=== PATIENT | male | born 1945 | race Caucasian/White ===

== ENCOUNTER 2016-08-07 07:42 | Emergency (ER) | payer MEDICARE, BC ==
[2016-08-07 07:52] VITALS: BP 138/66
[2016-08-07] MEDS ORDERED: Albuterol 2.5 MG/3 ML NEB.SOL* (0.083%) INH ONE (08:18)
[2016-08-07] MEDS ORDERED: Ipratropium 0.5MG/2.5ML NEB* 0.5 MG/2.5 ML NEB.SOLN INH ONE (08:18)
[2016-08-07] MEDS ORDERED: methylPREDNISolone SOD SUCC* 125 MG 2 ML VIAL IM ONE (08:33)
--- NOTE | 2016-08-27 20:53 | UC ---
ruben Pal Timothy, scribed for Esther Gooden DO on 08/07/16 at 0800 . Throat Pain/Nasal Adrián HPI - HPI Summary HPI Summary: Marty Mcmahon is a 71 yo male presenting to [facility] with clear, productive cough with associated CP and sinus ache and pressure since 08/03/16. The cough woke him up this morning. He is not in any current pain. He also c/o chest congestion. He is wheezing, but denies any SOB, or any other symptoms. He has self- medicated with mucinex with no relief. He states his O2 sat is normally around 97. His MHx includes CAD, LBBB, stent x2, CHF, angina, MVP, pacemaker, TN , HTN , COPD, Afib, bronchitis, renal disease, mixed HLD, borderline DM, and tobacco use (3-4 cigarettes/day). - History of Current Complaint Stated Complaint: COUGH Time Seen by Provider: 08/07/16 08:08 Hx Obtained From: Patient Onset/Duration: Gradual Onset, Lasting Days, Still Present Severity: Mild Pain Intensity: 0 Pain Scale Used: 0-10 Numeric Cough: Productive - clear sputum Associated Signs & Symptoms: Positive: Sinus Discomfort, Nasal Discharge - Allergies/Home Medications Allergies/Adverse Reactions: Allergies Allergy/AdvReac Type Severity Reaction Status Date / Time Bee Venom Allergy Severe HYPOTENSION Verified 08/07/16 07:52 ADHESIVES Allergy Intermediate Rash Uncoded 08/07/16 07:52 Home Medications: Home Medications Pseudoephedrine-Guaifenesin [Mucinex D 60-600 mg] 1 PO PRN 08/07/16 [History] PMH/Surg Hx/FS Hx/Imm Hx Endocrine History Of: Reports: Diabetes Denies: Thyroid Disease Cardiovascular History Of: Reports: Cardiac Disorders, Hypertension, Pacemaker/ ICD, Congestive Heart Failure, Atrial Fibrillation - CARDIOVERSION 05/2013 Denies: Myocardial Infarction Respiratory History Of: Reports: COPD, Bronchitis Denies: Asthma GI/ History Of: Reports: Renal Disease - biopsy R kidney /stones Denies: Ulcer - Surgical History Surgical History: Yes Surgery Procedure, Year, and Place: 2 CARDIAC STENTS 2008, DIONI BETH. TONSILECTOMY A CHILD, pacemaker august 2013; cardioversion 2012 - Family History Known Family History: Positive: Cardiac Disease, Hypertension, Diabetes - Social History Alcohol Use: Weekly Alcohol Amount: 10 BEERS PER WEEK -varies Substance Use Type: None Smoking Status (MU): Light Every Day Tobacco Smoker Type: Cigarettes, eCigarettes Amount Used/How Often: 1 pack per week but varies Length of Time of Smoking/Using Tobacco: 50 Have You Smoked in the Last Year: Yes When Did the Patient Quit Smoking/Using Tobacco: 05/2013 Household Exposure Type: Cigarettes Cessation Counseling: Patient Advised to Stop - Immunization History Most Recent Influenza Vaccination: 03/16 Most Recent Tetanus Shot: 2008 Most Recent Pneumonia Vaccination: 2010 Review of Systems Constitutional: Negative Skin: Negative Eyes: Negative ENT: Sore Throat, Nasal Discharge Respiratory: Cough Cardiovascular: Chest Pain - from cough Gastrointestinal: Negative Genitourinary: Negative Motor: Negative Neurovascular: Negative Musculoskeletal: Negative Neurological: Negative Psychological: Negative All Other Systems Reviewed And Are Negative: Yes Physical Exam Triage Information Reviewed: Yes Appearance: Well-Appearing, No Pain Distress, Obese Vital Signs: Initial Vital Signs Temp 97.1 F 08/07/16 07:48 Pulse 61 08/07/16 07:48 Resp 18 08/07/16 07:48 BP 138/66 08/07/16 07:48 Pulse Ox 93 08/07/16 07:48 Vital Signs Reviewed: Yes Eye Exam: Normal Eyes: Positive: Conjunctiva Clear. Negative: Discharge ENT: Positive: Hearing grossly normal, Pharynx normal, TMs normal. Negative: Tonsillar swelling, Tonsillar exudate, Muffled/hoarse voice Neck: Positive: Supple, Nontender Respiratory: Positive: No respiratory distress, No accessory muscle use, Wheezing - diffuse, all martinez Cardiovascular: Positive: RRR - paced, No Murmur Musculoskeletal Exam: Normal Neurological Exam: Normal Neurological: Positive: Alert, Muscle Tone Normal Psychological Exam: Normal Psychological: Positive: Age Appropriate Behavior Skin Exam: Normal - warm, dry, normal color Re-Evaluation - Re-Evaluation First Eval Re-Evaluation Time: 08:36 Change: Unchanged Comment: Informed Pt of consult with pharmacy Second Eval Re-Evaluation Time: 09:19 Change: Improved Comment: Pt condition is improved, significant decrease in wheezing, now only diffuse scattered wheezes. Third Eval Re-Evaluation Time: 09:35 Change: Improved Comment: Informed Pt of dispositon, Pt is agreeable with course of Tx. Throat Pain/Nasal Course/Dx - Course Assessment/Plan: Marty Mcmahon is a 71 yo male presenting to [facility] with sinus pain and pressure and cough since 08/03/16. After clinical examination, he will be discharged home with ? and appropriate instructions. - Differential Dx/Diagnosis Differential Diagnosis/HQI/PQRI: Sinusitis, URI Provider Diagnoses: COPD exacerbation, sinusitis - Physician Notification/Consults Discussed Patient Care With: 08Brenda - Sadie (pharmacy) - Discussed use of nebulizer given Pt's PCP recommendation against, due to B-maria esther usage. 09?? - ? (pharmacy) - Called to cancel previous order of augmentin placed. Doxycycline was Rx as a substitute. Discharge - Discharge Plan Condition: Stable Disposition: HOME Prescriptions: Amoxicillin/Clavulanate TAB* [Augmentin TAB 875*] 875 mg PO BID #20 tab predniSONE TAB* [Deltasone TAB*] 40 mg PO DAILY #8 tab Patient Education Materials: Sinusitis (ED), COPD (Chronic Obstructive Pulmonary Disease) (ED) Referrals: Dafne Guerrero MD [Primary Care Provider] - 3 Days (FOLLOW IN 2-3 DAYS. YOU WILL NEED TO HAVE YOU INR RECHECKED.) Additional Instructions: AUGMENTIN: Augmentin is a mixture of amoxicillin and clavulanate. Amoxicillin is a member of the penicillin family. It covers the germs likely to cause ear, bronchial, and urinary infections better than plain penicillin. The addition of clavulanate allows it to cover staph infections of the skin, as well as resistant cases of ear and sinus infections. Your physician has chosen Augmentin for you because of the special nature of your situation. Augmentin is best taken with meals. Nausea after taking the medication is rare, but can occur. Diarrhea can occur, particularly in small children. Vaginal yeast infections, and oral thrush in infants are also common. Contact your physician if these problems occur. Allergy to penicillins is common. If you have had an allergic reaction to any drug of the penicillin family, you should never take any other penicillin. Notify your doctor at once if you develop hives, shortness of breath, swelling, or faintness. ANY TIME YOU TAKE AN ANTIBIOTIC, IT IS IMPORTANT TO REPLENISH THE BODY'S BALANCE OF "GOOD" BACTERIA BY EATING HIGH QUALITY CULTURED FOOD SUCH YOGURT, SAURKRAUT OR MARIA FERNANDA CHI AND/OR TAKING A PROBIOTIC SUPPLEMENT. CORTICOSTEROID MEDICATION: You have been given a medicine of the cortisone class. This medication is used to control inflammation or allergy. It is usually only given for a short period of time, until the acute process subsides. There are usually no side effects from short-term use of cortisone-like medications. Some persons feel an increased sense of well-being and are not sleepy at bedtime. Long-term use of cortisone medications is best avoided, unless required for a severe condition. If your condition does not remit, or relapses after the course of corticosteroid medication, you should consult your physician. Contact the physician if you develop lightheadedness, black or tarry stools , swelling of the legs, or significant rapid change in weight. Please follow up with your primary care physician regarding your visit to urgent care today. Return to urgent care or the emergency department with any new or recurring symptoms. The documentation as recorded by the ruben noguera Timothy accurately reflects the service I personally performed and the decisions made by , Esther Gooden DO.
== END 2016-08-07 09:44 | disposition home or self-care (01) ==
LOC: UCEAST 07:42
DX: J44.1 Chronic obstructive pulmonary disease with (acute) exacerbation (principal); J32.9 Chronic sinusitis, unspecified; Z95.0 Presence of cardiac pacemaker; I10 Essential (primary) hypertension; I48.91 Unspecified atrial fibrillation; Z95.5 Presence of coronary angioplasty implant and graft; E66.9 Obesity, unspecified; F17.210 Nicotine dependence, cigarettes, uncomplicated
CPT/HCPCS: 96372; 99212; G0463; J2930; J7644

== ENCOUNTER 2017-05-20 03:40 | Inpatient (IN) | payer MEDICARE, BC ==
[2017-05-20] MEDS ORDERED: NS 0.9% 1000 ML* 1,000 ML IV ONE (04:21)
[2017-05-20 05:19] LABS: Hematocrit 44 % (42-52); Hemoglobin 14.5 g/dl (14.0-18.0); Mean Corpuscular HGB Conc 33 g/dl (31-36); Mean Corpuscular Hemoglobin 32 pg (27-31); Mean Corpuscular Volume 96 fL (80-94); Mean Platelet Volume 10 um3 (7.4-10.4); Red Blood Count 4.58 10^6/ul (4.0-5.4); Red Cell Distribution Width 15 % (10.5-15)
[2017-05-20 05:24] LABS: Urine Bacteria Absent (Absent); Urine Bilirubin Negative (Negative); Urine Glucose Negative (Negative); Urine Nitrite Negative (Negative)
[2017-05-20 05:31] LABS: Albumin 3.6 g/dL (3.2-5.2); BUN/Creatinine Ratio 30.6 (8-20); EGFR Non-African American 75.4 (>60); Total Bilirubin 0.8 mg/dL (0.2-1.0); Total Protein 6.6 g/dL (6.4-8.9)
[2017-05-20] MEDS ORDERED: Iodixanol* (CONTRAST) 320 MG/ML 100 ML SDV IV ONE (05:38)
[2017-05-20 05:45] LABS: Troponin I 0.04 ng/mL (<0.04)
[2017-05-20 05:50] LABS: Potassium 4.7 mmol/L (3.5-5.0)
--- NOTE | 2017-05-20 07:03 | ED ---
Gilbert Pal Jason, scribed for Miguel A Mai on 05/20/17 at 0426 . Abdominal Pain/Male - HPI Summary HPI Summary: This patient is a 72 year old M presenting to [facility] accompanied by daughter with a chief complaint of lower abdominal pain since 0300 today. 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 The patient rates the pain 2/10 in severity. Symptoms aggravated by nothing. Symptoms alleviated by nothing. Patient denies nausea, vomiting, and fever. - History of Current Complaint Chief Complaint: EDUrogenitalProblems Stated Complaint: BLOOD IN URINE Time Seen by Provider: 05/20/17 04:13 Hx Obtained From: Patient, Family/Rounding And Backing Machine Operator - daughter Onset/Duration: Sudden Onset, Lasting Hours - since 0300, Still Present Timing: Constant Pain Intensity: 2 Pain Scale Used: 0-10 Numeric Location: Discrete At: RLQ, Discrete At: LLQ Aggravating Factor(s): Nothing Alleviating Factor(s): Nothing Associated Signs And Symptoms: Positive: Other - abdominal pain, and hematuria. Patient denies nausea, vomiting, and fever. - Allergies/Home Medications Allergies/Adverse Reactions: Allergies Allergy/AdvReac Type Severity Reaction Status Date / Time Bee Venom Allergy Severe Swelling Verified 05/20/17 03:51 ADHESIVES Allergy Intermediate Rash Uncoded 05/20/17 03:51 PMH/Surg Hx/FS Hx/Imm Hx Previously Healthy: No Endocrine/Hematology History: Reports: Hx Diabetes Denies: Hx Thyroid Disease, Hx Anemia Cardiovascular History: Reports: Hx Angina, Hx Congestive Heart Failure, Hx Coronary Artery Disease - 2 CARDIAC STENTS, Hx Hypertension, Hx Pacemaker/ICD, Hx Rheumatic Fever - A CHILD, Hx Valvular Heart Disease - MVP, Other Cardiovascular Problems/Disorders - stent placement Denies: Hx Hypercholesterolemia, Hx Myocardial Infarction Respiratory History: Reports: Hx Chronic Obstructive Pulmonary Disease (COPD), Other Respiratory Problems/Disorders Denies: Hx Asthma GI History: Denies: Hx Jaundice, Hx Ulcer, Other GI Disorders History: Reports: Hx Renal Disease - biopsy R kidney /stones, Other Problems/Disorders - HEMATURIA Musculoskeletal History: Denies: Other Musculoskeletal History Sensory History: Reports: Hx Contacts or Glasses - GLASSES Denies: Hx Hearing Aid Opthamlomology History: Reports: Hx Contacts or Glasses - GLASSES Neurological History: Denies: Other Neuro Impairments/Disorders - Cancer History Cancer Type, Location and Year: LUNG LESION FOUND TO BE A CYST BY REPORT - Surgical History Surgery Procedure, Year, and Place: 2 CARDIAC STENTS 2008, DIONI BETH. TONSILECTOMY A CHILD, pacemaker august 2013; cardioversion 2012 [id number] Hx Anesthesia Reactions: No - Immunization History Date of Tetanus Vaccine: 2008 Date of Influenza Vaccine: 2012 Infectious Disease History: No Infectious Disease History: Denies: Hx Clostridium Difficile, Hx Hepatitis, Hx Human Immunodeficiency Virus (HIV), Hx of Known/Suspected MRSA, Hx Shingles, Hx Tuberculosis, Hx Known/ Suspected VRE, Hx Known/Suspected VRSA, History Other Infectious Disease, Traveled Outside the [place] in Last 30 Days - Family History Known Family History: Negative: Renal Disease, Blood Disorder - Social History Occupation: Retired Alcohol Use: Weekly Alcohol Amount: 10 BEERS PER WEEK -varies Substance Use Type: Reports: None Hx Tobacco Use: Yes Smoking Status (MU): Light Every Day Tobacco Smoker Type: Cigarettes, eCigarettes Amount Used/How Often: 1 pack per week but varies Length of Time of Smoking/Using Tobacco: 50 Have You Smoked in the Last Year: Yes Review of Systems Negative: Fever Positive: Abdominal Pain - RLQ, LLQ. Negative: Vomiting, Nausea Positive: other - Hematuria All Other Systems Reviewed And Are Negative: Yes Physical Exam - Summary Physical Exam Summary: Appearance: Well appearing, no pain distress Skin: warm, dry, reflects adequate perfusion Head/face: normal Eyes: EOMI, JOSI ENT: normal Neck: supple, non-tender Respiratory: CTA, breath sounds present Cardiovascular: RRR, pulses symmetrical Abdomen: Soft. Tenderness in right and left lower quadrants. Bowel: present Musculoskeletal: normal, strength/ROM intact Neuro: normal, sensory motor intact, A&Ox3 Triage Information Reviewed: Yes Vital Signs On Initial Exam: Initial Vitals Temp Pulse Resp BP Pulse Ox 98.0 F 61 14 110/60 92 05/20/17 03:44 05/20/17 03:44 05/20/17 03:44 05/20/17 03:44 05/20/17 03:44 Vital Signs Reviewed: Yes Diagnostics - Vital Signs Vital Signs Temp Pulse Resp BP Pulse Ox 05/20/17 03:44 98.0 F 61 14 110/60 92 - Laboratory Lab Results: Lab Results 05/20/17 05/20/17 05/20/17 Range/Units 04:40 04:40 04:40 WBC 12.0 H (3.5-10.8) 10^3/ul RBC 4.58 (4.0-5.4) 10^6/ul Hgb 14.5 (14.0-18.0) g/dl Hct 44 (42-52) % MCV 96 H (80-94) fL MCH 32 H (27-31) pg MCHC 33 (31-36) g/dl RDW 15 (10.5-15) % Plt Count 159 (150-450) 10^3/ul MPV 10 (7.4-10.4) um3 Neut % (Auto) 87.0 H (38-83) % Lymph % (Auto) 9.0 L (25-47) % [place] % (Auto) 0.8 L (1-9) % Eos % (Auto) 2.7 (0-6) % Baso % (Auto) 0.5 (0-2) % Absolute Neuts (auto) 10.4 H (1.5-7.7) 10^3/ul Absolute Lymphs (auto) 1.1 (1.0-4.8) 10^3/ul Absolute Monos (auto) 0.1 (0-0.8) 10^3/ul Absolute Eos (auto) 0.3 (0-0.6) 10^3/ul Absolute Basos (auto) 0.1 (0-0.2) 10^3/ul Absolute Nucleated RBC 0 10^3/ul Nucleated RBC % 0 INR (Anticoag Therapy) 4.19 H (0.77-1.02) APTT 45.3 H (26.0-36.3) seconds Sodium 135 (133-145) mmol/L Potassium 4.7 (3.5-5.0) mmol/L Chloride 100 L (101-111) mmol/L Carbon Dioxide 33 H (22-32) mmol/L Anion Gap 2 (2-11) mmol/L BUN 30 H (6-24) mg/dL Creatinine 0.98 (0.67-1.17) mg/dL Est GFR ( Amer) 97.0 (>60) Est GFR (Non-Af Amer) 75.4 (>60) BUN/Creatinine Ratio 30.6 H (8-20) Glucose 110 H (70-100) mg/dL Calcium 9.0 (8.6-10.3) mg/dL Total Bilirubin 0.80 (0.2-1.0) mg/dL AST 28 (13-39) U/L ALT 36 (7-52) U/L Alkaline Phosphatase 72 (34-104) U/L Troponin I 0.04 H* (<0.04) ng/mL Total Protein 6.6 (6.4-8.9) g/dL Albumin 3.6 (3.2-5.2) g/dL Globulin 3.0 (2-4) g/dL Albumin/Globulin Ratio 1.2 (1-3) Lipase 25 (11.0-82.0) U/L Urine Color Urine Appearance Urine pH (5-9) Ur Specific [place] (1.010-1.030) Urine Protein (Negative) Urine Ketones (Negative) Urine Blood (Negative) Urine Nitrate (Negative) Urine Bilirubin (Negative) Urine Urobilinogen (Negative) Ur Leukocyte Esterase (Negative) Urine WBC (Auto) (Absent) Urine RBC (Auto) (Absent) Urine Bacteria (Absent) Urine Glucose (Negative) Urine Ascorbic Acid 05/20/17 Range/Units 05:05 WBC (3.5-10.8) 10^3/ul RBC (4.0-5.4) 10^6/ul Hgb (14.0-18.0) g/dl Hct (42-52) % MCV (80-94) fL MCH (27-31) pg MCHC (31-36) g/dl RDW (10.5-15) % Plt Count (150-450) 10^3/ul MPV (7.4-10.4) um3 Neut % (Auto) (38-83) % Lymph % (Auto) (25-47) % [place] % (Auto) (1-9) % Eos % (Auto) (0-6) % Baso % (Auto) (0-2) % Absolute Neuts (auto) (1.5-7.7) 10^3/ul Absolute Lymphs (auto) (1.0-4.8) 10^3/ul Absolute Monos (auto) (0-0.8) 10^3/ul Absolute Eos (auto) (0-0.6) 10^3/ul Absolute Basos (auto) (0-0.2) 10^3/ul Absolute Nucleated RBC 10^3/ul Nucleated RBC % INR (Anticoag Therapy) (0.77-1.02) APTT (26.0-36.3) seconds Sodium (133-145) mmol/L Potassium (3.5-5.0) mmol/L Chloride (101-111) mmol/L Carbon Dioxide (22-32) mmol/L Anion Gap (2-11) mmol/L BUN (6-24) mg/dL Creatinine (0.67-1.17) mg/dL Est GFR ( Amer) (>60) Est GFR (Non-Af Amer) (>60) BUN/Creatinine Ratio (8-20) Glucose (70-100) mg/dL Calcium (8.6-10.3) mg/dL Total Bilirubin (0.2-1.0) mg/dL AST (13-39) U/L ALT (7-52) U/L Alkaline Phosphatase (34-104) U/L Troponin I (<0.04) ng/mL Total Protein (6.4-8.9) g/dL Albumin (3.2-5.2) g/dL Globulin (2-4) g/dL Albumin/Globulin Ratio (1-3) Lipase (11.0-82.0) U/L Urine Color Red A Urine Appearance Cloudy Urine pH 5.0 (5-9) Ur Specific [place] 1.021 (1.010-1.030) Urine Protein 2+(100 mg/dl) H (Negative) Urine Ketones Negative (Negative) Urine Blood 2+ H (Negative) Urine Nitrate Negative (Negative) Urine Bilirubin Negative (Negative) Urine Urobilinogen Negative (Negative) Ur Leukocyte Esterase Negative (Negative) Urine WBC (Auto) Absent (Absent) Urine RBC (Auto) 3+(>10/hpf) H (Absent) Urine Bacteria Absent (Absent) Urine Glucose Negative (Negative) Urine Ascorbic Acid Not Reportable Result Diagrams: 05/20/17 04:40 05/20/17 04:40 Lab Statement: Any lab studies that have been ordered have been reviewed, and results considered in the medical decision making process. - Radiology CXR Radiology Interpretation Completed By: ED Physician - CXR reveals Bilateral pleural effusions Abdominal Pain Fem Course/Dx - Course Course Of Treatment: This patient is a 72 year old M presenting to [facility] accompanied by daughter with a chief complaint of lower abdominal pain since 299 today. CXR reveals Bilateral pleural effusions. - Diagnoses Provider Diagnoses: Abdominal pain, Hematuria Discharge - Discharge Plan Condition: Stable Disposition: OTHER Discharge Disposition Comment: Patient is signed out to Dr. Gómez, pending disposition, awaiting _ Referrals: Dafne Guerrero MD [Primary Care Provider] - The documentation as recorded by the Gilbert noguera Jason accurately reflects the service I personally performed and the decisions made by Pau nguyễn Emmanuel.
[2017-05-20] MEDS ORDERED: Morphine INJ* 4 MG/ML 1 ML CARPUJECT IV ONE (07:30)
[2017-05-20] MEDS ORDERED: Ondansetron INJ* 2 MG/ML VIAL ONE (07:48)
[2017-05-20] MEDS ORDERED: Ondansetron INJ* 2 MG/ML VIAL IV ONE (07:50)
[2017-05-20] MEDS ORDERED: Albuterol 2.5 MG/3 ML NEB.SOL* (0.083%) INH ONE (07:55)
--- NOTE | 2017-05-20 08:18 | RAD ---
HISTORY: Abdominal pain, cough COMPARISONS: February 21, 2015 VIEWS: 1: frontal portable view of the chest at 4:50 AM FINDINGS: LINES AND TUBES: A left-sided pacemaker is noted. CARDIOMEDIASTINAL SILHOUETTE: The cardiac silhouette is enlarged. The cardiomediastinal silhouette is otherwise normal for portable technique. PLEURA: There is blunting of costophrenic angles bilaterally. LUNG PARENCHYMA: There is confluent alveolar opacification of the left lower lung and to a lesser extent of the right lower lung ABDOMEN: The upper abdomen is clear. There is no subphrenic gas. BONES AND SOFT TISSUES: No bone or soft tissue abnormalities are noted. IMPRESSION: 1. CARDIOMEGALY. 2. SMALL BILATERAL PLEURAL EFFUSIONS. 3. LEFT GREATER THAN RIGHT BIBASILAR ATELECTASIS VERSUS CONSOLIDATION
--- NOTE | 2017-05-20 08:35 | RAD ---
CLINICAL HISTORY: Abdominal tenderness, rule out diverticulitis COMPARISON: April 11, 2017 TECHNIQUE: Multiple contiguous axial CT scans were obtained of the abdomen and pelvis after the administration of intravenous contrast. Coronal and sagittal multiplanar reformations are submitted for review. Oral contrast was administered. Delayed images were obtained through the abdomen and pelvis. FINDINGS: LUNG BASES: There is a small right pleural effusion. There is left basilar atelectasis. LIVER: The liver is normal in shape, size, contour, and attenuation. BILE DUCTS: There is no intrahepatic or extrahepatic biliary dilatation. GALLBLADDER: A gallstone is noted at the neck of the gallbladder. There is no pericholecystic inflammatory change. PANCREAS: The pancreas is normal, without mass or ductal dilatation. SPLEEN: Normal in size and appearance. UPPER GI TRACT: Evaluation of the gastrointestinal tract is limited by incomplete gastric distention. There is focal mucosal thickening of the cecum best seen on coronal images 54 through 36. There is diverticulosis of the sigmoid colon. There is mild stranding of the pericolonic fat with minimal fluid along the antimesenteric margin of the sigmoid. SMALL BOWEL AND MESENTERY: The small bowel is normal in contour, course, and caliber. There is no obstruction or dilatation. COLON: The colon is normal in contour, course, caliber. There is no pericolonic inflammatory change. ADRENALS: Normal bilaterally. KIDNEYS: Renal cysts are noted. BLADDER: The bladder is smooth in contour. PELVIC ORGANS: The prostate is mildly enlarged. The seminal vesicles are symmetric. AORTA: There is calcific atherosclerotic disease of the abdominal aorta and its branches, without aneurysmal dilatation IVC: Unremarkable LYMPH NODES: Again noted is retroperitoneal lymphadenopathy. ABDOMINAL WALL: There is no evidence for abdominal wall hernia. BONES AND SOFT TISSUES: There are mild diffuse degenerative changes. Again noted are enhancing nodules within the retroperitoneum on the right. OTHER: None IMPRESSION: 1. DIVERTICULITIS WITHOUT LOCULATED FLUID COLLECTION TO SUGGEST ABSCESS. 2. AGAIN NOTED IS RETROPERITONEAL LYMPHADENOPATHY WITH ENHANCING NODULES OF THE RETROPERITONEUM ON THE RIGHT MOST CONSISTENT WITH NEOPLASM. 3. THERE IS FOCAL MUCOSAL THICKENING OF THE ASCENDING COLON. RECOMMEND CONSIDERATION OF CORRELATION WITH DIRECT VISUALIZATION. 4. SMALL RIGHT PLEURAL EFFUSION. 5. ATHEROSCLEROSIS. 6. CHOLELITHIASIS.
[2017-05-20] MEDS ORDERED: NS 0.9% 1000 ML* 1,000 ML IV SCH (10:30)
[2017-05-20] MEDS ORDERED: Dextrose 50% Syringe 50 ML* 25 GM/50 ML SYRINGE IV PUSH PRN (10:56)
[2017-05-20] MEDS: Cefepime(*) 1 GM in NS 0.9% 50 ML* 50 ML IVPB SCH ×2 (11:24→22:49)
[2017-05-20 11:32] LABS: Hematocrit 40 % (42-52); Hemoglobin 13.5 g/dl (14.0-18.0)
--- NOTE | 2017-05-20 13:04 | HP ---
CC: Dr. Guerrero; Dr. Carrillo; Dr. Vizcaino; Dr. Benitez * ADMISSION HISTORY AND PHYSICAL: DATE OF ADMISSION: 05/20/17. PRIMARY CARE PROVIDER: Dr. Guerrero. HEALTHCARE PROXY: His . CODE STATUS: Full. SOURCE OF INFORMATION: History obtained from interview of the patient, review of past medical records. RELIABILITY: Good. CHIEF COMPLAINT: Increased hematuria, abdominal pain. HISTORY OF PRESENT ILLNESS: This is a 72-year-old man with history of metastatic adenocarcinoma of unknown primary source, past history of microscopic and macroscopic hematuria, recently started chemotherapy 3 days prior to presentation, was feeling well, no nausea or vomiting, increased fatigue, had good appetite for the last several days. However, at 8:30 p.m. the day prior to presentation, had dark red urine, that persisted overnight. He called his oncologist at the initiation of the hematuria, but at that time patient was not experiencing any other symptomatology, particularly absence of abdominal pain. Around 2:30 a.m. the night prior to admission, he continued to have dark red hematuria and had onset of lower abdominal pain, described as left radiating to right abdominal pain that was constant, described as stabbing. With the persistent hematuria and onset of abdominal pain, the patient presents to the emergency room for evaluation. Of note, he has been constipated. He is still denying nausea. He has had some cough since his EGD in April, but denies fevers or chills. He has noted increased back pain over the last several weeks that was increasingly worse yesterday and last night as well. When seen by this author, he had received morphine 4 mg IV, was slightly sedated and noted that all of his abdominal and back pain was resolved. Hematuria was not witnessed by this author; however, on discussion with nursing , the urine is dark maroon color. PAST MEDICAL HISTORY: Includes CAD status post PCI, ICD/permanent pacemaker for tachy-phill syndrome, paroxysmal atrial fibrillation, COPD, type 2 diabetes , hypertension, macroscopic hematuria, BPH, ischemic cardiomyopathy, hyperlipidemia. HOME MEDICATIONS: List was brought with patient and reviewed: 1. Lipitor 80 mg in the evening. 2. Baby aspirin 81 mg daily. 3. Coumadin 5 mg in the evenings. 4. Sotalol 60 mg twice daily. 5. Losartan 25 mg daily. 6. Lasix 20 mg daily. 7. Potassium chloride ER 8 mEq daily. 8. Glipizide 2.5 mg daily. Of note, patient was holding aspirin and Coumadin starting yesterday evening in preparation for port placement, planned for this Sunday by Dr. Mancera. ALLERGIES: To BEES and ADHESIVES. FAMILY HISTORY: Father with CAD, type 2 diabetes, CVA. Mother with breast cancer. Sister with thyroid cancer. Daughter with breast cancer and he has an aunt with breast cancer. SOCIAL HISTORY: He smokes 3 to 5 cigarettes per day. He smokes for approximately 50 years, at most one and a half packs per day. He drinks alcohol several times a week when out with friends, and when he is out, he drinks about 5 drinks. REVIEW OF SYSTEMS: As per HPI. Notable for constipation, cough, abdominal pain , hematuria. Otherwise, all other systems negative. PHYSICAL EXAMINATION VITAL SIGNS: When seen by this author, 114/59, heart rate 69, respiratory rate was 30, and 94% on 2 L. T-max in the emergency room was 98 degrees Fahrenheit. DIAGNOSTIC STUDIES/LAB DATA: Pertinent labs reviewed. White blood cell count is 12,000, 87% neutrophils, platelets 159, hemoglobin 14.5. INR is 4.19. Bicarb 33, BUN 30, creatinine 0.98. Troponin I 0.04. Urine positive for protein and blood. Data reviewed. CT abdomen and pelvis, impression: Diverticulitis without loculated fluid collections to suggest abscess. Again noted is retroperitoneal lymphadenopathy with enhancing nodules of the retroperitoneum on the right most consistent with neoplasm. There is focal mucosal thickening of the ascending colon, recommend consideration of correlation with direct visualization. Small right pleural effusion. Atherosclerosis. Cholelithiasis. EKG, ventricularly paced. ASSESSMENT AND PLAN: This 72-year-old man, history of metastatic adenocarcinoma , received his first chemotherapy suspecting carbo/Taxol 3 days prior to presentation, now presenting with abdominal pain and increasing macroscopic hematuria. 1. Elevated troponins, suspecting type 2 and STEMI in the setting of demand ischemia. Repeat now. Holding aspirin in the setting of macroscopic hematuria. 2. Supratherapeutic INR, hold Coumadin and observe. The patient was to hold Coumadin and aspirin in preparation for port placement this Sunday regardless. 3. Metastatic adenocarcinoma, observe, contact Oncology and inform them of his admission. 4. Macroscopic hematuria, repeat hemoglobin and hematocrit now, trend for any change in the patient's hemoglobin. If stable, repeat in the morning. 5. Atrial fibrillation, holding Coumadin, continue sotalol. 6. Cough has been present since EGD. There is some concern that there is consolidation on chest x-ray. We will chose antibiotics. We will also cover diverticulitis. We will treat with cefepime. 7. Type 2 diabetes, hold glipizide, start lispro sliding scale. 8. Hypertension, continue losartan tomorrow. Hold Lasix, continue losartan starting tomorrow with hold parameters. 9. Diverticulitis, cefepime. Start clear liquid diet; if he tolerates without abdominal pain, can advance. Morphine IV. 10. DVT prophylaxis with SCDs in setting of active bleed. 11. Code status is full. Discussed with patient and his . [id number]/[facility] #: [id number] KAI
[2017-05-20] MEDS: Insulin LISPRO* 1 UNITS UNIT SUBCUT SCH ×3 (13:23→21:58)
[2017-05-20] MEDS: Morphine INJ* 4 MG/ML 1 ML CARPUJECT IV PRN ×2 (14:55→22:01)
--- NOTE | 2017-05-20 20:29 | ED ---
Elicia Pal Gabriel, scribed for Jeanne Ortiz MD on 05/20/17 at 0742 . Progress - Progress Note Progress Note: This patient was signed out from Dr. Mai, pending disposition, awaiting CT. CT reveals Nonspecific bilateral infiltrates are most likely due to atelectasis scarring and pneumonia. The patients condition is stable and will be admitted to [facility] with Dx of PNA, gross hematuria, adenocarcinoma, and unknown primary. Patient was evaluated while awaiting CT results. Patient reports diffuse lower back pain, ABD pain, productive cough with yellow sputum, difficulty having BMs. Pt states he is having difficulty having eating due to chemo. Course/Dx - Course Course Of Treatment: This patient is a 72 year old M presenting to [facility] accompanied by daughter with a chief complaint of lower abdominal pain since 0300 today. CXR reveals Bilateral pleural effusions. Pt to be admitted for pneumonia and gross hematuria - Diagnoses Provider Diagnoses: Abdominal pain, Hematuria, PNA (pneumonia), Adenocarcinoma, unkown primary - Provider Notifications Discussed Care Of Patient With: Master Mckeon Time Discussed With Above Provider: 07:42 Instructed by Provider To: Other - Discussed patent care with Dr. Mckeon, radiology. He discussed the results of the patients CT, which were retroperitoneal masses, bi lobular infiltrates, extensive lymph nodes in retroperitoneum, and PNA. 0827 We discussed patient care with Dr. Jason, hospitalist and they accepted the patient for admittance. The documentation as recorded by the Elicia noguera Gabriel accurately reflects the service I personally performed and the decisions made by , Jeanne Ortiz MD.
[2017-05-20] MEDS: Atorvastatin* 80 MG TAB PO SCH (21:08)
[2017-05-20] MEDS: Sotalol TAB* 80 MG PO SCH (22:46)
[2017-05-21 04:51] LABS: Hematocrit 39 % (42-52); Hemoglobin 13.3 g/dl (14.0-18.0); Mean Corpuscular HGB Conc 34 g/dl (31-36); Mean Corpuscular Hemoglobin 33 pg (27-31); Mean Corpuscular Volume 96 fL (80-94); Mean Platelet Volume 9 um3 (7.4-10.4); Red Blood Count 4.04 10^6/ul (4.0-5.4); Red Cell Distribution Width 15 % (10.5-15); White Blood Count 9.1 10^3/ul (3.5-10.8)
[2017-05-21] MEDS: Morphine INJ* 4 MG/ML 1 ML CARPUJECT IV PRN ×2 (06:33→21:59)
[2017-05-21] MEDS: Potassium Chlor TAB* 10 MEQ TAB.ER PO SCH (09:28)
[2017-05-21] MEDS: Sotalol TAB* 80 MG PO SCH ×2 (09:29→21:58)
[2017-05-21] MEDS: Losartan TAB* 25 MG PO SCH (09:29)
[2017-05-21] MEDS: Furosemide TAB* 20 MG PO SCH (09:31)
[2017-05-21] MEDS: Insulin LISPRO* 1 UNITS UNIT SUBCUT SCH ×4 (09:34→21:59)
[2017-05-21] MEDS: Polyethylene Glycol 3350* 17 GM PACKET PO SCH (09:59)
--- NOTE | 2017-05-21 10:30 | PN ---
Progress Note - Progress Note Date of Service: 05/21/17 SOAP: Subjective: []Feels pretty good, but just got morphine. Using O2 PRN. Still dark brown/ red urine. Bloody nose. Coughing over the last several weeks. Had been getting SOB when laying flat at times. Medications: Atorvastatin Calcium (Lipitor*) 80 mg PO BEDTIME [facility] Last Admin: 05/20/17 21:08 Dose: 80 mg Dextrose (D50w Syringe 50 Ml*) 12.5 gm IV PUSH .FOR FS < 60 - SS PRN PRN Reason: FS < 60 Furosemide (Lasix Tab*) 20 mg PO QAM [facility] Last Admin: 05/21/17 09:31 Dose: 20 mg Cefepime HCl 1 gm/ Dextrose 50 mls @ 100 mls/hr IVPB 1100,2300 [facility] Insulin Human Lispro (Humalog*) 0 units SUBCUT ACHS [facility] PRN Reason: Protocol Last Admin: 05/21/17 09:34 Dose: 1 units Losartan Potassium (Cozaar Tab*) 25 mg PO QAM [facility] Last Admin: 05/21/17 09:29 Dose: 25 mg Morphine Sulfate (Morphine Inj (Syringe)*) 4 mg IV Q4H PRN PRN Reason: PAIN Last Admin: 05/21/17 06:33 Dose: 4 mg Polyethylene Glycol/Electrolytes (Miralax*) 17 gm PO DAILY [facility] Last Admin: 05/21/17 09:59 Dose: 17 gm Potassium Chloride (Klor Con Er Tab*) 10 meq PO QAM [facility] Last Admin: 05/21/17 09:28 Dose: 10 meq Sotalol HCl (Betapace Tab*) 60 mg PO BID [facility] Last Admin: 05/21/17 09:29 Dose: 60 mg Objective: [] Vital Signs Temp Pulse Resp BP Pulse Ox 97.6 F 62 20 120/60 94 05/21/17 07:43 05/21/17 09:33 05/21/17 08:04 05/21/17 07:43 05/21/17 07:43 A&Ox3, neuro grossly non-focal HRR, tele AV paced, rate 60s LS clear with dim. bases +BS, abd. soft and non-tender +PP=bilat., no edema noted Laboratory Results - last 24 hr 05/20/17 05/20/17 05/20/17 10:56 11:23 13:18 WBC RBC Hgb 13.5 L Hct 40 L MCV MCH MCHC RDW Plt Count MPV Neut % (Auto) Lymph % (Auto) [place] % (Auto) Eos % (Auto) Baso % (Auto) Absolute Neuts (auto) Absolute Lymphs (auto) Absolute Monos (auto) Absolute Eos (auto) Absolute Basos (auto) Absolute Nucleated RBC Nucleated RBC % INR (Anticoag Therapy) POC Glucose (mg/dL) 178 H Troponin I 0.04 H* 05/20/17 05/20/17 05/21/17 16:57 21:07 04:42 WBC 9.1 RBC 4.04 Hgb 13.3 L Hct 39 L MCV 96 H MCH 33 H MCHC 34 RDW 15 Plt Count 117 L MPV 9 Neut % (Auto) 90.2 H Lymph % (Auto) 4.5 L [place] % (Auto) 0.9 L Eos % (Auto) 4.1 Baso % (Auto) 0.3 Absolute Neuts (auto) 8.2 H Absolute Lymphs (auto) 0.4 L Absolute Monos (auto) 0.1 Absolute Eos (auto) 0.4 Absolute Basos (auto) 0 Absolute Nucleated RBC 0 Nucleated RBC % 0 INR (Anticoag Therapy) POC Glucose (mg/dL) 123 H 193 H Troponin I 05/21/17 05/21/17 04:42 07:38 WBC RBC Hgb Hct MCV MCH MCHC RDW Plt Count MPV Neut % (Auto) Lymph % (Auto) [place] % (Auto) Eos % (Auto) Baso % (Auto) Absolute Neuts (auto) Absolute Lymphs (auto) Absolute Monos (auto) Absolute Eos (auto) Absolute Basos (auto) Absolute Nucleated RBC Nucleated RBC % INR (Anticoag Therapy) 2.76 H POC Glucose (mg/dL) 143 H Troponin I Assessment: []72 yo male with newly diagnosed metastatic adenocarcinoma with unknown primary s/p C1 Carboplatin and Paclitaxel (today being D5) presenting to the hospital with hematuria and abdominal pain found to have diverticulitis and elevated INR. He has been experieincce a cough with small pleural effusions and sputum grew Haemophilus Parainfluenzae. Plan: []1. Pneumonia: haemophilus parainfluenzae, present on admission, cont. abx. 2. Diverticulitis: difficult to determine clinical significance, however may explain supratherapeutic INR (change in absorption), add miralax and cont. abx 3. Hematuria: unclear source (worked-up extensively by Dr. Benitez in the past), will cont. to follow with reversal of INR 4. A.Fib: long standing, pace controlled with meds, cont. tele fide. while off coumadin, elevated troponin likely stress induced and remains paced, will follow with repeat today in 4 hours 5. Hypercoagulation: hold coumadin 6. Cancer: expect counts to drop over next week. Currently planned for port placement 05/23, depending on current acute condition. Will need counts checked regardless AM of procedure.
[2017-05-21 10:50] LABS: Troponin I 0.06 ng/mL (<0.04)
[2017-05-21 10:57] LABS: BUN/Creatinine Ratio 32.2 (8-20); Calcium 8.9 mg/dL (8.6-10.3); EGFR Non-African American 83.2 (>60); Potassium 4.9 mmol/L (3.5-5.0)
[2017-05-21] MEDS: Cefepime(*) 1 GM in NS 0.9% 50 ML* 50 ML IVPB SCH (11:05)
[2017-05-21] MEDS: Cefepime(*) 1 GM in D5W 50 ML BAG* 50 ML IVPB SCH ×2 (11:10→22:38)
[2017-05-21] MEDS: Atorvastatin* 80 MG TAB PO SCH (21:58)
[2017-05-22] MEDS: Morphine INJ* 4 MG/ML 1 ML CARPUJECT IV PRN ×3 (01:53→20:23)
[2017-05-22 05:48] LABS: Hematocrit 37 % (42-52); Hemoglobin 12.6 g/dl (14.0-18.0); Mean Corpuscular HGB Conc 34 g/dl (31-36); Mean Corpuscular Hemoglobin 32 pg (27-31); Mean Corpuscular Volume 95 fL (80-94); Mean Platelet Volume 10 um3 (7.4-10.4); Red Blood Count 3.93 10^6/ul (4.0-5.4); Red Cell Distribution Width 15 % (10.5-15); White Blood Count 6.5 10^3/ul (3.5-10.8)
[2017-05-22 06:03] LABS: ALT 29 U/L (7-52); Albumin 3.1 g/dL (3.2-5.2); Alkaline Phosphatase 66 U/L (34-104); BUN/Creatinine Ratio 38.5 (8-20); Blood Urea Nitrogen 30 mg/dL (6-24); CO2 Carbon Dioxide 32 mmol/L (22-32); Calcium 8.7 mg/dL (8.6-10.3); Chloride 99 mmol/L (101-111); EGFR African American 126.2 (>60); EGFR Non-African American 98.1 (>60); Globulin 2.7 g/dL (2-4); Glucose 141 mg/dL (70-100); Sodium 131 mmol/L (133-145); Total Protein 5.8 g/dL (6.4-8.9)
[2017-05-22 08:11] LABS: AST 21 U/L (13-39)
[2017-05-22 08:12] LABS: Potassium 5.2 mmol/L (3.5-5.0)
[2017-05-22] MEDS: Insulin LISPRO* 1 UNITS UNIT SUBCUT SCH ×4 (09:09→20:22)
[2017-05-22] MEDS: Sotalol TAB* 80 MG PO SCH ×2 (09:10→20:29)
[2017-05-22] MEDS: Losartan TAB* 25 MG PO SCH (09:10)
[2017-05-22] MEDS: Potassium Chlor TAB* 10 MEQ TAB.ER PO SCH (09:10)
[2017-05-22] MEDS: Furosemide TAB* 20 MG PO SCH (09:10)
[2017-05-22] MEDS: Polyethylene Glycol 3350* 17 GM PACKET PO SCH (09:11)
[2017-05-22] MEDS: Magnesium Hydroxide LIQ* 30 ML UDC PO SCH ×2 (10:58→20:23)
[2017-05-22] MEDS: Cefepime(*) 1 GM in D5W 50 ML BAG* 50 ML IVPB SCH ×2 (10:58→22:50)
[2017-05-22] MEDS: Atorvastatin* 80 MG TAB PO SCH (20:23)
[2017-05-23] MEDS: Morphine INJ* 4 MG/ML 1 ML CARPUJECT IV PRN ×3 (00:55→21:31)
[2017-05-23 05:35] LABS: Hematocrit 36 % (42-52); Hemoglobin 12.2 g/dl (14.0-18.0); Mean Corpuscular HGB Conc 34 g/dl (31-36); Mean Corpuscular Hemoglobin 32 pg (27-31); Mean Corpuscular Volume 95 fL (80-94); Mean Platelet Volume 9 um3 (7.4-10.4); Red Blood Count 3.83 10^6/ul (4.0-5.4); Red Cell Distribution Width 15 % (10.5-15); White Blood Count 4.8 10^3/ul (3.5-10.8)
[2017-05-23 05:50] LABS: BUN/Creatinine Ratio 39.7 (8-20); Calcium 8.7 mg/dL (8.6-10.3); EGFR African American 136.2 (>60); EGFR Non-African American 105.9 (>60)
[2017-05-23 06:14] LABS: Potassium 5.3 mmol/L (3.5-5.0)
[2017-05-23] MEDS: Furosemide TAB* 20 MG PO SCH (08:38)
[2017-05-23] MEDS: Insulin LISPRO* 1 UNITS UNIT SUBCUT SCH ×4 (08:38→21:53)
[2017-05-23] MEDS: Losartan TAB* 25 MG PO SCH (08:38)
[2017-05-23] MEDS: Sotalol TAB* 80 MG PO SCH ×2 (08:38→22:07)
[2017-05-23] MEDS: Polyethylene Glycol 3350* 17 GM PACKET PO SCH (08:38)
[2017-05-23] MEDS: Magnesium Hydroxide LIQ* 30 ML UDC PO SCH ×2 (08:38→22:05)
[2017-05-23] MEDS: Cefepime(*) 1 GM in D5W 50 ML BAG* 50 ML IVPB SCH (11:16)
[2017-05-23] MEDS: Lactulose* 15 ML UDC PO SCH ×2 (14:11→22:05)
[2017-05-23] MEDS: Atorvastatin* 80 MG TAB PO SCH (22:06)
[2017-05-24] MEDS: Cefepime(*) 1 GM in D5W 50 ML BAG* 50 ML IVPB SCH (03:27)
[2017-05-24] MEDS ORDERED: Morphine INJ* 4 MG/ML 1 ML CARPUJECT IV PRN (05:40)
[2017-05-24] MEDS: Losartan TAB* 25 MG PO SCH (08:57)
[2017-05-24] MEDS: Polyethylene Glycol 3350* 17 GM PACKET PO SCH (08:58)
[2017-05-24] MEDS: Furosemide TAB* 20 MG PO SCH (08:58)
[2017-05-24] MEDS: Magnesium Hydroxide LIQ* 30 ML UDC PO SCH (08:58)
[2017-05-24] MEDS: Insulin LISPRO* 1 UNITS UNIT SUBCUT SCH (08:58)
[2017-05-24] MEDS: Lactulose* 15 ML UDC PO SCH (08:58)
[2017-05-24] MEDS: Sotalol TAB* 80 MG PO SCH (08:58)
[2017-05-24] MEDS ORDERED: diPHENhydraMINE PO* 25 MG PO PRN (09:56)
[2017-05-24] MEDS ORDERED: Dexamethasone TAB* 4 MG PO SCH (10:00)
[2017-05-24] MEDS ORDERED: oxyCODONE TAB* 5 MG TAB PO PRN (10:02)
[2017-05-24 10:39] LABS: Hematocrit 37 % (42-52); Hemoglobin 12.5 g/dl (14.0-18.0); Mean Corpuscular HGB Conc 34 g/dl (31-36); Mean Corpuscular Hemoglobin 32 pg (27-31); Mean Corpuscular Volume 94 fL (80-94); Mean Platelet Volume 9 um3 (7.4-10.4); Red Blood Count 3.96 10^6/ul (4.0-5.4); Red Cell Distribution Width 15 % (10.5-15); White Blood Count 3.4 10^3/ul (3.5-10.8)
[2017-05-24 10:44] LABS: Add Diff/Slide Review? Slide Review Added; Comments Flag Yes
[2017-05-24 11:44] LABS: Urine Bacteria Absent (Absent); Urine Bilirubin Negative (Negative); Urine Glucose Negative (Negative); Urine Nitrite Negative (Negative)
[2017-05-24 12:09] VITALS: BP 125/65
--- NOTE | 2017-05-24 17:36 | DS ---
- Discharge Summary Admission Date: 05/20/17 Discharge Date: 05/24/17 Discharge Diagnosis: 1. Hematuria: improved, likely secondary to hypercoagulable state 2. Diverticulitis: likely cause of elevated INR due to absorption of Coumadin, no significant symptoms and may be incidental, cont. intermittent constipation meds 3. H.Parainfluenzae: completed 3 days of IV abx., though question of clinical relevance 4. Adenocarcinoma: unknown primary, s/p C1 Carbo/Taxol, consult planned @ [place] 5. Rash: likely taxane induced, tx. With Benadryl and dexamethasone, may need dex. with C2 6. A.Fib: currently paced, Coumadin on hold for now 7. DM: stable on PO meds 8. Back pain: chronic and on CT appears to be DJD with disc disease, no evidence for metastatic disease, will go home with PRN narcotics Discharge Medications: 1. Dexamethasone 4 mg as directed 2. Diphenhydramine 25 mg PO q4hrs PRN itching 3. Oxycodone 5 mg PO q4hrs PRN pain 4. Miralax 17 gm PO daily 5. Lactulose 15 mL PO TID PRN constipation 6. Milk of Mag 30 mL PO BID PRN constipation 7. Atorvastatin 80 mg PO qHS 8. Losartan 25 mg PO qAM 9. Aspirin 81 mg PO qAM 10. Furosemide 20 mg PO qAM 11. Glipizide 2.5 mg PO BID 12. Sotalol 0.5 mg PO BID *STOP WARFARIN* Hospital Course: Please see admission note for full H&P, however, Mr. Mcmahon is known to our service due to his recent diagnosis of metastatic adenocarcinoma with unknown primary; he started Carboplatin and Paclitaxel ([id number]) on 05/17. On 05/20 he presented to the ER due to acute onset of abdominal pain with associated hematuria. He has a long history of blood in his urine with unclear source followed by urology. In the ER a CT of the abdomen and pelvis revealed diverticulitis and a chest x-ray reveal possible consolidation. Interestingly he complained of constipation rather than diarrhea and he did not have a fever. His INR however was 4.19. Mr. Mcmahon was admitted to the hospital with broad coverage abx. (Cefepime to cover both GI and pulmonary infection) and his Coumadin was held. A sputum culture from 05/20 grew H.Parainfluenzae. His INR was down to 2.76 the day after admission. By 05/23 his urine was less red and overall he was feeling better therefore the antibiotics were stopped. Throughout his stay his major complaint has been lower back pain. This is chronic though progressive and today the CT was reviewed at length with radiology revealing only DJD and disc disease. Today his counts are stable, his urine continues to clear, and he has had a normal BM. He agrees he is ready for discharge and therefore he will return home off antibiotics and with his anti-coagulation held (to note this was for A.Fib and he has been pace controlled throughout his visit). He has been given a short course of steroids due to complaint of a rash that appears taxane induced. He will follow-up with Dr. Carrillo on 06/05/17 @ [place] office and will keep his consultation at [facility] [place] on 05/31/17. The oncology team will collaborate with Dr. Mancera of general surgery to coordinate a port placement prior to his planned cycle 2 on 06/07/17. Plan of care reviewed at length. >40 min with >50% face to face counseling
== END 2017-05-24 14:19 | disposition home or self-care (01) | DRG 813 ==
LOC: ED 03:40 → MEDTELE 10:19
PROVIDERS: ADMIT Internal Medicine; ATTEND Internal Medicine Hematology & Oncology
DX: D68.32 Hemorrhagic disorder due to extrinsic circulating anticoagulants (principal); J15.6 Pneumonia due to other Gram-negative bacteria; J90 Pleural effusion, not elsewhere classified; I11.0 Hypertensive heart disease with heart failure; C77.9 Secondary and unspecified malignant neoplasm of lymph node, unspecified; I48.0 Paroxysmal atrial fibrillation; I50.9 Heart failure, unspecified; K57.92 Diverticulitis of intestine, part unspecified, without perforation or abscess without bleeding; J44.0 Chronic obstructive pulmonary disease with (acute) lower respiratory infection; R31.9 Hematuria, unspecified; E11.9 Type 2 diabetes mellitus without complications; I25.10 Atherosclerotic heart disease of native coronary artery without angina pectoris; F17.210 Nicotine dependence, cigarettes, uncomplicated; C80.1 Malignant (primary) neoplasm, unspecified; N40.0 Benign prostatic hyperplasia without lower urinary tract symptoms; I25.5 Ischemic cardiomyopathy; E78.5 Hyperlipidemia, unspecified; R79.1 Abnormal coagulation profile; T45.515A Adverse effect of anticoagulants, initial encounter; R05 Cough; G89.29 Other chronic pain; M54.9 Dorsalgia, unspecified; M19.90 Unspecified osteoarthritis, unspecified site; R21 Rash and other nonspecific skin eruption; T45.1X5A Adverse effect of antineoplastic and immunosuppressive drugs, initial encounter; K59.00 Constipation, unspecified; Y92.239 Unspecified place in hospital as the place of occurrence of the external cause; Z79.82 Long term (current) use of aspirin; Z79.84 Long term (current) use of oral hypoglycemic drugs; Y92.9 Unspecified place or not applicable; Z82.49 Family history of ischemic heart disease and other diseases of the circulatory system; Z82.3 Family history of stroke; Z80.3 Family history of malignant neoplasm of breast; Z95.5 Presence of coronary angioplasty implant and graft; Z95.810 Presence of automatic (implantable) cardiac defibrillator; Z87.442 Personal history of urinary calculi; Z80.8 Family history of malignant neoplasm of other organs or systems; Z88.8 Allergy status to other drugs, medicaments and biological substances; Z91.030 Bee allergy status; Z72.89 Other problems related to lifestyle
CPT/HCPCS: 36415; 36592; 71010; 74177; 80048; 80053; 81003; 81015; 83690; 83880; 84484; 85014; 85018; 85025; 85610; 85730; 87040; 87070; 87077; 87205; 93005; 96367; 96375; 96413; 96415; 96417; 99211; 99232; A9270-GY; G0463; J0692; J1100; J1200; J1453; J2270; J2405; J2469; J8540; J9045; J9267; Q9967

== ENCOUNTER 2017-06-11 06:26 | Day surgery (SDC) | payer MEDICARE, BC ==
[~2017-06-11 06:26] MED LIST: Buffered Lidocaine 0.9% SYRIN* 5 ML/SYR SYRINGE INTRADERM ONE
[2017-06-11] MEDS ORDERED: Buffered Lidocaine 0.9% SYRIN* 5 ML/SYR SYRINGE ONE (06:34)
[2017-06-11] MEDS ORDERED: ceFAZolin 2 GM PREMIX (*) 2 GM/50 ML BAG IVPB ONE (06:34)
[2017-06-11] MEDS ORDERED: Lidocaine 1% MPF wEPI 200,000* 30 ML SDV ONE (07:09)
[2017-06-11] MEDS ORDERED: Sotalol TAB* 80 MG PO ONE ×2 (07:30)
[2017-06-11] MEDS ORDERED: fentaNYL* 50 MCG/ML 2 ML VIAL (100 MCG VIAL) ONE (07:55)
[2017-06-11] MEDS ORDERED: Midazolam* 1 MG/ML 2 ML VIAL (2 MG) ONE (07:55)
[2017-06-11] MEDS ORDERED: Naloxone* 0.4 MG/ML 1 ML VIAL IV PRN (08:21)
--- NOTE | 2017-06-11 08:52 | BRIEFOPN ---
Brief Operative Note - Surgery Procedures: Procedures Pre-OP Diagnoses: malignancy of unknown primary Post-op Diagnosis: same Procedure: Insertion of powerport Surgeon: Calderon Asst: none Anethesia: local, MAC Byleelida EBL: minimal IVF: minimal Specimen: none Drains: none 8Fr single lumen power port via R SCV
[2017-06-11 09:28] VITALS: BP 116/87
--- NOTE | 2017-06-11 10:43 | RAD ---
INDICATION: RIGHT chest PowerPort placement. COMPARISON: No relevant prior exams available on the [facility] PACS for comparison. TECHNIQUE: 51 seconds fluoroscopy. FINDINGS: Spot image documents a RIGHT side chest port. The catheter follows the course of the RIGHT brachiocephalic vein however the tip of the catheter is not well visualized on the provided spot image in part due to superimposed pacemaker leads. IMPRESSION: Procedural fluoroscopy. CPT II Codes: 6045F
== END 2017-06-11 09:33 | disposition home or self-care (01) ==
LOC: OR 06:26
PROVIDERS: ATTEND Surgery
DX: C80.1 Malignant (primary) neoplasm, unspecified (principal); I48.0 Paroxysmal atrial fibrillation; Z79.01 Long term (current) use of anticoagulants; E11.9 Type 2 diabetes mellitus without complications; F17.210 Nicotine dependence, cigarettes, uncomplicated; I25.10 Atherosclerotic heart disease of native coronary artery without angina pectoris; I10 Essential (primary) hypertension; E78.5 Hyperlipidemia, unspecified; I49.5 Sick sinus syndrome; Z95.0 Presence of cardiac pacemaker; I34.1 Nonrheumatic mitral (valve) prolapse
CPT/HCPCS: 76000; A9270-GY; C1788; J0690; J1642; J2001; J2250; J3010

== ENCOUNTER 2017-08-15 07:33 | Day surgery (SDC) | payer MEDICARE, BC ==
[~2017-08-15 07:33] MED LIST changes: +DiMENhydriNATE IV* 50 MG/ML VIAL IV PUSH PRN; +Famotidine IV* 10 MG/ML 2 ML (20 mg) IV ONE; +Naloxone* 0.4 MG/ML 1 ML VIAL IV PRN; +fentaNYL* 50 MCG/ML 2 ML VIAL (100 MCG VIAL) IV PRN
[2017-08-15] MEDS ORDERED: Buffered Lidocaine 0.9% SYRIN* 5 ML/SYR SYRINGE ONE (07:56)
[2017-08-15] MEDS ORDERED: Famotidine IV* 10 MG/ML 2 ML (20 mg) ONE (07:56)
[2017-08-15] MEDS ORDERED: Lidocaine 2.5%/Prilocain 2.5%* 5 GM TUBE ONE (08:19)
[2017-08-15] MEDS ORDERED: Lidocaine 4% TOPICAL* 50 ML TOP.SOLN ONE (08:44)
[2017-08-15] MEDS ORDERED: Oxymetazoline 0.05% NASAL SPR* 15 ML BTL ONE (08:44)
[2017-08-15] MEDS ORDERED: fentaNYL* 50 MCG/ML 2 ML VIAL (100 MCG VIAL) ONE (08:56)
[2017-08-15] MEDS ORDERED: Atracurium* 10 MG/ML 10 ML VIAL ONE (08:56)
[2017-08-15] MEDS ORDERED: Midazolam* 1 MG/ML 2 ML VIAL (2 MG) ONE (08:56)
[2017-08-15] MEDS ORDERED: KETAMINE HCL* 50 MG/ML 10 ML VIAL ONE (08:57)
[2017-08-15] MEDS ORDERED: Dexamethasone IV* 4 MG/ML 1 ML (4 MG) ONE (10:06)
[2017-08-15] MEDS ORDERED: Glycopyrrolate IV* 0.2 MG/ML 1 ML VIAL ONE (10:06)
[2017-08-15] MEDS ORDERED: Ondansetron INJ* 2 MG/ML VIAL ONE (10:06)
[2017-08-15] MEDS ORDERED: Neostigmine Methylsulfate* 2 MG/2 ML SYRINGE ONE (10:06)
[2017-08-15] MEDS ORDERED: Propofol* 10 MG/ML 20 ML BTL IV PUSH ONE (10:06)
[2017-08-15] MEDS ORDERED: Phenylephrine INJ* 10 MG/ML 1 ML VIAL (10 MG) ONE (10:06)
[2017-08-15] MEDS ORDERED: Lidocaine 2% PF * 5 ML VIAL ONE (10:06)
[2017-08-15] MEDS ORDERED: Naloxone* 0.4 MG/ML 10 ML VIAL ONE (10:07)
[2017-08-15 11:57] VITALS: BP 110/67
--- NOTE | 2017-08-16 00:34 | OP ---
DATE OF OPERATION: 07/18/17 - [facility] DATE OF : 47 SURGEON: Miguel Ahuja MD ANESTHESIA: General endotracheal anesthesia. PRE-OP DIAGNOSIS: Vocal cord paralysis. POST-OP DIAGNOSIS: Vocal cord paralysis. OPERATIVE PROCEDURE: Microlaryngoscopy with injection of Prolaryn gel implant into the left vocal cord. COMPLICATIONS: None. DISPOSITION: Good. SPECIMEN: None. BLOOD LOSS: None. DESCRIPTION OF PROCEDURE: The patient was taken to the operating room and placed in the supine position on the operating table and general anesthesia was induced, and he was orotracheally intubated, turned and draped for the surgery. MARYSE 2 laryngoscope was inserted and suspended from the suspension system. Microscope was brought in. Left vocal cord was visualized using the Prolaryn injection needle. The lateral aspect of the left vocal cord was injected posterior medial and anterior positions to medialize the vocal cord with a total of 0.7 mL of Prolaryn gel. The vocal cord was anesthetized with cottonoid impregnated with oxymetazoline and 4% lidocaine. The video laryngoscope was removed. The patient tolerated the procedure well, no complications, transferred to the recovery room in stable condition. [id number]/[facility] #: [id number] MTDD
== END 2017-08-15 11:58 | disposition home or self-care (01) ==
LOC: OR 07:33
PROVIDERS: ATTEND Otolaryngology
DX: J38.01 Paralysis of vocal cords and larynx, unilateral (principal); R49.0 Dysphonia; J44.9 Chronic obstructive pulmonary disease, unspecified; C80.1 Malignant (primary) neoplasm, unspecified; C78.1 Secondary malignant neoplasm of mediastinum; I10 Essential (primary) hypertension; Z87.891 Personal history of nicotine dependence; E11.9 Type 2 diabetes mellitus without complications; I25.2 Old myocardial infarction; E78.00 Pure hypercholesterolemia, unspecified
CPT/HCPCS: A9270-GY; J1100; J1642; J2250; J2310; J2405; J2704; J3010

== ENCOUNTER 2017-11-16 12:39 | Day surgery (SDC) | payer MEDICARE, BC ==
[~2017-11-16 12:39] MED LIST changes: -DiMENhydriNATE IV* 50 MG/ML VIAL IV PUSH PRN; -Famotidine IV* 10 MG/ML 2 ML (20 mg) IV ONE; -Naloxone* 0.4 MG/ML 1 ML VIAL IV PRN; -fentaNYL* 50 MCG/ML 2 ML VIAL (100 MCG VIAL) IV PRN
[2017-11-16] MEDS ORDERED: Lidocaine 2.5%/Prilocain 2.5%* 5 GM TUBE ONE (14:22)
[2017-11-16] MEDS ORDERED: Oxymetazoline 0.05% NASAL SPR* 15 ML BTL ONE (17:50)
[2017-11-16] MEDS ORDERED: Lidocaine 1% INJ* 10 MG/ML 30 ML SDV ONE (17:50)
[2017-11-16] MEDS ORDERED: Lidocaine 4% TOPICAL* 50 ML TOP.SOLN ONE (17:51)
[2017-11-16] MEDS ORDERED: Propofol* 10 MG/ML 20 ML BTL IV PUSH ONE (18:09)
[2017-11-16] MEDS ORDERED: fentaNYL* 50 MCG/ML 2 ML VIAL (100 MCG VIAL) ONE (18:09)
[2017-11-16] MEDS ORDERED: Lidocaine 2% PF * 5 ML VIAL ONE (18:09)
[2017-11-16] MEDS ORDERED: oxyCODONE TAB* 5 MG TAB PO PRN (18:31)
[2017-11-16] MEDS ORDERED: Acetaminophen TAB* 325 MG PO PRN (18:31)
[2017-11-16] MEDS ORDERED: Naloxone* 0.4 MG/ML 1 ML VIAL IV PRN (18:31)
[2017-11-16] MEDS ORDERED: Acetaminophen TAB* 325 MG ONE (19:46)
[2017-11-16 20:02] VITALS: BP 128/80
--- NOTE | 2017-11-17 08:47 | OP ---
DATE OF OPERATION: 11/16/17 - [facility] DATE OF : 47. SURGEON: Miguel Ahuja M.D. PRE-OP DIAGNOSIS: Left vocal cord paralysis. POST-OP DIAGNOSIS: Left vocal cord paralysis. OPERATIVE PROCEDURE: Microlaryngoscopy with Prolaryn Plus injection into the left vocal cord with 0.7 mL of Prolaryn Plus. COMPLICATIONS: None. DISPOSITION: Good. SPECIMEN: None. BLOOD LOSS: None. DESCRIPTION OF PROCEDURE: The patient was taken to the operating room, placed in a supine position on the operating table under general anesthesia, and he was orotracheally intubated, turned and draped for surgery. Laryngoscope was inserted and suspended with suspension system. The microscope was brought in. The cottonoid with oxymetazoline and 4% lidocaine was used to anesthetize the vocal cord, and then Prolaryn Plus was injected in three locations posterior, mid anterior for a total of 0.7 mL to medialize the vocal cord. A tooth guard had been placed on the patient's upper teeth to protect it. The laryngoscope and tooth guard were released and removed. The patient tolerated the procedure well, no complications, and transferred to the recovery room in stable condition. [id number]/[facility] #: [id number] MTDBabs
== END 2017-11-16 20:18 | disposition home or self-care (01) ==
LOC: OR 12:39
PROVIDERS: ATTEND Otolaryngology
DX: J38.01 Paralysis of vocal cords and larynx, unilateral (principal); I10 Essential (primary) hypertension; I25.2 Old myocardial infarction; E11.9 Type 2 diabetes mellitus without complications; E78.00 Pure hypercholesterolemia, unspecified; Z87.891 Personal history of nicotine dependence
CPT/HCPCS: A9270-GY; J1642; J2704; J3010

== ENCOUNTER 2017-12-24 13:08 | Inpatient (IN) | payer MEDICARE, BC ==
[2017-12-24] MEDS: NS 0.9% 1000 ML* 1,000 ML IV SCH (16:30)
[2017-12-24] MEDS: traMADol TAB* 50 MG PO PRN ×2 (16:49→21:33)
--- NOTE | 2017-12-24 18:54 | RAD ---
INDICATION: Acute renal failure, right hydronephrosis. COMPARISON: Comparison is made with a prior CT of the abdomen and pelvis from November 13, 2017. TECHNIQUE: Multiple real-time images of the kidneys were obtained. FINDINGS: The kidneys are normal in size and increased in echogenicity suggestive of medical renal disease. The right kidney measured 13.0 x 6.6 x 6.4 cm and the left kidney measured 13.1 x 6.0 x 5.1 cm. There is moderate right hydronephrosis which is present on the prior CT study. No left hydronephrosis is seen. There is a slightly complex cyst arising from the upper pole of the right kidney measuring 2.0 x 2.0 x 1.9 cm. This appears unchanged significantly from a prior renal ultrasound from January 23, 2017. There are simple cyst arising from the upper and lower poles of the left kidney measuring 1.3 x 1.0 x 1.4 and 1.3 x 1.0 x 1.2 cm each. A small left ureterovesical jet is seen. No right ureteral vesicle jet is noted. IMPRESSION: 1. MODERATE LEFT HYDRONEPHROSIS SIMILAR TO THE PRIOR CT STUDY. 2. SLIGHTLY COMPLEX RIGHT RENAL CYST AND SMALL LEFT RENAL SIMPLE CYSTS. 3. FINDINGS SUGGESTIVE OF MEDICAL RENAL DISEASE.
--- NOTE | 2017-12-24 19:23 | RAD ---
INDICATION: Left hip pain. COMPARISON: Comparison is made with a prior CT of the abdomen and pelvis from November 13, 2017. TECHNIQUE: Contiguous axial sections were obtained through the pelvis without intravenous or oral contrast. Images were reconstructed in the coronal and sagittal planes. FINDINGS: The bones are normal alignment. No fracture is seen. There is mild bilateral osteoarthritic change in the hips. There is a 1.2 cm sclerotic lesion within the superior aspect of the right iliac bone which is unchanged from the prior CT study. There are several soft tissue density nodules present in the retroperitoneal region on the right side. There is a nodule posterior to the inferior aspect of the right kidney which has increased in size measuring 1.6 cm and previously measured 0.8 cm in size. There is additional soft tissue density nodules which are located lateral to the right psoas muscle which appears similar to the prior study. There is an enlarged left external iliac chain lymph node measuring 1.0 cm in transverse dimension. The visualized portion of the small bowel and colon appear nondistended. There is a small periumbilical hernia and left inguinal hernia containing fat which appear unchanged. No free intraperitoneal air or fluid is seen. IMPRESSION: 1. RETROPERITONEAL SOFT TISSUE DENSITY MASSES DEMONSTRATING INTERVAL PROGRESSION. 2. SLIGHTLY ENLARGED LEFT EXTERNAL ILIAC CHAIN LYMPH NODE ALSO INCREASED IN SIZE. 3. SCLEROTIC LESION IN THE RIGHT ILIAC BONE, UNCHANGED.
[2017-12-24] MEDS: SOTALOL 120 MG PO SCH (21:30)
[2017-12-24] MEDS: Senna TAB PO SCH (21:31)
[2017-12-24] MEDS: Docusate CAP* 100 MG PO SCH (21:31)
[2017-12-24] MEDS: Heparin VIAL(*) 5000 UNITS/ML VIAL (FIVE THOUSAND) SUBCUT SCH (21:51)
[2017-12-25] MEDS: Acetaminophen TAB* 325 MG PO PRN (02:56)
[2017-12-25] MEDS: Heparin VIAL(*) 5000 UNITS/ML VIAL (FIVE THOUSAND) SUBCUT SCH ×3 (06:17→20:42)
[2017-12-25] MEDS: NS 0.9% 1000 ML* 1,000 ML IV SCH ×3 (07:07→20:17)
[2017-12-25 07:38] LABS: ABS Basophils 0 10^3/ul (0-0.2); ABS Eosinophils 0.2 10^3/ul (0-0.6); ABS Lymphocytes 0.9 10^3/ul (1.0-4.8); ABS Monocytes 0.5 10^3/ul (0-0.8); ABS Nucleated RBC 0 10^3/ul; Eosinophil % 3.4 % (0-6); Hematocrit 24 % (42-52); Hemoglobin 8.4 g/dl (14.0-18.0); Lymphocyte % 15.6 % (25-47); Mean Corpuscular HGB Conc 35 g/dl (31-36); Mean Corpuscular Hemoglobin 34 pg (27-31); Mean Corpuscular Volume 99 fL (80-94); Mean Platelet Volume 7.4 um3 (7.4-10.4); Nucleated Red Blood Cells % 0; Platelet Count 149 10^3/ul (150-450); Red Blood Count 2.47 10^6/ul (4.00-5.40); Red Cell Distribution Width 18 % (10.5-15); White Blood Count 5.6 10^3/ul (3.5-10.8)
[2017-12-25 07:50] LABS: EGFR Non-African American 43.4 (>60)
[2017-12-25] MEDS: Docusate CAP* 100 MG PO SCH ×2 (08:34→20:14)
[2017-12-25] MEDS: Aspirin 81 mg CHEW TAB* 81 MG TAB.CHEW PO SCH (08:34)
[2017-12-25] MEDS: Senna TAB PO SCH ×2 (08:34→20:14)
[2017-12-25] MEDS: SOTALOL 120 MG PO SCH ×2 (10:00→20:14)
[2017-12-25 10:47] LABS: Urine Appearance Clear; Urine Blood 2+ (Negative); Urine Color Yellow; Urine Ketones Negative (Negative); Urine Protein Negative (Negative); Urine Red Blood Cell 3+(>10/hpf) (Absent); Urine Specific Gravity 1.015 (1.010-1.030); Urine Urobilinogen Negative (Negative); Urine White Blood Cell Trace(0-5/hpf) (Absent)
[2017-12-25] MEDS: traMADol TAB* 50 MG PO PRN ×2 (18:34→23:24)
[2017-12-25] MEDS: Ondansetron INJ* 2 MG/ML VIAL IV PRN (18:34)
[2017-12-26] MEDS: NS 0.9% 1000 ML* 1,000 ML IV SCH ×2 (03:14→17:42)
[2017-12-26] MEDS: Heparin VIAL(*) 5000 UNITS/ML VIAL (FIVE THOUSAND) SUBCUT SCH ×3 (05:16→22:03)
[2017-12-26 05:40] LABS: ABS Basophils 0.1 10^3/ul (0-0.2); ABS Eosinophils 0.2 10^3/ul (0-0.6); ABS Lymphocytes 0.8 10^3/ul (1.0-4.8); ABS Monocytes 0.7 10^3/ul (0-0.8); ABS Neutrophils 5.5 10^3/ul (1.5-7.7); ABS Nucleated RBC 0 10^3/ul; Eosinophil % 2.6 % (0-6); Hematocrit 25 % (42-52); Hemoglobin 8.6 g/dl (14.0-18.0); Lymphocyte % 11.5 % (25-47); Mean Corpuscular HGB Conc 34 g/dl (31-36); Mean Corpuscular Hemoglobin 34 pg (27-31); Mean Corpuscular Volume 100 fL (80-94); Mean Platelet Volume 7.8 um3 (7.4-10.4); Nucleated Red Blood Cells % 0; Platelet Count 148 10^3/ul (150-450); Red Blood Count 2.53 10^6/ul (4.00-5.40); Red Cell Distribution Width 18 % (10.5-15); White Blood Count 7.3 10^3/ul (3.5-10.8)
[2017-12-26] MEDS: SOTALOL 120 MG PO SCH ×3 (07:51→22:03)
[2017-12-26] MEDS: traMADol TAB* 50 MG PO PRN ×2 (08:38→22:16)
[2017-12-26] MEDS: Docusate CAP* 100 MG PO SCH ×2 (08:38→22:02)
[2017-12-26] MEDS: Senna TAB PO SCH ×2 (08:38→22:02)
[2017-12-26] MEDS: Aspirin 81 mg CHEW TAB* 81 MG TAB.CHEW PO SCH (08:39)
--- NOTE | 2017-12-26 11:46 | PN ---
Progress Note - Progress Note Date of Service: 12/26/17 SOAP: Subjective: feels worse than when he came in, mainly related to fatigue bc not sleeping well. still with right hip and flank pain. tramadol does seem to be controlling. +anorexia. no BM in 4 days. Objective: Vital Signs Temp Pulse Resp BP Pulse Ox 97.2 F 60 20 113/55 95 12/26/17 07:27 12/26/17 07:51 12/26/17 10:45 12/26/17 07:27 12/26/17 07:51 perr eomi op moist dec bs at bases soft nt decreased BS 1+ le edema sleepy but appropriate and grossly nonfocal Laboratory Results - last 24 hr 12/25/17 12/25/17 12/26/17 16:54 23:24 05:15 WBC 7.3 RBC 2.53 L Hgb 8.6 L Hct 25 L MCV 100 H MCH 34 H MCHC 34 RDW 18 H Plt Count 148 L MPV 7.8 Neut % (Auto) 75.3 Lymph % (Auto) 11.5 L [place] % (Auto) 9.8 H Eos % (Auto) 2.6 Baso % (Auto) 0.8 Absolute Neuts (auto) 5.5 Absolute Lymphs (auto) 0.8 L Absolute Monos (auto) 0.7 Absolute Eos (auto) 0.2 Absolute Basos (auto) 0.1 Absolute Nucleated RBC 0 Nucleated RBC % 0 POC Glucose (mg/dL) 161 H 145 H 12/26/17 07:36 WBC RBC Hgb Hct MCV MCH MCHC RDW Plt Count MPV Neut % (Auto) Lymph % (Auto) [place] % (Auto) Eos % (Auto) Baso % (Auto) Absolute Neuts (auto) Absolute Lymphs (auto) Absolute Monos (auto) Absolute Eos (auto) Absolute Basos (auto) Absolute Nucleated RBC Nucleated RBC % POC Glucose (mg/dL) 135 H Acetaminophen (Tylenol Tab*) 650 mg PO Q4H PRN PRN Reason: FEVER/PAIN Last Admin: 12/25/17 02:56 Dose: 650 mg Aspirin (Aspirin 81 Mg Chew Tab*) 81 mg PO QAM [facility] Last Admin: 12/26/17 08:39 Dose: 81 mg Docusate Sodium (Colace Cap*) 100 mg PO BID [facility] Last Admin: 12/26/17 08:38 Dose: 100 mg Heparin Sodium (Porcine) (Heparin Vial(*)) 5,000 units SUBCUT Q8HR [facility] Last Admin: 12/26/17 05:16 Dose: 5,000 units Sodium Chloride (Ns 0.9% 1000 Ml*) 1,000 mls @ 150 mls/hr IV PER RATE [facility] Last Admin: 12/26/17 03:14 Dose: 150 mls/hr Ondansetron HCl (Zofran Inj*) 4 mg IV Q4H PRN PRN Reason: NAUSEA/VOMITING Last Admin: 12/25/17 18:34 Dose: 4 mg Oxycodone/Acetaminophen (Percocet 5/325 Tab*) 1 tab PO Q4H PRN PRN Reason: Pain Polyethylene Glycol/Electrolytes (Miralax*) 17 gm PO Q12H [facility] Senna (Senokot Tab*) 1 tab PO BID [facility] Last Admin: 12/26/17 08:38 Dose: 1 tab Sotalol HCl (Sotalol (Nf)) 60 mg PO BID [facility] Last Admin: 12/26/17 08:39 Dose: 60 mg Tramadol HCl (Ultram*) 50 mg PO Q6HR PRN PRN Reason: PAIN Last Admin: 12/26/17 08:38 Dose: 50 mg Assessment: 72 yo M w metastatic ALK positive lung cancer admitted with fatigue, dehydration and acute renal failure after recently starting alectinib. He is slowly recovering. He does have significant right hip/flank pain which I wonder if is related to either his right iliac lesion or the growing retroperitoneal adenopathy. I will discuss with Dr. Moreira palliative RT, which can be done concurrently with alectinib. In terms of his renal failure, his hydronephrosis is stable and he is improving with hydration and so I do not feel that it is likely related to this (therefore stenting unlikely to help). Plan: Acute Renal Failure: -IV hydration -hold alectinib for now lung CA/pain: RT consult cont tramadol hold oral chemo med while inpatient constipation: likely ileus. will start miralax and if no improvement image cont sc heparin
[2017-12-26] MEDS: Polyethylene Glycol 3350* 17 GM PACKET PO SCH ×2 (12:42→22:04)
[2017-12-26] MEDS: Acetaminophen TAB* 325 MG PO PRN (14:16)
[2017-12-27] MEDS: NS 0.9% 1000 ML* 1,000 ML IV SCH (00:02)
[2017-12-27] MEDS ORDERED: NS 0.9% 1000 ML* 1,000 ML IV SCH (00:20)
[2017-12-27] MEDS: Ondansetron INJ* 2 MG/ML VIAL IV PRN (03:18)
[2017-12-27] MEDS ORDERED: Furosemide IV* 10 MG/ML 2 ML VIAL (20 MG) IV ONE (03:35)
[2017-12-27] MEDS ORDERED: Furosemide IV* 10 MG/ML 2 ML VIAL (20 MG) ONE (03:42)
[2017-12-27] MEDS: Heparin VIAL(*) 5000 UNITS/ML VIAL (FIVE THOUSAND) SUBCUT SCH ×3 (05:24→22:31)
[2017-12-27 06:08] LABS: EGFR Non-African American 63.3 (>60)
--- NOTE | 2017-12-27 09:49 | PN ---
Progress Note - Progress Note Date of Service: 12/27/17 SOAP: Subjective: feels worse today. very fatigued, but not sleeping at night. got fluid overloaded last night and responded to lasix. dyspneic this am but feels it is because stomach is so full. still no BM. nausea with dry heaves this am. met with Dr. Moreira and still considering RT Objective: Vital Signs Temp Pulse Resp BP Pulse Ox 97.4 F 61 26 101/56 97 12/27/17 07:19 12/27/17 07:19 12/27/17 07:31 12/27/17 07:19 12/27/17 07:19 perr eomi op moist dec bs at bases, no crackles tachypneic distended nontender no BS 1+ LE edema A+Ox 3, nonfocal neurological exam Laboratory Results - last 24 hr 12/26/17 12/26/17 12/27/17 17:45 23:19 05:27 Sodium 134 L Potassium 5.2 H Chloride 103 Carbon Dioxide 29 Anion Gap 2 BUN 28 H Creatinine 1.14 Est GFR ( Amer) 76.6 Est GFR (Non-Af Amer) 63.3 BUN/Creatinine Ratio 24.6 H Glucose 136 H POC Glucose (mg/dL) 165 H 97 Calcium 8.9 12/27/17 05:27 Sodium Potassium Chloride Carbon Dioxide Anion Gap BUN Creatinine Est GFR ( Amer) Est GFR (Non-Af Amer) BUN/Creatinine Ratio Glucose POC Glucose (mg/dL) 151 H Calcium Acetaminophen (Tylenol Tab*) 650 mg PO Q4H PRN PRN Reason: FEVER/PAIN Last Admin: 12/26/17 14:16 Dose: 650 mg Aspirin (Aspirin 81 Mg Chew Tab*) 81 mg PO QAM [facility] Last Admin: 12/26/17 08:39 Dose: 81 mg Docusate Sodium (Colace Cap*) 100 mg PO BID [facility] Last Admin: 12/26/17 22:02 Dose: 100 mg Heparin Sodium (Porcine) (Heparin Vial(*)) 5,000 units SUBCUT Q8HR [facility] Last Admin: 12/27/17 05:24 Dose: 5,000 units Ondansetron HCl (Zofran Inj*) 4 mg IV Q4H PRN PRN Reason: NAUSEA/VOMITING Last Admin: 07/26/18 03:18 Dose: 4 mg Oxycodone/Acetaminophen (Percocet 5/325 Tab*) 1 tab PO Q4H PRN PRN Reason: Pain Polyethylene Glycol/Electrolytes (Miralax*) 17 gm PO Q12H [facility] Last Admin: 12/26/17 22:04 Dose: 17 gm Senna (Senokot Tab*) 1 tab PO BID [facility] Last Admin: 12/26/17 22:02 Dose: 1 tab Sotalol HCl (Sotalol (Nf)) 60 mg PO BID [facility] Last Admin: 12/26/17 22:03 Dose: 60 mg Tramadol HCl (Ultram*) 50 mg PO Q6HR PRN PRN Reason: PAIN Last Admin: 12/26/17 22:16 Dose: 50 mg Assessment: 72 yo M w metastatic ALK positive lung cancer admitted with fatigue, dehydration and acute renal failure after recently starting alectinib. He is slowly recovering by labs but I do now suspect a bowel obstruction. I have ordered stat imaging. If concerning will put in NGT and make NPO. I did discuss with Marty and his that I am concerned that he is not going in the right direction. We talked about hospice if he does not recover from this bowel obstruction and improve functionally. I did have a code status discussion with them, however they were clearly overwhelmed and wished to think abou tit. Plan: Acute Renal Failure: -improved -hold alectinib for now -hold hydration 2/2 overload last night lung CA/pain: RT consult appreciated bone scan pending cont tramadol hold oral chemo med while inpatient ?SBO: imaging today cont sc heparin
[2017-12-27] MEDS: Senna TAB PO SCH ×2 (09:52→20:03)
[2017-12-27] MEDS: Docusate CAP* 100 MG PO SCH ×2 (09:52→20:03)
[2017-12-27] MEDS: Aspirin 81 mg CHEW TAB* 81 MG TAB.CHEW PO SCH (09:53)
[2017-12-27] MEDS: SOTALOL 120 MG PO SCH ×2 (09:53→20:04)
--- NOTE | 2017-12-27 11:11 | RAD ---
HISTORY: bowel obstruction?, Abdominal pain, acute renal failure COMPARISONS: CT dated November 13, 2017 VIEWS: Frontal supine and upright views of the abdomen. FINDINGS: BOWEL: There is a nonobstructive bowel gas pattern. There is a large amount of stool within the colon. CALCULI: There are no abnormal calculi. BONES AND SOFT TISSUES: Degenerative changes are noted . OTHER FINDINGS: There are small bilateral pleural effusions. There is no subphrenic gas. A left-sided pacemaker is noted. IMPRESSION: 1. NONOBSTRUCTIVE BOWEL GAS PATTERN. 2. LARGE AMOUNT OF STOOL THROUGHOUT THE COLON. 3. SMALL BILATERAL PLEURAL EFFUSIONS.
[2017-12-27] MEDS ORDERED: Mineral Oil ENEMA* 1 BOTTLE PR ONE (11:21)
[2017-12-27] MEDS: Polyethylene Glycol 3350* 17 GM PACKET PO SCH ×2 (13:51→22:32)
[2017-12-27] MEDS: oxyCODONE/Acetamin 5/325 MG* TAB PO PRN (13:52)
--- NOTE | 2017-12-27 14:09 | RAD ---
INDICATION: Bone metastasis with hip pain COMPARISON: CT pelvis December 24, 2017; renal sonogram December 24, 2017; CT chest/abdomen/pelvis November 13, 2017 TECHNIQUE: Following the intravenous administration of 20.3 millicuries of technetium 99m HDP, a total body bone scan was performed. Routine complete imaging was not performed because the patient could not tolerate the additional images. FINDINGS: There are no abnormal areas of increased isotopic activity. There are no scintigraphic evidence of osseous metastatic disease. There is asymmetric activity with increased activity in the right. IMPRESSION: LIMITED STUDY. NO SPECIFIC SCINTIGRAPHIC ABNORMALITIES ABOUT THE PELVIS. ASYMMETRIC RIGHT RENAL ACTIVITY CORRESPONDS TO ABNORMALITIES ON THE EARLIER RENAL SONOGRAM. CPT II Codes: 3570F PQRS (Nuc med compare/no prior)
[2017-12-27] MEDS: Acetaminophen TAB* 325 MG PO PRN (22:31)
[2017-12-28] MEDS: Heparin VIAL(*) 5000 UNITS/ML VIAL (FIVE THOUSAND) SUBCUT SCH ×3 (05:07→21:33)
[2017-12-28 05:22] LABS: ABS Basophils 0.1 10^3/ul (0-0.2); ABS Eosinophils 0.1 10^3/ul (0-0.6); ABS Lymphocytes 0.5 10^3/ul (1.0-4.8); ABS Monocytes 0.7 10^3/ul (0-0.8); ABS Neutrophils 5.9 10^3/ul (1.5-7.7); ABS Nucleated RBC 0 10^3/ul; Eosinophil % 0.7 % (0-6); Hematocrit 24 % (42-52); Hemoglobin 8.2 g/dl (14.0-18.0); Lymphocyte % 7.4 % (25-47); Mean Corpuscular HGB Conc 34 g/dl (31-36); Mean Corpuscular Hemoglobin 34 pg (27-31); Mean Corpuscular Volume 101 fL (80-94); Mean Platelet Volume 7.5 um3 (7.4-10.4); Nucleated Red Blood Cells % 0.1; Platelet Count 158 10^3/ul (150-450); Red Blood Count 2.41 10^6/ul (4.00-5.40); Red Cell Distribution Width 17 % (10.5-15); White Blood Count 7.2 10^3/ul (3.5-10.8)
[2017-12-28 05:39] LABS: EGFR Non-African American 60.3 (>60)
[2017-12-28] MEDS: SOTALOL 120 MG PO SCH ×2 (09:35→21:41)
[2017-12-28] MEDS: Docusate CAP* 100 MG PO SCH ×2 (09:36→21:30)
[2017-12-28] MEDS: Aspirin 81 mg CHEW TAB* 81 MG TAB.CHEW PO SCH (09:36)
[2017-12-28] MEDS: Senna TAB PO SCH ×2 (09:36→21:30)
[2017-12-28] MEDS: Acetaminophen TAB* 325 MG PO PRN (09:43)
[2017-12-28] MEDS: Polyethylene Glycol 3350* 17 GM PACKET PO SCH ×2 (10:04→21:30)
--- NOTE | 2017-12-28 16:54 | PN ---
Progress Note - Progress Note Date of Service: 12/28/17 SOAP: Subjective: []Better today but still not well. Had BM and did eat breakfast well, thought day appetite has been less. Denies uncontroled pain but says cannot get comfortable. Shoulder can hurt. Cannot sleep well day or night. Seen by Dr. Moreira and discussed 5 day course of XRT to shoulder. Bone scan done. Acetaminophen (Tylenol Tab*) 650 mg PO Q4H PRN PRN Reason: FEVER/PAIN Last Admin: 12/28/17 09:43 Dose: 650 mg Aspirin (Aspirin 81 Mg Chew Tab*) 81 mg PO QAM [facility] Last Admin: 12/28/17 09:36 Dose: 81 mg Docusate Sodium (Colace Cap*) 100 mg PO BID [facility] Last Admin: 12/28/17 09:36 Dose: 100 mg Heparin Sodium (Porcine) (Heparin Vial(*)) 5,000 units SUBCUT Q8HR [facility] Last Admin: 12/28/17 15:15 Dose: 5,000 units Heparin Sodium (Porcine) (Heparin Flush Port (Ivad)) 5 ml FLUSH DAILY [facility]; Protocol Last Admin: 12/28/17 15:30 Dose: 5 ml Lactulose (Lactulose*) 30 ml PO Q6H [facility] Last Admin: 12/28/17 12:23 Dose: Not Given Ondansetron HCl (Zofran Inj*) 4 mg IV Q4H PRN PRN Reason: NAUSEA/VOMITING Last Admin: 12/27/17 03:18 Dose: 4 mg Oxycodone/Acetaminophen (Percocet 5/325 Tab*) 1 tab PO Q4H PRN PRN Reason: Pain Last Admin: 12/27/17 13:52 Dose: 1 tab Polyethylene Glycol/Electrolytes (Miralax*) 17 gm PO Q12H [facility] Last Admin: 12/28/17 10:04 Dose: Not Given Senna (Senokot Tab*) 1 tab PO BID [facility] Last Admin: 12/28/17 09:36 Dose: 1 tab Sotalol HCl (Sotalol (Nf)) 60 mg PO BID [facility] Last Admin: 12/28/17 09:35 Dose: 60 mg Tramadol HCl (Ultram*) 50 mg PO Q6HR PRN PRN Reason: PAIN Last Admin: 07/25/18 22:16 Dose: 50 mg Objective: [] Vital Signs Temp Pulse Resp BP Pulse Ox 98.2 F 61 20 112/57 95 12/28/17 15:02 12/28/17 15:02 12/28/17 15:02 12/28/17 15:02 12/28/17 15:02 HEENT: pale, no oral lesions L supraclavicular LN some wheezing, crackles RRR S1S2, rate 60 +BS, obese but non tender Ext + edema both sides. CT scan. hydronephrosis may be causing pain. There is slight increase in size of RTP LN but to early to determine effect of alectinib, 2 week gap from last scan to starting therapy and then has been taking pills for only 3 weeks. Assessment: 72 yo M w metastatic ALK positive lung cancer admitted with fatigue, dehydration and acute renal failure after recently starting alectinib. He is better then on admission but is still weak and ill appearing. Had bowl movement yesterday and that helped. Discussed several issues with patient and . It is to early to tell if this therapy will work. Best option for him at this time because he has a corresponding mutation. However, I am worried we may not re- gain QOL he had before and discussed that no therapy is curable, if we cannot improve how he feels will ultimately need to stop therapy. Plan: 1. Acute Renal Failure. Improved with hydration, no more IVF 2. Pain. - Possible XRT to shoulder - Try Oxycontin 10 mg bid, poor reaction to Morphine in past. 3. GI. BM yesterday and better. 4. Disp. Try and go home in am and see how he does, may improve. If home will need him to come in for blood work on Sunday 5. Re-start alectinib tomorrow. 6. Sleeping pill tonight. time with patient and chart: [id number]
[2017-12-28] MEDS ORDERED: Zolpidem TAB* 10 MG PO PRN (16:55)
[2017-12-28 17:51] LABS: Urine Appearance Clear; Urine Blood 2+ (Negative); Urine Color Yellow; Urine Ketones Negative (Negative); Urine Protein Negative (Negative); Urine Red Blood Cell 3+(>10/hpf) (Absent); Urine Specific Gravity 1.014 (1.010-1.030); Urine Urobilinogen Positive (Negative); Urine White Blood Cell Trace(0-5/hpf) (Absent)
[2017-12-28] MEDS: traMADol TAB* 50 MG PO PRN (18:20)
[2017-12-28] MEDS ORDERED: oxyCODONE SR TAB(*) 10 MG TAB.SR PO SCH (21:00)
[2017-12-28] MEDS: oxyCODONE/Acetamin 5/325 MG* TAB PO PRN (21:36)
--- NOTE | 2017-12-29 01:52 | RADMED ---
CC: Dr. Rabago, Medical Oncology; Dr. Marty Moreira * RADIATION ONCOLOGY INPATIENT CONSULTATION NOTE: DATE OF CONSULT: 12/26/17 - ROOM #ICU-05 REFERRING PHYSICIAN: Dr. Rabago. PERFORMANCE STATUS: ECOG 3. DIAGNOSIS: Metastatic adenocarcinoma, AJCC stage IV. HISTORY OF PRESENT ILLNESS: Mr. Mcmahon is a 72-year-old gentleman diagnosed with metastatic adenocarcinoma at fine needle aspiration of the lymph node in the left neck, which was performed on 04/18/17. The tumor is ALK positive, and his PET CT performed 05/09/17 identified relatively widespread sarkis involvement including the mediastinum with presumption of pulmonary origin of this cancer. He received carboplatin and Taxol with improvement and subsequent progression, and recently started alectinib, targeted therapy for ALK positive disease. Over the past week, he developed significant weakness, and also has pain problems which have been significant involving the left hip, right flank, and left neck/shoulder. He was referred for consideration of palliative radiation therapy. PAST MEDICAL HISTORY: Metastatic adenocarcinoma, as in the history of present illness. History of atrial fibrillation, COPD, congestive heart failure, coronary artery disease, diabetes, hyperlipidemia, hypertension, peripheral neuropathy. MEDICATIONS: As per the inpatient record: 1. Tylenol. 2. Aspirin. 3. Colace. 4. Heparin. 5. Lactulose. 6. Zofran. 7. Percocet. 8. MiraLAX. 9. Senokot. 10. Sotalol. 11. Ultram. ALLERGIES: BEE VENOM and MORPHINE, CEFDINIR and TAPE. FAMILY HISTORY: Significant for his mother with breast cancer and his sister with thyroid cancer as well as his father, who had lung cancer. SOCIAL HISTORY: He is accompanied by his , who is quite supportive. He is a smoker and was encouraged with regard to cessation. He drinks alcohol occasionally. REVIEW OF SYSTEMS: As in the history of present illness, otherwise a complete review of systems is obtained from the patient, negative for additional significant findings. PHYSICAL EXAM: Vital Signs: Temperature 96.9, pulse rate 59, respiratory rate 21, oxygen saturation 88% on oxygen via nasal cannula, blood pressure 96/59. In general, he is awake, alert, oriented, somnolent, in no acute distress. Normocephalic, atraumatic. Sclerae are anicteric. Neck: Full range of motion. Palpable mass in the left supraclavicular area, tender to palpation, reproducing his neck and shoulder pain. Lungs with distant breath sounds and scattered rhonchi. Cardiovascular: S1, S2, regular. Abdomen: Soft, mildly tender, with some tenderness around the right flank. Extremities: Mild bilateral lower extremity edema. Tenderness to palpation over the left greater trochanter. PATHOLOGY AND RADIOLOGY: Reviewed, as in the history of present illness. ASSESSMENT AND PLAN: Mr. Mcmahon is a 72-year-old gentleman with metastatic adenocarcinoma admitted with weakness and significant pain problems involving the left neck, right flank, and left hip. I did review recent imaging including CT scan of the chest, abdomen and pelvis and neck and more recent pelvic CT scan. I also reviewed with Radiology. His pain in the neck is attributed to an extensive left supraclavicular lymph node, and would be a potential target for palliative radiation therapy. His right flank pain I associate with obstruction lesion in the right ureter and his hydronephrosis, and with problems with his renal function already, radiation therapy close to the kidney would not be recommended. With regards to the left hip, there is no obvious lesion seen on his recent pelvic CT scan, but CT occult metastasis is a concern, as he does have some point tenderness over the left greater trochanter. When I reviewed with Radiology, a bone scan was suggested, and Dr. Rabago was kind enough to order, which is pending. I reviewed in detail with the patient and his the logistics and rationale for palliative radiation therapy, risks, benefits, and alternatives as well the acute and long- term frequent and uncommon toxicities. I did answer their questions to the best of my ability. I will follow up with them and review results of bone scan. If he were to proceed, I would recommend typically 2000 cGy at 400 cGy per fraction to areas of palliative radiation. Thank you for giving me the opportunity to participate in the care of this very pleasant gentleman. ADDENDUM: Nuclear medicine bone scan is reviewed showing no findings to suggest bony metastatic disease including the left hip, and his pain there seems attributed to degenerative disease. After further discussion, he could consider palliative radiation therapy to the mass in the left neck, but for the time being, we will consider his options and continue with pain management. [id number]/[facility] #: [id number] [facility]
[2017-12-29] MEDS: Heparin VIAL(*) 5000 UNITS/ML VIAL (FIVE THOUSAND) SUBCUT SCH ×3 (05:31→21:57)
[2017-12-29 05:49] LABS: ABS Basophils 0.1 10^3/ul (0-0.2); ABS Eosinophils 0.1 10^3/ul (0-0.6); ABS Lymphocytes 0.5 10^3/ul (1.0-4.8); ABS Monocytes 0.7 10^3/ul (0-0.8); ABS Neutrophils 8.2 10^3/ul (1.5-7.7); ABS Nucleated RBC 0 10^3/ul; Eosinophil % 0.7 % (0-6); Hematocrit 29 % (42-52); Hemoglobin 9.5 g/dl (14.0-18.0); Lymphocyte % 4.9 % (25-47); Mean Corpuscular HGB Conc 33 g/dl (31-36); Mean Corpuscular Hemoglobin 34 pg (27-31); Mean Corpuscular Volume 102 fL (80-94); Mean Platelet Volume 7.1 um3 (7.4-10.4); Nucleated Red Blood Cells % 0.1; Platelet Count 237 10^3/ul (150-450); Red Blood Count 2.78 10^6/ul (4.00-5.40); Red Cell Distribution Width 18 % (10.5-15); White Blood Count 9.5 10^3/ul (3.5-10.8)
[2017-12-29] MEDS ORDERED: Naloxone* 0.4 MG/ML 1 ML VIAL ONE (05:58)
[2017-12-29] MEDS ORDERED: Propofol* 10 MG/ML 20 ML BTL IV PUSH ONE (05:58)
[2017-12-29] MEDS ORDERED: Etomidate* 2 MG/ML 20 ML VIAL (40 MG) ONE (05:58)
[2017-12-29] MEDS ORDERED: Midazolam* 1 MG/ML 10 ML VIAL (10 MG) ONE (05:58)
[2017-12-29 06:02] LABS: EGFR Non-African American 50.8 (>60)
[2017-12-29 06:02] LABS: Hematocrit 28 % (42-52); Hemoglobin 9.5 g/dl (14.0-18.0); Mean Corpuscular HGB Conc 34 g/dl (31-36); Mean Corpuscular Hemoglobin 34 pg (27-31); Mean Corpuscular Volume 102 fL (80-94); Mean Platelet Volume 7.2 um3 (7.4-10.4); Platelet Count 243 10^3/ul (150-450); Red Blood Count 2.76 10^6/ul (4.00-5.40); Red Cell Distribution Width 18 % (10.5-15); White Blood Count 9.7 10^3/ul (3.5-10.8)
[2017-12-29] MEDS ORDERED: Propofol* 100 ML ONE ×2 (06:36→11:34)
[2017-12-29 06:41] LABS: ABS Basophils 0.1 10^3/ul (0-0.2); ABS Eosinophils 0.1 10^3/ul (0-0.6); ABS Lymphocytes 0.5 10^3/ul (1.0-4.8); ABS Monocytes 0.8 10^3/ul (0-0.8); ABS Neutrophils 8.3 10^3/ul (1.5-7.7); ABS Nucleated RBC 0 10^3/ul; Eosinophil % 0.6 % (0-6); Lymphocyte % 5.2 % (25-47); Nucleated Red Blood Cells % 0
[2017-12-29] MEDS ORDERED: methylPREDNISolone 125 MG* 2 ML VIAL IV ONE (07:02)
--- NOTE | 2017-12-29 07:24 | PN ---
Progress Note - Progress Note Date of Service: 12/29/17 SOAP: Subjective: events of this am noted. seen by nursing for blood draw and he by report appeared lethargic but awake and conversant. positioned more upright. On recheck a short interval later noted to be obtunded. see full CAT notes for details. Currently intubated and sedated. Objective: intubated, sedated but still fighting vent using accessory muscles very dec bs left, tight and rhonchorous on right distant hs distended abdomen 1+ LE edema Laboratory Results - last 24 hr 12/28/17 12/28/17 12/28/17 07:30 16:27 16:44 WBC RBC Hgb Hct MCV MCH MCHC RDW Plt Count MPV Neut % (Auto) Lymph % (Auto) [place] % (Auto) Eos % (Auto) Baso % (Auto) Absolute Neuts (auto) Absolute Lymphs (auto) Absolute Monos (auto) Absolute Eos (auto) Absolute Basos (auto) Absolute Nucleated RBC Nucleated RBC % Sodium Potassium Chloride Carbon Dioxide Anion Gap BUN Creatinine Est GFR ( Amer) Est GFR (Non-Af Amer) BUN/Creatinine Ratio Glucose POC Glucose (mg/dL) 122 H 145 H Calcium Total Bilirubin AST ALT Alkaline Phosphatase Total Protein Albumin Globulin Albumin/Globulin Ratio Urine Color Yellow Urine Appearance Clear Urine pH 5.0 Ur Specific [place] 1.014 Urine Protein Negative Urine Ketones Negative Urine Blood 2+ A Urine Nitrate Negative Urine Bilirubin Negative Urine Urobilinogen Positive A Ur Leukocyte Esterase Negative Urine WBC (Auto) Trace(0-5/hpf) Urine RBC (Auto) 3+(>10/hpf) A Urine Bacteria 1+ A Hyaline Casts Present A Urine Glucose Negative Urine Ascorbic Acid * A 12/28/17 12/29/17 12/29/17 23:41 05:30 05:30 WBC 9.5 RBC 2.78 L Hgb 9.5 L Hct 29 L MCV 102 H MCH 34 H MCHC 33 RDW 18 H Plt Count 237 MPV 7.1 L Neut % (Auto) 86.0 H Lymph % (Auto) 4.9 L [place] % (Auto) 7.7 H Eos % (Auto) 0.7 Baso % (Auto) 0.7 Absolute Neuts (auto) 8.2 H Absolute Lymphs (auto) 0.5 L Absolute Monos (auto) 0.7 Absolute Eos (auto) 0.1 Absolute Basos (auto) 0.1 Absolute Nucleated RBC 0 Nucleated RBC % 0.1 Sodium 133 L Potassium 6.3 H* Chloride 96 L Carbon Dioxide 38 H Anion Gap Not Reportable BUN 37 H Creatinine 1.38 H Est GFR ( Amer) 61.5 Est GFR (Non-Af Amer) 50.8 BUN/Creatinine Ratio 26.8 H Glucose 223 H POC Glucose (mg/dL) 161 H Calcium 9.6 Total Bilirubin 0.90 AST 17 ALT 17 Alkaline Phosphatase 124 H Total Protein 6.7 Albumin 3.9 Globulin 2.8 Albumin/Globulin Ratio 1.4 Urine Color Urine Appearance Urine pH Ur Specific [place] Urine Protein Urine Ketones Urine Blood Urine Nitrate Urine Bilirubin Urine Urobilinogen Ur Leukocyte Esterase Urine WBC (Auto) Urine RBC (Auto) Urine Bacteria Hyaline Casts Urine Glucose Urine Ascorbic Acid 12/29/17 05:50 WBC 9.7 RBC 2.76 L Hgb 9.5 L Hct 28 L MCV 102 H MCH 34 H MCHC 34 RDW 18 H Plt Count 243 MPV 7.2 L Neut % (Auto) 85.5 H Lymph % (Auto) 5.2 L [place] % (Auto) 7.9 H Eos % (Auto) 0.6 Baso % (Auto) 0.8 Absolute Neuts (auto) 8.3 H Absolute Lymphs (auto) 0.5 L Absolute Monos (auto) 0.8 Absolute Eos (auto) 0.1 Absolute Basos (auto) 0.1 Absolute Nucleated RBC 0 Nucleated RBC % 0 Sodium Potassium Chloride Carbon Dioxide Anion Gap BUN Creatinine Est GFR ( Amer) Est GFR (Non-Af Amer) BUN/Creatinine Ratio Glucose POC Glucose (mg/dL) Calcium Total Bilirubin AST ALT Alkaline Phosphatase Total Protein Albumin Globulin Albumin/Globulin Ratio Urine Color Urine Appearance Urine pH Ur Specific [place] Urine Protein Urine Ketones Urine Blood Urine Nitrate Urine Bilirubin Urine Urobilinogen Ur Leukocyte Esterase Urine WBC (Auto) Urine RBC (Auto) Urine Bacteria Hyaline Casts Urine Glucose Urine Ascorbic Acid Assessment: 72 yo M w advanced Alk+ lung cancer admitted with fatigue, dehydration and ARF after starting alectinib, who had been improving by numbers, but looking progressively ill over last 48 hours. His respiratory status did improve on after lasix Sunday night and aggressive bowel regimen . In looking at his CXR, his left lung is completely opacified raising the possibility of a mucous plug. I suspect he also "tired out" from several days of increased work of breathing plus the addition of a long acting narcotic. Plan: -will ask Dr. Shahid to take over care while in ICU I did write for solumedrol x 1 and nebulizers, but may require a bronch to assess left lung OG tube ordered and when in place suspect will get kayexalate. Dr. Rutherford will order calcium gluconate for now I discussed at length with the family that the next 24-48 hrs will be very telling. He has had a very poor performance status recently and has an aggressive tumor. I had a similar conversation with them on and they chose to be full code.
[2017-12-29] MEDS ORDERED: Calcium Gluconate INJ* 1 GM in NS 0.9% 50 ML* 50 ML IV ONE (07:26)
--- NOTE | 2017-12-29 07:29 | RAD ---
INDICATION: Intubation. Respiratory distress COMPARISON: June 07, 2017 TECHNIQUE: An AP portable view obtained at 0700 hours is submitted. FINDINGS: Bones/Soft Tissues: There are no acute bony findings. Is no endotracheal tube in satisfactory position 5 cm above the jaclyn Cardiomediastinal: The cardiac silhouette is not adequately evaluated due to airspace disease in left chest. Lungs: There are complete opacification left hemithorax. Right basal infiltrate. Pleura: Bilateral effusions. Other: None IMPRESSION: ENDOTRACHEAL TUBE PROPER POSITION. NEAR COMPLETE OPACIFICATION OF THE LEFT HEMITHORAX CONSISTENT WITH PLEURAL FLUID, INFILTRATE OR ATELECTASIS. MODERATE-SIZED RIGHT SIDED EFFUSION WITH PRESUMED COMPRESSION ATELECTASIS OR INFILTRATE.
--- NOTE | 2017-12-29 07:55 | CONSULT ---
Consult Consult: CAT response called ~0545 Upon arrival, nursing reported Mr Mcmahon, a lung cancer patient started recently on oxycodone, was found to be unresponsive with agonal respirations. He had no response to vigorous sternal rub. Need for intubation was announced 0.6 naloxone given without response. There was difficulty obtaining sedating and paralysing medications and he was initially unable to be ambu-bagged successfully. SaO2 fell below 70% necessitating attempts to intubate via mac blade without meds. An 8.0 tube was able to be placed at the vocal cords but would not advance, same with a 7.0 ET tube via Glyde scope. Ambu-bagging improved with placement of a nasal trumpet and significant jaw thrust. Dr Kane MD ED arrived to assist. Further attempts were held until 20mg etomidate and 100mg succinylcholine were obtained and administered although even without Mr Mcmahon was not resisting. We continued to attempt obtaining an airway unsuccessfully with each attempt aborted when saO2 dropped below 80%. Mr Mcmahon was able to be bagged back to saO2s in the high 80s to low 90s between. After decreasing ET tube size to 6.0 and attempting a boujie assisted intubation without success, a bedside surgical airway kit was opened and anesthesiology was called as they were in house placing an obstetric epidural. Fortunately, Dr Darion MD anesthesiology arrived and was able to place a 7.0 tube with a boujie assist. He described the subglottic region as possibly stenotic or with tumor given the resistance he felt. Propofol for sedation was initiated and transport to ICU made. Dalton Rabago MD oncology & Denny Shahid MD intesivist were apprised of the situation & came to further evaluate and manage. OG was placed to low intermittent suction. Labs returned a K of 6.3 for which 1gm calcium gluconate was given with the plan for kayexalate via OG once the stomach bubble from prolonged ambu-bag respiration is evacuated.
[2017-12-29] MEDS ORDERED: Albuterol/Ipratropium NEB.SOL* Albuterol 2.5 MG/Ipratropium 0.5 MG 3 ML INH SCH (08:00)
[2017-12-29] MEDS ORDERED: Dexamethasone IV* 10 MG in NS 0.9% 50 ML* 50 ML IVPB ONE (08:04)
[2017-12-29] MEDS ORDERED: Midazolam* 1 MG/ML 2 ML VIAL (2 MG) IV ONE (08:04)
[2017-12-29 08:15] LABS: EGFR Non-African American 53.5 (>60)
[2017-12-29] MEDS ORDERED: Sodium Polystyrene ORAL.SOL* 15 GM/60 ML BTL PO ONE (08:22)
[2017-12-29] MEDS ORDERED: Acetylcysteine ORAL SOL* 200 MG/ML VIAL INH PRN (08:45)
[2017-12-29] MEDS ORDERED: Albuterol/Ipratropium NEB.SOL* Albuterol 2.5 MG/Ipratropium 0.5 MG 3 ML INH PRN (09:44)
--- NOTE | 2017-12-29 10:40 | RAD ---
INDICATION: Orogastric tube placement COMPARISON: December 21, 2017 TECHNIQUE: An AP portable view obtained at 1010 hours is submitted. FINDINGS: Bones/Soft Tissues: There are no acute bony findings. There is left-sided cardiac pacemaker. There is an orogastric tube which can be faintly visualized projecting over the left upper quadrant. There is a right-sided central venous catheter in the superior vena cava Cardiomediastinal: The cardiomediastinal silhouette is normal. Lungs: There are small bibasilar infiltrates with bilateral pleural effusions. There is significantly improved aeration in the left chest. Pleura: There are no pleural effusions. Other: None IMPRESSION: OROGASTRIC TUBE PROJECTED OVER LEFT UPPER QUADRANT. IMPROVED AERATION LUNG BASES. PERSISTENT SMALL EFFUSIONS.
[2017-12-29] MEDS: Pantoprazole IV* 40 MG IV SCH (10:56)
[2017-12-29] MEDS: Senna TAB PO SCH (10:56)
[2017-12-29] MEDS: Aspirin 81 mg CHEW TAB* 81 MG TAB.CHEW PO SCH (10:56)
[2017-12-29] MEDS: Chlorhexidine MOUTHWASH 0.12%* 15 ML UDC TOPICAL SCH ×3 (10:56→20:20)
[2017-12-29] MEDS: Polyethylene Glycol 3350* 17 GM PACKET PO SCH (10:58)
[2017-12-29] MEDS: Propofol* 100 ML IV SCH ×2 (11:02→21:57)
[2017-12-29] MEDS: SOTALOL 120 MG PO SCH ×2 (11:12→22:02)
--- NOTE | 2017-12-29 13:57 | PN ---
Date of Service: 12/29/17 Critical Care Services: Patient with lung CA in hospital for dehydration, was found unresponsive and was intubated (with some difficulty) and brought to ICU. Post-intubation CXR showed an airless left lung, so bronchoscopy was performed at bedside. There was no airway obstruction noted during the bronchoscopy, and airways contained only mucoid secretions (which were cleared by bronchoscope). Post-procedure CXR showed aeration of left lung (which likely occured prior to the procedure). Following the bronchoscopy, the propofol was discontinued, but the patient has not regained consciousness (after 2 hours). Vital Signs: Temp Pulse Resp BP SpO2 FiO2 98.2 F 60 22 132/78 98 40 Physical Exam: Gen:Opens eyes to painful stimuli but does not localize. HEENT: ET and OG tubes in place. Pupils small and sluggishly reactive. Lungs: Lungs clear. No wheezes or crackles. Cardiac: Paced rhythm at 60/min Abdomen: Distended Extremities:No cyanosis or edema. Fluid Balance (Past 24 Hours): 12/27/17 12/28/17 12/29/17 06:59 06:59 06:59 Intake Total 6448 340 1240 Output Total 1450 50 180 Balance 4998 290 1060 Intake: IV Fluids 4648 20 NS (0.9%) 4648 20 Oral 0469 054 1480 Tube Feeding Flush Amount Output: Urine 1450 50 180 Saul Other: Estimated Void Medium Medium Date of Last Bowel 12/28/17 Movement # Bowel Movements 0 0 1 # Voids 1 0 2 Labs: 12/29/17 12/29/17 12/29/17 05:30 05:30 05:50 WBC 9.5 9.7 RBC 2.78 L 2.76 L Hgb 9.5 L 9.5 L Hct 29 L 28 L MCV 102 H 102 H MCH 34 H 34 H MCHC 33 34 RDW 18 H 18 H Plt Count 237 243 Potassium 6.3 Chloride 96 Carbon Dioxide 38 BUN 37 Creatinine 1.38 Glucose 223 POC Glucose (mg/dL) Lactic Acid Calcium 9.6 Total Bilirubin 0.90 AST 17 ALT 17 Alkaline Phosphatase 124 Troponin I Total Protein 6.7 Albumin 3.9 12/29/17 12/29/17 12/29/17 07:44 07:49 07:49 ABG pH 7.26 L ABG pCO2 74 ABG pO2 256 ABG HCO3 28.6 ABG O2 Saturation 100.3 H ABG Base Excess 4.7 H Sodium 133 L Potassium 5.6 Chloride 98 L Carbon Dioxide 31 Anion Gap 4 BUN 39 H Creatinine 1.32 H Est GFR ( Amer) 64.7 Est GFR (Non-Af Amer) 53.5 BUN/Creatinine Ratio 29.5 H Glucose 195 H POC Glucose (mg/dL) Lactic Acid 0.4 Calcium 9.4 Total Bilirubin AST ALT Alkaline Phosphatase Troponin I 0.05 H* Note Hyperkalemia and Hypercapnia. Studies: None. 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 The initial event seems to be hypercapnic respiratory failure from retained secretions causing airway obstruction and subsequent atelectasis of the left lung (upper and lower lobes). The etiology of the hyperkalemia is unclear - there is some renal insufficiency, but hyperkalemia is usually a complication of more advanced renal failure. Plan: 1. Keep patient off sedation and on the ventilator. 2. If patient does not regain consciousness, family will have to be advised about end-of-life options. I will inform the oncology service (Dr. Rabago) about the clinical situation at this time. Patient's and one daughter present at bedside, and are aware of the patient 's failure to awaken. Critical Care Time: 60 minutes (not including time spent with family)
[2017-12-29] MEDS: Docusate CAP* 100 MG PO SCH (16:44)
[2017-12-29] MEDS: oxyCODONE/Acetamin 5/325 MG* TAB PO PRN (16:53)
[2017-12-29] MEDS ORDERED: Polyethylene Glycol 3350* 17 GM PACKET NG TUBE SCH (20:32)
[2017-12-29] MEDS ORDERED: fentaNYL* 50 MCG/ML 2 ML VIAL (100 MCG VIAL) ONE (20:47)
[2017-12-29] MEDS: fentaNYL* 50 MCG/ML 2 ML VIAL (100 MCG VIAL) IV PRN (20:54)
[2017-12-29] MEDS: Docusate LIQ* 100 MG/10 ML UDC G TUBE SCH (21:55)
[2017-12-29] MEDS: Senna TAB NG TUBE SCH (21:56)
[2017-12-29] MEDS: Polyethylene Glycol 3350* 17 GM PACKET NG TUBE SCH (21:56)
[2017-12-29] MEDS: Acetaminophen ADULT LIQ* 650 MG/20.3 ML UDC NG TUBE PRN (21:57)
[2017-12-30] MEDS: Chlorhexidine MOUTHWASH 0.12%* 15 ML UDC TOPICAL SCH ×6 (01:00→20:45)
[2017-12-30] MEDS: Propofol* 100 ML IV SCH ×5 (01:03→22:58)
[2017-12-30] MEDS: fentaNYL* 50 MCG/ML 2 ML VIAL (100 MCG VIAL) IV PRN ×2 (01:16→11:16)
--- NOTE | 2017-12-30 02:59 | PRO ---
PROCEDURE NOTE: DATE OF PROCEDURE: 12/29/17 PROCEDURE: Bedside bronchoscopy. INDICATIONS: The patient is a 73-year-old male with a history of lung cancer, who was in the hospital for dehydration and was found unresponsive on the floor and was subsequently intubated and brought to the intensive care unit. Intubation was difficult due to a narrowed opening in the larynx. A chest x-ray postintubation showed complete atelectasis of left lung - bronchoscopy was therefore performed at the bedside. No airway obstruction was noted. There were mucoid secretions on the baugh of the airways, which were cleared by aspiration through the bronchoscope. Mucomyst (diluted in saline) was instilled into the left lung and lower airways to breakup any residual secretions. The patient tolerated the procedure well. OVERALL IMPRESSION: Atelectasis of left lung from retained secretions. Postprocedure chest x-ray shows reinflation of the left lung. [id number] #: [id number] MTDD
[2017-12-30] MEDS: Heparin VIAL(*) 5000 UNITS/ML VIAL (FIVE THOUSAND) SUBCUT SCH ×3 (04:41→21:02)
[2017-12-30 05:33] LABS: ABS Basophils 0 10^3/ul (0-0.2); ABS Eosinophils 0 10^3/ul (0-0.6); ABS Lymphocytes 0.6 10^3/ul (1.0-4.8); ABS Monocytes 0.9 10^3/ul (0-0.8); ABS Neutrophils 7.1 10^3/ul (1.5-7.7); ABS Nucleated RBC 0 10^3/ul; Eosinophil % 0.1 % (0-6); Hematocrit 23 % (42-52); Hemoglobin 8.2 g/dl (14.0-18.0); Lymphocyte % 6.5 % (25-47); Mean Corpuscular HGB Conc 35 g/dl (31-36); Mean Corpuscular Hemoglobin 35 pg (27-31); Mean Corpuscular Volume 98 fL (80-94); Mean Platelet Volume 7.5 um3 (7.4-10.4); Nucleated Red Blood Cells % 0.1; Platelet Count 168 10^3/ul (150-450); Red Blood Count 2.37 10^6/ul (4.00-5.40); Red Cell Distribution Width 18 % (10.5-15); White Blood Count 8.6 10^3/ul (3.5-10.8)
[2017-12-30 06:03] LABS: EGFR Non-African American 61.5 (>60)
--- NOTE | 2017-12-30 07:37 | PN ---
Progress Note - Progress Note Date of Service: 12/30/17 SOAP: Subjective: apparently woke up and became more agitated overnight so back on propofol. copious diarrhea (though after days of bowel regimen and significant obstipation ). low grade fever overnight. Objective: Vital Signs Temp Pulse Resp BP Pulse Ox 99.1 F 63 22 105/64 93 12/30/17 06:00 12/30/17 06:00 12/30/17 06:00 12/30/17 06:00 12/30/17 06:00 intbuated, sedated ET tube in place CTA anteriorly s1 s2 nl softer +bs 1+ LE edema heavily sedated Laboratory Results - last 24 hr 12/29/17 12/29/17 12/29/17 07:44 07:49 07:49 WBC RBC Hgb Hct MCV MCH MCHC RDW Plt Count MPV Neut % (Auto) Lymph % (Auto) Sevier % (Auto) Eos % (Auto) Baso % (Auto) Absolute Neuts (auto) Absolute Lymphs (auto) Absolute Monos (auto) Absolute Eos (auto) Absolute Basos (auto) Absolute Nucleated RBC Nucleated RBC % ABG pH 7.26 L ABG pCO2 74 H* ABG pO2 256 H ABG HCO3 28.6 ABG O2 Saturation 100.3 H ABG Base Excess 4.7 H Sodium 133 L Potassium 5.6 H Chloride 98 L Carbon Dioxide 31 Anion Gap 4 BUN 39 H Creatinine 1.32 H Est GFR ( Amer) 64.7 Est GFR (Non-Af Amer) 53.5 BUN/Creatinine Ratio 29.5 H Glucose 195 H POC Glucose (mg/dL) Lactic Acid 0.4 L Calcium 9.4 Troponin I 0.05 H* 12/29/17 12/30/17 12/30/17 17:26 02:44 05:20 WBC RBC Hgb Hct MCV MCH MCHC RDW Plt Count MPV Neut % (Auto) Lymph % (Auto) Sevier % (Auto) Eos % (Auto) Baso % (Auto) Absolute Neuts (auto) Absolute Lymphs (auto) Absolute Monos (auto) Absolute Eos (auto) Absolute Basos (auto) Absolute Nucleated RBC Nucleated RBC % ABG pH ABG pCO2 ABG pO2 ABG HCO3 ABG O2 Saturation ABG Base Excess Sodium 137 Potassium 3.9 D Chloride 98 L Carbon Dioxide 33 H Anion Gap 6 BUN 38 H Creatinine 1.17 Est GFR ( Amer) 74.4 Est GFR (Non-Af Amer) 61.5 BUN/Creatinine Ratio 32.5 H Glucose 126 H POC Glucose (mg/dL) 164 H 168 H Lactic Acid Calcium 9.2 Troponin I 12/30/17 05:20 WBC 8.6 RBC 2.37 L Hgb 8.2 L Hct 23 L MCV 98 H MCH 35 H MCHC 35 RDW 18 H Plt Count 168 MPV 7.5 Neut % (Auto) 82.3 Lymph % (Auto) 6.5 L Sevier % (Auto) 10.7 H Eos % (Auto) 0.1 Baso % (Auto) 0.4 Absolute Neuts (auto) 7.1 Absolute Lymphs (auto) 0.6 L Absolute Monos (auto) 0.9 H Absolute Eos (auto) 0 Absolute Basos (auto) 0 Absolute Nucleated RBC 0 Nucleated RBC % 0.1 ABG pH ABG pCO2 ABG pO2 ABG HCO3 ABG O2 Saturation ABG Base Excess Sodium Potassium Chloride Carbon Dioxide Anion Gap BUN Creatinine Est GFR ( Amer) Est GFR (Non-Af Amer) BUN/Creatinine Ratio Glucose POC Glucose (mg/dL) Lactic Acid Calcium Troponin I Acetaminophen (Tylenol Adult Liq*) 650 mg NG TUBE Q4H PRN PRN Reason: FEVER/PAIN Last Admin: 12/29/17 21:57 Dose: 650 mg Acetylcysteine (Mucomyst Oral Angela*) 500 mg INH Q1H PRN PRN Reason: FOR RETAINED SECRETIONS Last Admin: 12/29/17 09:15 Dose: 500 mg Albuterol/Ipratropium (Duoneb (Albuterol 2.5 Mg/Ipratropium 0.5 Mg)) 1 neb INH Q4H PRN PRN Reason: SOB/WHEEZING Aspirin (Aspirin 81 Mg Chew Tab*) 81 mg NG TUBE QAM [facility]UAN Chlorhexidine Gluconate (Peridex Mouth Wash 0.12%*) 15 ml TOPICAL Q4H [facility] Last Admin: 12/30/17 04:40 Dose: 15 ml Docusate Sodium (Colace Liq*) 100 mg G TUBE BID [facility] Last Admin: 12/29/17 21:55 Dose: Not Given Fentanyl Citrate (Fentanyl*) 25 mcg IV Q2H PRN PRN Reason: PAIN/DISCOMFORT Last Admin: 12/30/17 01:16 Dose: 25 mcg Heparin Sodium (Porcine) (Heparin Vial(*)) 5,000 units SUBCUT Q8HR [facility] Last Admin: 12/30/17 04:41 Dose: 5,000 units Heparin Sodium (Porcine) (Heparin Flush Port (Ivad)) 5 ml FLUSH DAILY [facility]; Protocol Last Admin: 12/30/17 05:13 Dose: 5 ml Propofol (Diprivan*) 100 mls @ 0 mls/hr IV .(Initial Rate) [facility]UAN; Protocol Last Admin: 12/30/17 04:40 Dose: 23.8 mls/hr Lactulose (Lactulose*) 30 ml NG TUBE Q6H [facility] Last Admin: 12/30/17 02:53 Dose: Not Given Ondansetron HCl (Zofran Inj*) 4 mg IV Q4H PRN PRN Reason: NAUSEA/VOMITING Last Admin: 12/27/17 03:18 Dose: 4 mg Oxycodone/Acetaminophen (Percocet 5/325 Tab*) 1 tab NG TUBE Q4H PRN PRN Reason: Pain Pantoprazole Sodium (Protonix Iv*) 40 mg IV DAILY [facility] Last Admin: 12/29/17 10:56 Dose: 40 mg Polyethylene Glycol/Electrolytes (Miralax*) 17 gm NG TUBE Q12H [facility] Last Admin: 12/29/17 21:56 Dose: Not Given Senna (Senokot Tab*) 1 tab NG TUBE BID [facility] Last Admin: 12/29/17 21:56 Dose: Not Given Sotalol HCl (Sotalol (Nf)) 60 mg PO BID [facility] Last Admin: 12/29/17 22:02 Dose: 60 mg Tramadol HCl (Ultram*) 50 mg NG TUBE Q6HR PRN PRN Reason: PAIN Zolpidem Tartrate (Ambien Tab*) 10 mg NG TUBE BEDTIME PRN PRN Reason: INSOMNIA Assessment: 72 yo M w advanced Alk+ lung cancer now in ICU after respiratory event. He appears to have mucous plugged and is now aerating his lung. Initially he was not responsive off of propofol, however it appears now that he may be waking up. I have discussed this with Dr. Shahid at length, who will discuss with the family when they arrive. If he does improve enough to be extubated I would strongly advise NOT reintubating if he fails because he will likely need a trach and will NOT receive any further chemotherapy. It is already difficult to imagine that he will recover enough to be reinitiated on therapy given his very poor performance status.
[2017-12-30] MEDS: Polyethylene Glycol 3350* 17 GM PACKET NG TUBE SCH ×2 (07:42→20:33)
[2017-12-30] MEDS: Senna TAB NG TUBE SCH ×2 (07:43→20:33)
[2017-12-30] MEDS: SOTALOL 120 MG PO SCH ×2 (07:55→21:02)
[2017-12-30] MEDS: Aspirin 81 mg CHEW TAB* 81 MG TAB.CHEW NG TUBE SCH (07:55)
[2017-12-30] MEDS: Pantoprazole IV* 40 MG IV SCH (07:56)
[2017-12-30] MEDS: Docusate LIQ* 100 MG/10 ML UDC G TUBE SCH (07:56)
--- NOTE | 2017-12-30 09:11 | RAD ---
INDICATION: Respiratory distress. Left-sided atelectasis. COMPARISON: December 21, 2017 TECHNIQUE: An AP portable view obtained at 0850 hours is submitted. FINDINGS: Bones/Soft Tissues: There are no acute bony findings. There is an endotracheal tube is satisfactory position. The orogastric tube projects over the left upper quadrant. There is a right central venous catheter terminating the superior vena cava. There is a left-sided cardiac pacemaker. Cardiomediastinal: The cardiac silhouette is unchanged.. Lungs: There are bibasal infiltrates with pleural effusions without significant change. Pleura: Small bilateral pleural effusions. Other: None IMPRESSION: ENDOTRACHEAL TUBE IN SIZE SATISFACTORY POSITION. BIBASILAR INFILTRATES WITH EFFUSIONS, UNCHANGED
[2017-12-30] MEDS ORDERED: Haloperidol INJ IV/IM* 5 MG/ML AMP IV SLOW PU PRN (09:41)
[2017-12-30] MEDS: methylPREDNISolone SOD 40 MG* 1 ML VIAL IV SCH ×2 (10:10→18:07)
--- NOTE | 2017-12-30 14:43 | PN ---
Date of Service: 12/30/17 Critical Care Services: Patient is now awake and appropriate!! However, attempts to wean from ventilator (x2) have been unsuccessful. Vital Signs: Temp Pulse Resp BP SpO2 FiO2 98.8 F 62 22 114/83 96 35 Physical Exam: Gen:Alert and appropriate (able to write). Lungs: Occasional rhonchi bilaterally. No wheezes or crackles Abdomen: Not distended Extremities: No cyanosis or edema. Fluid Balance (Past 24 Hours): 12/29/17 12/30/17 06:59 06:59 Intake Total 1240 636 Output Total 180 1965 Balance 1060 -1329 Weight 213 lb Intake: IV Fluids 20 NS (0.9%) 20 Medicated IV 346 CC - Propofol/Diprivan 346 Oral 1220 Tube Feeding Flush Amount 150 NG Tube Irrigate Amount 140 Output: NG Tube Drainage Amount 850 Urine 180 Saul 1115 Other: Estimated Void Medium Date of Last Bowel 12/28/17 Movement # Bowel Movements 1 # Voids 2 Labs: 12/29/17 12/30/17 12/30/17 17:26 02:44 05:20 Sodium 137 Potassium 3.9 D Chloride 98 L Carbon Dioxide 33 H Anion Gap 6 BUN 38 H Creatinine 1.17 Est GFR ( Amer) 74.4 Est GFR (Non-Af Amer) 61.5 BUN/Creatinine Ratio 32.5 H Glucose 126 H POC Glucose (mg/dL) 164 H 168 H Calcium 9.2 12/30/17 05:20 WBC 8.6 Hgb 8.2 L Hct 23 L MCV 98 H Plt Count 168 Studies: CXR: Continued expansion of left lung. Nutrition: Tube feedings (started today). Impression: Major problem now is ventilator dependence, which is likely due to respiratory muscle weakness (since lungs are aerated). Plan: Will continue wean attempts. If unable to wean, then Dr. Carrillo and I will speak with family about end-of-life decisions. Critical Care Time: 50 minutes (incuding time needed to assess weaning)
[2017-12-31] MEDS: Chlorhexidine MOUTHWASH 0.12%* 15 ML UDC TOPICAL SCH ×6 (00:38→20:51)
[2017-12-31] MEDS: methylPREDNISolone SOD 40 MG* 1 ML VIAL IV SCH ×3 (02:16→17:58)
[2017-12-31] MEDS ORDERED: Insulin REGULAR(*) 1 UNITS UNIT ONE (02:29)
[2017-12-31] MEDS: Insulin REGULAR(*) 1 UNITS UNIT SUBCUT SCH ×4 (02:29→17:58)
[2017-12-31] MEDS: Propofol* 100 ML IV SCH ×2 (04:16→20:53)
[2017-12-31 05:35] LABS: Hematocrit 22 % (42-52); Hemoglobin 8.1 g/dl (14.0-18.0); Mean Corpuscular HGB Conc 36 g/dl (31-36); Mean Corpuscular Hemoglobin 35 pg (27-31); Mean Corpuscular Volume 97 fL (80-94); Mean Platelet Volume 7.6 um3 (7.4-10.4); Platelet Count 171 10^3/ul (150-450); Red Blood Count 2.29 10^6/ul (4.00-5.40); Red Cell Distribution Width 18 % (10.5-15); White Blood Count 8.4 10^3/ul (3.5-10.8)
[2017-12-31 05:57] LABS: EGFR Non-African American 66.7 (>60)
[2017-12-31] MEDS: Heparin VIAL(*) 5000 UNITS/ML VIAL (FIVE THOUSAND) SUBCUT SCH ×3 (06:06→21:38)
--- NOTE | 2017-12-31 07:57 | RAD ---
INDICATION: Atelectasis left lung. COMPARISON: Comparison is made with a prior study from December 30, 2017. TECHNIQUE: A single portable view of the chest was obtained. FINDINGS: There is a multilead transvenous pacemaker. The heart is moderately enlarged. There is an endotracheal tube which projects over the midline. The catheter tip projects just below level of the clavicular heads. There appears be a nasogastric tube which is only faintly visualized over the midline and not well-defined. There is a power port central venous catheter entering on the right side. The catheter tip projects overlying the region of the superior vena cava and right atrium. There is a small a moderate size right pleural effusion and a small left pleural effusion which appear unchanged. There are small bibasilar infiltrates right greater than left which are unchanged. IMPRESSION: SMALL TO MODERATE SIZE BILATERAL PLEURAL EFFUSIONS AND BIBASILAR INFILTRATES RIGHT GREATER THAN LEFT, UNCHANGED.
[2017-12-31] MEDS: Famotidine SUSP* 40 MG/5 ML ORAL.SYRIN G TUBE SCH (08:24)
[2017-12-31] MEDS: Aspirin 81 mg CHEW TAB* 81 MG TAB.CHEW NG TUBE SCH (08:24)
[2017-12-31] MEDS: SOTALOL 120 MG PO SCH ×2 (08:25→20:51)
[2017-12-31] MEDS: Senna TAB NG TUBE SCH ×2 (08:47→20:33)
[2017-12-31] MEDS: Polyethylene Glycol 3350* 17 GM PACKET NG TUBE SCH ×2 (08:47→20:32)
[2017-12-31] MEDS: fentaNYL* 50 MCG/ML 2 ML VIAL (100 MCG VIAL) IV PRN ×2 (09:18→15:59)
[2017-12-31] MEDS: traMADol TAB* 50 MG NG TUBE PRN (13:07)
--- NOTE | 2017-12-31 14:10 | PN ---
Date of Service: 12/31/17 Critical Care Services: Is alert and oriented, but is unable to be removed from the ventilator. He develops abdominal paradox during a wean, which is an indication of diaphragm weakness. Vital Signs: Temp Pulse Resp BP SpO2 FiO2 98.3 F 60 20 121/72 99 30 Physical Exam: Gen:Alert and oriented. Lungs: Clear Abdomen:Not distended Extremities:No cyanosis or edema. Fluid Balance (Past 24 Hours): 12/29/17 12/30/17 12/31/17 06:59 06:59 06:59 Intake Total 1240 636 494 Output Total 180 1965 945 Balance 1060 1324 -451 Weight 213 lb 209 lb Intake: IV Fluids 20 NS (0.9%) 20 Medicated IV 346 331 CC - Propofol/Diprivan 346 331 Oral 1220 Tube Feeding 133 Tube Feeding Flush Amount 150 30 NG Tube Irrigate Amount 140 Output: NG Tube Drainage Amount 850 Urine 180 Saul 1115 945 Other: Estimated Void Medium Date of Last Bowel 12/28/17 Movement # Bowel Movements 1 # Voids 2 Labs: 12/31/17 05:29 Sodium 137 Potassium 3.7 Chloride 100 L Carbon Dioxide 31 Anion Gap 6 BUN 41 H Creatinine 1.09 Glucose 252 H POC Glucose (mg/dL) Calcium 8.8 12/31/17 05:29 WBC 8.4 Hgb 8.1 L Hct 22 L MCV 97 H Plt Count 171 Studies: CXR: Right-sided pleural effusion Nutrition: Tube feedings with glucerna 1.2 at 55 cc/hr Impression: Ventilator-dependence due to respiratory muscle weakness (which is probably related to the patient's lung CA and poor performance status). Plan: If unable to wean from ventilator, options include tracheostomy for prolonged mechanical ventilation, or removal of ventilatory support with"comfort measures only" care. The latter option seems more reasonable considering that prolonged mechanical vejtilation consititutes "futile care" (i.e., will not improve patient's clinical condition). Critical Care Time: 35 minutes (including time to evaluate a wean attempt)
--- NOTE | 2017-12-31 19:11 | PN ---
Progress Note - Progress Note Date of Service: 12/31/17 SOAP: Subjective: []Patient seen and family meeting with patient, , son and daughter. He is comfortable, no pain. Alert and response to questions Acetaminophen (Tylenol Adult Liq*) 650 mg NG TUBE Q4H PRN PRN Reason: FEVER/PAIN Last Admin: 12/29/17 21:57 Dose: 650 mg Albuterol/Ipratropium (Duoneb (Albuterol 2.5 Mg/Ipratropium 0.5 Mg)) 1 neb INH Q4H PRN PRN Reason: SOB/WHEEZING Aspirin (Aspirin 81 Mg Chew Tab*) 81 mg NG TUBE QAM JUAN Last Admin: 12/31/17 08:24 Dose: 81 mg Chlorhexidine Gluconate (Peridex Mouth Wash 0.12%*) 15 ml TOPICAL Q4H [facility] Last Admin: 12/31/17 14:24 Dose: 15 ml Famotidine (Pepcid Susp*) 20 mg G TUBE DAILY [facility] Last Admin: 12/31/17 08:24 Dose: 20 mg Fentanyl Citrate (Fentanyl*) 25 mcg IV Q2H PRN PRN Reason: PAIN/DISCOMFORT Last Admin: 12/31/17 15:59 Dose: 25 mcg Haloperidol Lactate (Haldol Inj Iv/Im*) 5 mg IV SLOW PU Q6H PRN PRN Reason: AGITATION Last Admin: 12/30/17 10:10 Dose: 5 mg Heparin Sodium (Porcine) (Heparin Vial(*)) 5,000 units SUBCUT Q8HR [facility] Last Admin: 12/31/17 13:07 Dose: 5,000 units Heparin Sodium (Porcine) (Heparin Flush Port (Ivad)) 5 ml FLUSH DAILY [facility]; Protocol Last Admin: 12/31/17 08:25 Dose: 5 ml Propofol (Diprivan*) 100 mls @ 0 mls/hr IV .(Initial Rate) [facility]; Protocol Last Admin: 12/31/17 04:16 Dose: 23.8 mls/hr Insulin Human Regular (Insulin Regular(*)) 0 units SUBCUT Q6HR [facility]; Protocol Last Admin: 12/31/17 17:58 Dose: 2 units Lactulose (Lactulose*) 30 ml NG TUBE Q6H [facility] Last Admin: 12/31/17 13:12 Dose: Not Given Methylprednisolone Sodium Succinate (Solu-Medrol 40 Mg) 40 mg IV Q8H [facility] Last Admin: 12/31/17 17:58 Dose: 40 mg Oxycodone/Acetaminophen (Percocet 5/325 Tab*) 1 tab NG TUBE Q4H PRN PRN Reason: Pain Polyethylene Glycol/Electrolytes (Miralax*) 17 gm NG TUBE Q12H [facility] Last Admin: 12/31/17 08:47 Dose: Not Given Senna (Senokot Tab*) 1 tab NG TUBE BID [facility] Last Admin: 12/31/17 08:47 Dose: Not Given Sotalol HCl (Sotalol (Nf)) 60 mg PO BID [facility] Last Admin: 12/31/17 08:25 Dose: 60 mg Tramadol HCl (Ultram*) 50 mg NG TUBE Q6HR PRN PRN Reason: PAIN Last Admin: 12/31/17 13:07 Dose: 50 mg Zolpidem Tartrate (Ambien Tab*) 10 mg NG TUBE BEDTIME PRN PRN Reason: INSOMNIA Objective: [] Vital Signs Temp Pulse Resp BP Pulse Ox 98.3 F 59 22 126/74 96 12/31/17 08:05 12/31/17 18:30 12/31/17 18:00 12/31/17 18:30 12/31/17 18:30 HEENT - ET tube, no bleeding +BS BL, no wheezing, vent sounds RRR S1S2 +BS, obese, mild distention. Assessment: 72 yo M w metastatic ALK positive lung cancer admitted with fatigue, dehydration and acute renal failure after recently starting alectinib. He has had progressive weakness and poor oral intake over several weeks. Admitted last week for dehydration and failure to thrive. Had been starting to improve slightly, then found unresponsive and intubated. Difficult intubation and CXR on ventilator showed mucus plug with white out of right chest/lung. XR and ventilation improved after bronchoscope. However, he has failure to wean off vent. Evaluation by Dr. Shahid is of respiratory muscle failure and he expects chronic ventilator support. Meeting with patient and family tonight. Discussed that he has advancing cancer and cannot have any additional therapy. He will in one to 6 months from cancer and cancer symptoms will progress over time. His decision is what defines QOL for him. If he continues on the ventilator he will likely need a tracheostomy and continued ventilator support. He will not be able to go home but to a shelter with hospice, a hospice facility that can maintain the vent may or may not be possible. Alternatively, he can withdraw the ventilator and if he fails to breath will give him comfort but re-start respiratory support and he will likely . His response tonight is that he wants to live as long as possible, even if it means being on a ventilator. He does agree to DNR, no escalation of care. Plan: 1. Ventilator tonight. Will discuss with Dr. Shahid trial of weaning after another day or two of tube feeds, addressing what we can to optimize respiratory function and/or tracheostomy. 2. DNR with DIONI filled out tonight. I recommended and he agreed to no escalation of care ie pressors, antibiotics. Will accept vent and current tube feedings. time with family 1 hr today
[2018-01-01] MEDS: Propofol* 100 ML IV SCH ×4 (00:15→23:22)
[2018-01-01] MEDS: Chlorhexidine MOUTHWASH 0.12%* 15 ML UDC TOPICAL SCH ×7 (00:53→22:35)
[2018-01-01] MEDS: Insulin REGULAR(*) 1 UNITS UNIT SUBCUT SCH ×4 (00:53→17:44)
[2018-01-01] MEDS: methylPREDNISolone SOD 40 MG* 1 ML VIAL IV SCH ×3 (02:49→17:44)
[2018-01-01] MEDS: Heparin VIAL(*) 5000 UNITS/ML VIAL (FIVE THOUSAND) SUBCUT SCH ×3 (06:12→22:35)
[2018-01-01] MEDS: Polyethylene Glycol 3350* 17 GM PACKET NG TUBE SCH ×2 (07:50→22:35)
[2018-01-01] MEDS: Senna TAB NG TUBE SCH ×2 (07:51→22:07)
[2018-01-01] MEDS: Famotidine SUSP* 40 MG/5 ML ORAL.SYRIN G TUBE SCH (07:56)
[2018-01-01] MEDS: SOTALOL 120 MG PO SCH ×2 (07:57→22:35)
[2018-01-01] MEDS: Aspirin 81 mg CHEW TAB* 81 MG TAB.CHEW NG TUBE SCH (07:58)
--- NOTE | 2018-01-01 15:06 | PN ---
Date of Service: 01/01/18 Critical Care Services: PATIENT IS CURRENTLY TOLERATING SPONTANEOUS BREATHING THROUGH A t-PIECE, DESPITE AND ARTERIAL PCO2 OF 70 MM HG Vital Signs: Temp Pulse Resp BP SpO2 FiO2 97.5 F 60 30 126/81 92 30 Physical Exam: Gen:aLERT, APPROPRIATE, AND BREATHING COMFORTABLY ON THE t-PIECE Lungs: NO WHEEZING OR CRACKLES Extremities:NO CYANOSIS OR EDEMA Fluid Balance (Past 24 Hours): 12/30/17 12/31/17 01/01/18 06:59 06:59 06:59 Intake Total 948 799 7378.2 Output Total 6888 554 4309 Balance -1329 -451 596.2 Weight 213 lb 209 lb 209 lb Intake: Medicated IV 346 331 279.2 CC - Propofol/Diprivan 346 331 279.2 Oral 0 Tube Feeding 133 1702 Tube Feeding Flush Amount 150 30 NG Tube Irrigate Amount 140 Output: NG Tube Drainage Amount 850 Urine 215 Saul 3236 884 3626 Other: Date of Last Bowel 12/31/17 Movement # Bowel Movements 1 Estimated Stool Amount Medium Labs: 01/01/18 06:01 Patient Temperature ABG pH ABG pH (Temp Correct) ABG pCO2 ABG pCO2 (Temp Corrct ABG pO2 ABG pO2 (Temp Correct ABG HCO3 ABG O2 Saturation ABG Base Excess Respiration Rate O2 Delivery Device Ventilator Type Vent Mode FiO2 Inspiratory Time PEEP Pressure Support Pressure Control EPAP IPAP BiPAP POC Glucose (mg/dL) 184 H 01/01/18 01/01/18 10:55 11:31 ABG pH 7.33 L ABG pCO2 70 H ABG pO2 73 L ABG HCO3 32.1 H ABG O2 Saturation 94.9 L ABG Base Excess 9.3 H O2 Delivery Device t-piece FiO2 40 POC Glucose (mg/dL) 175 H Studies: NONE TODAY Nutrition: TUBE FEEDING WITH GLUCERNA AT 55 CC/HR Impression: SUCCESSFUL WEAN FROM MECHANICAL VENTILATION (DESPITE THE ARTERIAL PCO2 OF 70, WHICH PATIENT IS TOLERATING) Plan: I WILL ATTEMPT EXTUBATION, BUT CONSIDERING THE SEVERE LARYNGEAL STENOSIS ENCOUNTERED ON INTUBATION, I HAVE ASKED THE ENT SERVICE TO BE PRESENT DURING THE EXTUBATION (IN CASE AN EMERGENCY TRACHEOSTOMY IS NEEDED) Critical Care Time: 50 minutes (including time to evaluate weaning from ventilator)
[2018-01-02] MEDS: Insulin REGULAR(*) 1 UNITS UNIT SUBCUT SCH ×4 (03:54→18:15)
[2018-01-02] MEDS: Chlorhexidine MOUTHWASH 0.12%* 15 ML UDC TOPICAL SCH ×5 (03:54→20:12)
[2018-01-02] MEDS: methylPREDNISolone SOD 40 MG* 1 ML VIAL IV SCH ×3 (03:54→18:09)
[2018-01-02] MEDS: Propofol* 100 ML IV SCH ×3 (03:54→22:59)
[2018-01-02] MEDS: Heparin VIAL(*) 5000 UNITS/ML VIAL (FIVE THOUSAND) SUBCUT SCH ×3 (05:40→22:06)
[2018-01-02] MEDS: Famotidine SUSP* 40 MG/5 ML ORAL.SYRIN G TUBE SCH (09:13)
[2018-01-02] MEDS: Aspirin 81 mg CHEW TAB* 81 MG TAB.CHEW NG TUBE SCH (09:13)
[2018-01-02] MEDS: SOTALOL 120 MG PO SCH ×2 (09:14→22:06)
[2018-01-02] MEDS: fentaNYL* 50 MCG/ML 2 ML VIAL (100 MCG VIAL) IV PRN (10:37)
[2018-01-02] MEDS: Senna TAB NG TUBE SCH ×2 (12:14→21:59)
[2018-01-02] MEDS: Polyethylene Glycol 3350* 17 GM PACKET NG TUBE SCH ×2 (12:14→21:58)
--- NOTE | 2018-01-02 14:54 | PN ---
Date of Service: 01/02/18 Critical Care Services: Continues on the ventilator, and had an uneventful evening. Vital Signs: Temp Pulse Resp BP SpO2 FiO2 98.6 F 59 18 146/86 100 40 Physical Exam: Gen: Alert. Seems comfortable. Responses are appropriate Lungs: Occasional rhhonchi. No crackles or wheezes Abdomen: Not distended Extremities: No cyanosis or edema. Fluid Balance (Past 24 Hours): 12/31/17 01/01/18 01/02/18 06:59 06:59 06:59 Intake Total 494 1981.2 1867 Output Total 945 1385 2150 Balance -451 596.2 -283 Weight 209 lb 209 lb 212 lb Intake: Medicated IV 331 279.2 191 CC - Propofol/Diprivan 331 279.2 191 Oral 0 0 Tube Feeding 133 1702 919 Tube Feeding Flush Amount 30 308 NG Tube Irrigate Amount 449 Output: NG Tube Drainage Amount 850 Urine 215 Saul 945 1170 1300 Other: Date of Last Bowel 12/31/1701/01 Movement # Bowel Movements 1 1 Estimated Stool Amount Medium Large Labs: 01/01/18 01/01/18 17:36 23:27 POC Glucose (mg/dL) 191 H 178 H Studies: None today Nutrition: Tube feedings (Glucerna) Impression: Stable on ventilator Plan: Tracheostomy today.
[2018-01-02] MEDS: oxyCODONE/Acetamin 5/325 MG* TAB NG TUBE PRN (17:05)
[2018-01-03] MEDS: Chlorhexidine MOUTHWASH 0.12%* 15 ML UDC TOPICAL SCH ×6 (00:23→20:24)
[2018-01-03] MEDS: Insulin REGULAR(*) 1 UNITS UNIT SUBCUT SCH ×4 (00:28→18:20)
[2018-01-03] MEDS: methylPREDNISolone SOD 40 MG* 1 ML VIAL IV SCH ×3 (02:45→20:42)
[2018-01-03] MEDS: Propofol* 100 ML IV SCH ×4 (02:48→22:38)
[2018-01-03] MEDS: Heparin VIAL(*) 5000 UNITS/ML VIAL (FIVE THOUSAND) SUBCUT SCH (06:23)
--- NOTE | 2018-01-03 08:10 | PN ---
Date of Service: 01/03/18 Critical Care Services: 72M with htn, hld, dm, cad, chf, af s/p ppm, copd, metastatic presumed lung ca admitted to the ICU with respiratory failure. No longer candidate for treatment. For trach today. Vital Signs: Temp Pulse Resp BP SpO2 FiO2 98.8 F 60 18 148/88 96 30 01/03/18 06:00 01/03/18 06:00 01/03/18 06:15 01/03/18 06:00 01/03/18 06:00 01/03 04:00 Physical Exam: Gen: NAD, intubated HEENT - NCAT, EOMI, PERRL, +ETT Neck - no jvd, no thyromegaly CV - s1/s2, no murmur Lungs - CTA, dec bs at bases ABd - soft, nt Ext - no edema Neuro - awake, following commands Fluid Balance (Past 24 Hours): I= O= Net Intake & Output 01/01/18 01/02/18 01/03/18 01/04/18 06:59 06:59 06:59 06:59 Intake Total 1981.2 1867 1065 Output Total 1385 2150 1090 Balance 596.2 -283 -25 Weight 95 kg 96.5 kg 96.3 kg Intake: Medicated IV 279.2 191 249 CC - Propofol/Diprivan 279.2 191 249 Oral 0 0 Tube Feeding 1702 919 746 Tube Feeding Flush Amount 308 70 NG Tube Irrigate Amount 449 Output: NG Tube Drainage Amount 850 Urine 215 Miranda 1170 1300 1090 Other: Date of Last Bowel 12/31/1701/01 Movement # Bowel Movements 1 1 Estimated Stool Amount Medium Large Labs: Laboratory Results - last 24 hr 01/02/18 01/02/18 01/02/18 05:26 12:10 18:07 POC Glucose (mg/dL) 175 H 176 H 158 H 01/03/18 01/03/18 00:21 06:17 POC Glucose (mg/dL) 191 H 165 H Impression: 72M with htn, hld, dm, cad, chf, af s/p ppm, copd, metastatic presumed lung ca admitted to the ICU with respiratory failure. No longer candidate for treatment. For trach today. 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
[2018-01-03] MEDS: Famotidine SUSP* 40 MG/5 ML ORAL.SYRIN G TUBE SCH (08:55)
[2018-01-03] MEDS: oxyCODONE/Acetamin 5/325 MG* TAB NG TUBE PRN ×2 (08:55→15:27)
[2018-01-03] MEDS: Senna TAB NG TUBE SCH ×2 (08:56→21:28)
[2018-01-03] MEDS: Polyethylene Glycol 3350* 17 GM PACKET NG TUBE SCH ×2 (08:56→21:28)
[2018-01-03] MEDS: SOTALOL 120 MG PO SCH ×2 (08:57→22:46)
[2018-01-03] MEDS ORDERED: Buffered Lidocaine 0.9% SYRIN* 5 ML/SYR SYRINGE INTRADERM ONE (15:40)
--- NOTE | 2018-01-03 18:04 | PN ---
Progress Note - Progress Note Date of Service: 01/03/18 SOAP: Subjective: []On ventilator. Frustrated at not having trach done yet. No pain, breathing is comfortable. Acetaminophen (Tylenol Adult Liq*) 650 mg NG TUBE Q4H PRN PRN Reason: FEVER/PAIN Last Admin: 12/29/17 21:57 Dose: 650 mg Albuterol/Ipratropium (Duoneb (Albuterol 2.5 Mg/Ipratropium 0.5 Mg)) 1 neb INH Q4H PRN PRN Reason: SOB/WHEEZING Chlorhexidine Gluconate (Peridex Mouth Wash 0.12%*) 15 ml TOPICAL Q4H [facility] Last Admin: 01/03/18 15:28 Dose: 15 ml Famotidine (Pepcid Susp*) 20 mg G TUBE DAILY [facility] Last Admin: 01/03/18 08:55 Dose: 20 mg Fentanyl Citrate (Fentanyl*) 25 mcg IV Q2H PRN PRN Reason: PAIN/DISCOMFORT Last Admin: 01/02/18 10:37 Dose: 25 mcg Haloperidol Lactate (Haldol Inj Iv/Im*) 5 mg IV SLOW PU Q6H PRN PRN Reason: AGITATION Last Admin: 12/30/17 10:10 Dose: 5 mg Heparin Sodium (Porcine) (Heparin Flush Port (Ivad)) 5 ml FLUSH DAILY [facility]; Protocol Last Admin: 01/03/18 08:57 Dose: 5 ml Propofol (Diprivan*) 100 mls @ 0 mls/hr IV .(Initial Rate) [facility]; Protocol Last Admin: 01/03/18 06:30 Dose: 17.4 mls/hr Lactated Ringer's (Lactated Ringers 1000 Ml Bag*) 1,000 mls @ 125 mls/hr IV PER RATE [facility] Insulin Human Regular (Insulin Regular(*)) 0 units SUBCUT Q6HR [facility]; Protocol Last Admin: 01/03/18 13:48 Dose: 4 units Methylprednisolone Sodium Succinate (Solu-Medrol 40 Mg) 40 mg IV Q12H [facility] Last Admin: 01/03/18 08:57 Dose: 40 mg Oxycodone/Acetaminophen (Percocet 5/325 Tab*) 1 tab NG TUBE Q4H PRN PRN Reason: Pain Last Admin: 01/03/18 15:27 Dose: 1 tab Polyethylene Glycol/Electrolytes (Miralax*) 17 gm NG TUBE Q12H [facility] Last Admin: 01/03/18 08:56 Dose: 17 gm Senna (Senokot Tab*) 1 tab NG TUBE BID [facility] Last Admin: 01/03/18 08:56 Dose: 1 tab Sotalol HCl (Sotalol (Nf)) 60 mg PO BID [facility] Last Admin: 01/03/18 08:57 Dose: 60 mg Tramadol HCl (Ultram*) 50 mg NG TUBE Q6HR PRN PRN Reason: PAIN Last Admin: 12/31/17 13:07 Dose: 50 mg Zolpidem Tartrate (Ambien Tab*) 10 mg NG TUBE BEDTIME PRN PRN Reason: INSOMNIA Objective: [] Vital Signs Temp Pulse Resp BP Pulse Ox 99.1 F 60 18 132/85 97 01/03/18 16:00 01/03/18 16:00 01/03/18 16:00 01/03/18 16:00 01/03/18 16:00 HEENT - ET tube, no bleeding +BS BL, no wheezing, vent sounds RRR S1S2 +BS, obese, mild distention. Assessment: 72 yo M w metastatic ALK positive lung cancer admitted with fatigue, dehydration and acute renal failure after recently starting alectinib. He has had progressive weakness and poor oral intake over several weeks. Admitted last week for dehydration and failure to thrive. Had been starting to improve slightly, then found unresponsive and intubated. Difficult intubation and CXR on ventilator showed mucus plug with white out of right chest/lung. XR and ventilation improved after bronchoscope. However, he has failure to wean off vent. Evaluation by Dr. Shahid is of respiratory muscle failure and he expects chronic ventilator support. Follow up today and met with family. They are anxous to have trach done and have been working to establish options for discahrge. Plan: 1. Discussed prognosis from cancer, on average 3 -4 months. He could live longer then this or could in several weeks. 2. Plan Trachiostomy for tomorrow with Dr. Dee. 3. DNR with [facility] completed 4. Discussed added benefit of hospice regardless of care setting.
[2018-01-03] MEDS: fentaNYL* 50 MCG/ML 2 ML VIAL (100 MCG VIAL) IV PRN (20:39)
[2018-01-04] MEDS: Chlorhexidine MOUTHWASH 0.12%* 15 ML UDC TOPICAL SCH ×6 (00:19→19:43)
[2018-01-04] MEDS: Insulin REGULAR(*) 1 UNITS UNIT SUBCUT SCH ×4 (00:26→16:53)
[2018-01-04] MEDS: Propofol* 100 ML IV SCH (02:34)
[2018-01-04 06:12] LABS: EGFR Non-African American 72.8 (>60)
[2018-01-04 06:28] LABS: ABS Basophils 0 10^3/ul (0-0.2); ABS Eosinophils 0 10^3/ul (0-0.6); ABS Lymphocytes 0.3 10^3/ul (1.0-4.8); ABS Monocytes 0.9 10^3/ul (0-0.8); ABS Neutrophils 8.1 10^3/ul (1.5-7.7); ABS Nucleated RBC 0 10^3/ul; Eosinophil % 0.4 % (0-6); Lymphocyte % 3.7 % (25-47); Nucleated Red Blood Cells % 0.1
--- NOTE | 2018-01-04 07:31 | RAD ---
HISTORY: OG tube placement COMPARISONS: E 2018 VIEWS: 1: frontal portable view of the chest at 8:01 PM FINDINGS: LINES AND TUBES: An endotracheal tube is noted with the tip overlying the trachea between the clavicles and the jaclyn. A gastric tube is noted, with the tip in the left upper quadrant in a prepyloric position.. The right-sided chest port is noted with the tip overlying the superior vena cava. A left-sided AICD pacemaker is noted. CARDIOMEDIASTINAL SILHOUETTE: The cardiomediastinal silhouette is stable. PLEURA: There is blunting of the costophrenic angles bilaterally. LUNG PARENCHYMA: There is patchy alveolar opacification lung bases bilaterally. ABDOMEN: The upper abdomen is clear. There is no subphrenic gas. BONES AND SOFT TISSUES: No bone or soft tissue abnormalities are noted. IMPRESSION: 1. LINES AND TUBES ABOVE. 2. SMALL BILATERAL PLEURAL EFFUSIONS WITH BIBASILAR ATELECTASIS VERSUS CONSOLIDATION
[2018-01-04] MEDS: Senna TAB NG TUBE SCH ×2 (07:41→20:10)
[2018-01-04] MEDS: SOTALOL 120 MG PO SCH ×2 (07:41→20:10)
[2018-01-04] MEDS: Polyethylene Glycol 3350* 17 GM PACKET NG TUBE SCH ×2 (07:41→20:10)
[2018-01-04] MEDS: Famotidine SUSP* 40 MG/5 ML ORAL.SYRIN G TUBE SCH (07:41)
[2018-01-04] MEDS: methylPREDNISolone SOD 40 MG* 1 ML VIAL IV SCH (07:41)
[2018-01-04] MEDS: oxyCODONE/Acetamin 5/325 MG* TAB NG TUBE PRN (07:42)
[2018-01-04] MEDS: fentaNYL* 50 MCG/ML 2 ML VIAL (100 MCG VIAL) IV PRN ×4 (09:21→19:42)
[2018-01-04] MEDS ORDERED: Lidocaine 2.5%/Prilocain 2.5%* 5 GM TUBE TOPICAL ONE (11:11)
--- NOTE | 2018-01-04 11:16 | PN ---
Date of Service: 01/04/18 Critical Care Services: 72M with htn, hld, dm, cad, chf, af s/p ppm, copd, metastatic presumed lung ca admitted to the ICU with respiratory failure. No longer candidate for treatment. For trach today. 01/04: unable to have trach yesterday. Plan for trach today. Vital Signs: Temp Pulse Resp BP SpO2 FiO2 98.2 F 60 18 147/86 96 30 01/04/18 10:00 01/04/18 10:01/04/18 10:01/04/18 10:01/04/18 10:01/04 08:00 Physical Exam: Gen: NAD, intubated HEENT - NCAT, EOMI, PERRL, +ETT Neck - no jvd, no thyromegaly CV - s1/s2, no murmur Lungs - CTA, dec bs at bases ABd - soft, nt Ext - no edema Neuro - awake, following commands Fluid Balance (Past 24 Hours): I= O= Net Intake & Output 01/02/18 01/03/18 01/04/18 01/05/18 06:59 06:59 06:59 06:59 Intake Total 1867 1065 1565 200 Output Total 2150 1090 1850 295 Balance -283 -25 -285 -95 Weight 96.5 kg 96.3 kg 93.5 kg Intake: Medicated IV 191 249 217 CC - Propofol/Diprivan 191 249 217 Oral 0 Tube Feeding 971 010 3745 Tube Feeding Flush Amount 308 70 100 NG Tube Irrigate Amount 449 200 Output: NG Tube Drainage Amount 850 Urine 0 Miranda 1300 1090 1850 295 Other: Date of Last Bowel 01/01 Movement # Bowel Movements 1 Estimated Stool Amount Large Labs: Laboratory Results - last 24 hr 01/03/18 01/03/18 01/04/18 12:50 18:08 00:12 Sodium Potassium Chloride Carbon Dioxide Anion Gap BUN Creatinine Est GFR ( Amer) Est GFR (Non-Af Amer) BUN/Creatinine Ratio Glucose POC Glucose (mg/dL) 208 H 185 H 172 H Calcium Phosphorus Magnesium 01/04/18 05:00 Sodium 140 Potassium 4.2 Chloride 101 Carbon Dioxide 31 Anion Gap 8 BUN 52 H Creatinine 1.01 Est GFR ( Amer) 88.1 Est GFR (Non-Af Amer) 72.8 BUN/Creatinine Ratio 51.5 H Glucose 171 H POC Glucose (mg/dL) Calcium 9.4 Phosphorus 3.5 Magnesium 2.2 Impression: 72M with htn, hld, dm, cad, chf, af s/p ppm, copd, metastatic presumed lung ca admitted to the ICU with respiratory failure. No longer candidate for treatment. For trach today. 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
[2018-01-04 14:24] LABS: Hematocrit 27 % (42-52); Hemoglobin 9.1 g/dl (14.0-18.0); Mean Corpuscular HGB Conc 34 g/dl (31-36); Mean Corpuscular Hemoglobin 34 pg (27-31); Mean Corpuscular Volume 100 fL (80-94); Mean Platelet Volume 8.8 um3 (7.4-10.4); Platelet Count 210 10^3/ul (150-450); Red Blood Count 2.64 10^6/ul (4.00-5.40); Red Cell Distribution Width 18 % (10.5-15)
[2018-01-04] MEDS ORDERED: Dexmedetomidine* 200 MCG/2 ML 2 ML VIAL ONE (14:43)
[2018-01-04] MEDS ORDERED: Succinylcholine* 20 MG/ML 10 ML VIAL ONE (14:46)
[2018-01-04] MEDS ORDERED: fentaNYL* 50 MCG/ML 2 ML VIAL (100 MCG VIAL) ONE (14:47)
[2018-01-04] MEDS ORDERED: Propofol* 10 MG/ML 20 ML BTL IV PUSH ONE (14:48)
[2018-01-04] MEDS ORDERED: Lidocain 1% EPI 1:100,000 * 30 ML MDV ONE (15:39)
[2018-01-04] MEDS ORDERED: Ondansetron ODT TAB* 4 MG PO PRN (16:36)
[2018-01-04] MEDS ORDERED: Naloxone* 0.4 MG/ML 1 ML VIAL IV PRN (16:36)
[2018-01-04] MEDS ORDERED: fentaNYL* 50 MCG/ML 2 ML VIAL (100 MCG VIAL) IV PRN (16:36)
[2018-01-04] MEDS ORDERED: fentaNYL* 50 MCG/ML 2 ML VIAL (100 MCG VIAL) IV SLOW PU ONE (21:14)
[2018-01-05] MEDS ORDERED: fentaNYL* 50 MCG/ML 2 ML VIAL (100 MCG VIAL) IV SLOW PU ONE (00:36)
[2018-01-05] MEDS ORDERED: fentaNYL* 50 MCG/ML 2 ML VIAL (100 MCG VIAL) ONE ×2 (00:38→09:08)
[2018-01-05] MEDS: Chlorhexidine MOUTHWASH 0.12%* 15 ML UDC TOPICAL SCH ×6 (00:41→20:13)
[2018-01-05] MEDS: Insulin REGULAR(*) 1 UNITS UNIT SUBCUT SCH ×4 (00:47→18:01)
[2018-01-05] MEDS: fentaNYL* 50 MCG/ML 2 ML VIAL (100 MCG VIAL) IV PRN ×5 (02:41→17:19)
--- NOTE | 2018-01-05 03:22 | OP ---
DATE OF OPERATION: 01/04/18 - ROOM #ICU-05 DATE OF : 47 SURGEON: Pedro Dee MD OYSTER WORKER: Miguel Ahuja MD ANESTHESIA: Local MAC. PRE-OP DIAGNOSIS: Ventilator dependent respiratory failure. POST-OP DIAGNOSIS: Ventilator dependent respiratory failure. OPERATIVE PROCEDURE: Tracheostomy. DESCRIPTION OF PROCEDURE: The patient was brought to the operating room from the ICU on the ICU bed. Preoperative verification was performed. The anterior neck was cleansed with alcohol. The intended incision site was marked and approximately 6 cc of 1% lidocaine with epinephrine were infiltrated into the subcutaneous soft tissue overlying the trachea. The patient was then prepped with Betadine, draped in sterile fashion and again, a time-out was performed. Sedation was titrated by the anesthesiologist and the procedure was begun. A 15 blade was used to incise the skin. Subcutaneous fat was then divided with a Bovie cautery. The strap muscles were divided vertically along the median raphe and retracted laterally to expose the pretracheal fat. This was then divided with a Bovie down to the level of the trachea and retracted laterally to give wide exposure of the trachea. There was minimal bleeding during these maneuvers. At this point, the FiO2 was turned down to 30% from 100%. The endotracheal tube was deflated, advanced and then reinflated. An incision was made between the second and third tracheal rings. The vein retractor was placed in to retract the second tracheal ring. A Patel scissor was then used to cut the third tracheal ring on each side to allow for a small flap. The trach community resource officer was placed to enlarge the tracheostomy and the trach tube was then slowly with-drawn by the anesthesiologist. The airway was suctioned. A #8 cuffed Shiley was then placed into the tracheostomy. Cuff was inflated. The circuit was placed and good end tidal CO2 was confirmed. The oral endotracheal tube and the orogastric tube were then removed. The trach was then stitched into position and canvas ties were applied as well. Attempts were made to pass an NG tube, although these were unsuccessful and the tube repeatedly came out of the patient's mouth and so, further attempts were aborted and deferred to the ICU team. The patient was then transferred back to the ICU in stable condition. [id number]/[facility] #: [id number] [facility]ITAL[facility]
--- NOTE | 2018-01-05 07:56 | PN ---
Date of Service: 01/05/18 Critical Care Services: 72M with htn, hld, dm, cad, chf, af s/p ppm, copd, metastatic presumed lung ca admitted to the ICU with respiratory failure. No longer candidate for treatment. For trach today. 01/04: unable to have trach yesterday. Plan for trach today. 01/05: s/p trach yesterday. tolerated procedure well. Vital Signs: Temp Pulse Resp BP SpO2 FiO2 99.1 F 60 19 121/62 97 30 01/05/18 06:31 01/05/18 07:20 01/05/18 07:20 01/05/18 06:31 01/05/18 07:20 01/05 07:40 Physical Exam: Gen: NAD, HEENT - NCAT, EOMI, PERRL Neck - no jvd, +trach CV - s1/s2, no murmur Lungs - CTA, dec bs at bases ABd - soft, nt Ext - no edema Neuro - awake, following commands Fluid Balance (Past 24 Hours): I= O= Net Intake & Output 01/03/18 01/04/18 01/05/18 01/06/18 06:59 06:59 06:59 06:59 Intake Total 1065 1565 2712 Output Total 1090 1850 1994 Balance -25 -285 717 Weight 96.3 kg 93.5 kg 94.7 kg Intake: IV Fluids 2512 LR 2512 Medicated IV 249 217 CC - Propofol/Diprivan 249 217 Oral 0 Tube Feeding 746 1248 Tube Feeding Flush Amount 70 100 NG Tube Irrigate Amount 200 Output: Urine 0 Miranda 1090 1850 1994 Labs: Laboratory Results - last 24 hr 01/04/18 01/04/18 01/04/18 05:00 12:16 16:49 WBC 9.0 RBC 2.64 L Hgb 9.1 L Hct 27 L MCV 100 H MCH 34 H MCHC 34 RDW 18 H Plt Count 210 MPV 8.8 Neut % (Auto) 86.5 H Lymph % (Auto) 3.[address] % (Auto) 9.2 H Eos % (Auto) 0.4 Baso % (Auto) 0.2 Absolute Neuts (auto) 8.1 H Absolute Lymphs (auto) 0.3 L Absolute Monos (auto) 0.9 H Absolute Eos (auto) 0 Absolute Basos (auto) 0 Absolute Nucleated RBC 0 Nucleated RBC % 0.1 POC Glucose (mg/dL) 167 H 182 H 01/05/18 00:46 WBC RBC Hgb Hct MCV MCH MCHC RDW Plt Count MPV Neut % (Auto) Lymph % (Auto) Lane % (Auto) Eos % (Auto) Baso % (Auto) Absolute Neuts (auto) Absolute Lymphs (auto) Absolute Monos (auto) Absolute Eos (auto) Absolute Basos (auto) Absolute Nucleated RBC Nucleated RBC % POC Glucose (mg/dL) 102 H Impression: 72M with htn, hld, dm, cad, chf, af s/p ppm, copd, metastatic presumed lung ca admitted to the ICU with respiratory failure. No longer candidate for treatment. s/p trach. 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
[2018-01-05] MEDS ORDERED: methylPREDNISolone SOD 40 MG* 1 ML VIAL IV SCH (09:00)
[2018-01-05] MEDS: Senna TAB NG TUBE SCH ×2 (09:12→20:02)
[2018-01-05] MEDS: Polyethylene Glycol 3350* 17 GM PACKET NG TUBE SCH ×2 (09:12→20:01)
[2018-01-05] MEDS: Enoxaparin(*) 40 MG/0.4 ML SYR SUBCUT SCH (09:27)
--- NOTE | 2018-01-05 09:57 | PN ---
Progress Note - Progress Note Date of Service: 01/05/18 SOAP: Subjective: []Feels better w/o ET tube. Back pain. Could not sleep last night. Not eating until speech evaluation. Breathing is fine. No voce. Acetaminophen (Tylenol Adult Liq*) 650 mg NG TUBE Q4H PRN PRN Reason: FEVER/PAIN Last Admin: 12/29/17 21:57 Dose: 650 mg Albuterol/Ipratropium (Duoneb (Albuterol 2.5 Mg/Ipratropium 0.5 Mg)) 1 neb INH Q4H PRN PRN Reason: SOB/WHEEZING Last Admin: 01/04/18 15:19 Dose: 1 neb Chlorhexidine Gluconate (Peridex Mouth Wash 0.12%*) 15 ml TOPICAL Q4H [facility] Last Admin: 01/05/18 09:11 Dose: 15 ml Enoxaparin Sodium (Lovenox(*)) 40 mg SUBCUT Q24H [facility] Last Admin: 01/05/18 09:27 Dose: 40 mg Famotidine (Pepcid Susp*) 20 mg G TUBE DAILY [facility] Last Admin: 01/04/18 07:41 Dose: 20 mg Fentanyl Citrate (Fentanyl*) 50 mcg IV Q2H PRN PRN Reason: PAIN/DISCOMFORT Last Admin: 01/05/18 09:11 Dose: 50 mcg Heparin Sodium (Porcine) (Heparin Flush Port (Ivad)) 5 ml FLUSH DAILY [facility]; Protocol Last Admin: 01/05/18 09:12 Dose: Not Given Propofol (Diprivan*) 100 mls @ 0 mls/hr IV .(Initial Rate) [facility]; Protocol Last Admin: 01/04/18 02:34 Dose: 23.1 mls/hr Lactated Ringer's (Lactated Ringers 1000 Ml Bag*) 1,000 mls @ 125 mls/hr IV PER RATE [facility] Last Admin: 01/05/18 09:31 Dose: 125 mls/hr Insulin Human Regular (Insulin Regular(*)) 0 units SUBCUT Q6HR [facility]; Protocol Last Admin: 01/05/18 05:45 Dose: Not Given Methylprednisolone Sodium Succinate (Solu-Medrol 40 Mg) 20 mg IV DAILY [facility] Oxycodone/Acetaminophen (Percocet 5/325 Tab*) 1 tab NG TUBE Q4H PRN PRN Reason: Pain Last Admin: 01/04/18 07:42 Dose: 1 tab Polyethylene Glycol/Electrolytes (Miralax*) 17 gm NG TUBE Q12H [facility] Last Admin: 01/05/18 09:12 Dose: Not Given Senna (Senokot Tab*) 1 tab NG TUBE BID [facility] Last Admin: 01/05/18 09:12 Dose: Not Given Sotalol HCl (Sotalol (Nf)) 60 mg PO BID [facility] Last Admin: 01/04/18 20:10 Dose: Not Given Tramadol HCl (Ultram*) 50 mg NG TUBE Q6HR PRN PRN Reason: PAIN Last Admin: 12/31/17 13:07 Dose: 50 mg Zolpidem Tartrate (Ambien Tab*) 10 mg NG TUBE BEDTIME PRN PRN Reason: INSOMNIA Objective: [] Vital Signs Temp Pulse Resp BP Pulse Ox 99.3 F 61 18 126/70 95 01/05/18 07:30 01/05/18 09:00 01/05/18 09:48 01/05/18 07:30 01/05/18 09:00 HEENT - Tach, mild bleeding. +BS BL, no wheezing, vent sounds RRR S1S2 +BS, obese, mild distention. Assessment: 72 yo M w metastatic ALK positive lung cancer admitted with fatigue, dehydration and acute renal failure after recently starting alectinib. He has had progressive weakness and poor oral intake over several weeks. Admitted last week for dehydration and failure to thrive. Had been starting to improve slightly, then found unresponsive and intubated. Failed weaning trials and now with tracheotomy. Plan: 1. Cancer. Off therapy, prognosis poor, months. - He is DNR - Disp pending vent management, hospice on discharge. - Family and patient aware. 2. Resp. Trachiostomy and will continue to try and decrease vent support. 3. GI. NPO at this time. No clear reason why he should not be able to eat. Swallow eval pending. May have NGT in meantime. Low appetite has been long standing problem. Discussed with and son but few options to increase appetite. . 4. Pain. Fentanly patch 50 mcg, continue prn pain medication.
[2018-01-05] MEDS: fentaNYL PATCH 50 MCG/HR TRANSDERM SCH (11:14)
--- NOTE | 2018-01-05 11:43 | RAD ---
Indication: Check feeding tube placement. Single frontal view of the chest performed at 1122 hours was reviewed. Comparison is made with previous exam dated January 03, 2018. Feeding tube tip appears to be within the stomach. Bilateral pleural effusions are noted with bibasilar atelectasis. Tracheostomy tube and pacemaker leads are in place. IMPRESSION: FEEDING TUBE APPEARS TO BE BELOW THE DIAPHRAGM PRESUMABLY WITHIN THE STOMACH.
[2018-01-05] MEDS: Famotidine SUSP* 40 MG/5 ML ORAL.SYRIN G TUBE SCH (11:53)
[2018-01-05] MEDS: SOTALOL 120 MG PO SCH ×2 (11:55→20:05)
[2018-01-05] MEDS: fentaNYL Patch Check Q Shift 1 NOTE FOLLOW UP SCH (19:08)
[2018-01-05] MEDS: Zolpidem TAB* 10 MG NG TUBE PRN (20:05)
[2018-01-05] MEDS: traMADol TAB* 50 MG NG TUBE PRN (22:35)
[2018-01-06] MEDS: Chlorhexidine MOUTHWASH 0.12%* 15 ML UDC TOPICAL SCH ×6 (01:00→20:48)
[2018-01-06] MEDS: fentaNYL* 50 MCG/ML 2 ML VIAL (100 MCG VIAL) IV PRN ×2 (02:38→20:07)
[2018-01-06] MEDS: Insulin REGULAR(*) 1 UNITS UNIT SUBCUT SCH ×4 (02:42→18:27)
[2018-01-06] MEDS: fentaNYL Patch Check Q Shift 1 NOTE FOLLOW UP SCH ×2 (07:03→18:56)
--- NOTE | 2018-01-06 08:51 | PN ---
Date of Service: 01/06/18 Critical Care Services: 72M with htn, hld, dm, cad, chf, af s/p ppm, copd, metastatic presumed lung ca admitted to the ICU with respiratory failure. No longer candidate for treatment. For trach today. 01/04: unable to have trach yesterday. Plan for trach today. 01/05: s/p trach yesterday. tolerated procedure well. 01/06: ngt placed. weaning vent. Vital Signs: Temp Pulse Resp BP SpO2 FiO2 98.5 F 61 11 106/68 99 30 01/06/18 07:38 01/06/18 08:00 01/06/18 08:00 01/06/18 07:01 01/06/18 08:00 01/06 07:40 Physical Exam: Gen: NAD, HEENT - NCAT, EOMI, PERRL Neck - no jvd, +trach CV - s1/s2, no murmur Lungs - CTA, dec bs at bases ABd - soft, nt Ext - no edema Neuro - awake, following commands Fluid Balance (Past 24 Hours): I= O= Net Intake & Output 01/04/18 01/05/18 01/06/18 01/07/18 06:59 06:59 06:59 06:59 Intake Total 1565 2712 1696 Output Total 1850 1994 1370 Balance -285 717 326 Weight 93.5 kg 94.7 kg Intake: IV Fluids 2512 541 LR 2512 541 Medicated IV 217 CC - Propofol/Diprivan 217 Oral 0 Tube Feeding 1248 855 Tube Feeding Flush Amount 100 300 NG Tube Irrigate Amount 200 Output: Urine 0 1245 Saul 1851994 125 Other: Estimated Stool Amount Large Labs: Laboratory Results - last 24 hr 01/05/18 01/05/18 01/05/18 05:37 12:13 17:26 POC Glucose (mg/dL) 124 H 139 H 148 H 01/05/18 01/06/18 23:37 06:06 POC Glucose (mg/dL) 151 H 176 H Impression: 72M with htn, hld, dm, cad, chf, af s/p ppm, copd, metastatic presumed lung ca admitted to the ICU with respiratory failure. No longer candidate for treatment. s/p trach. 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
[2018-01-06] MEDS: methylPREDNISolone SOD 40 MG* 1 ML VIAL IV SCH (09:27)
[2018-01-06] MEDS: Enoxaparin(*) 40 MG/0.4 ML SYR SUBCUT SCH (09:31)
[2018-01-06] MEDS: Famotidine SUSP* 40 MG/5 ML ORAL.SYRIN G TUBE SCH (09:33)
[2018-01-06] MEDS: SOTALOL 120 MG PO SCH ×2 (09:34→20:48)
[2018-01-06] MEDS: Senna TAB NG TUBE SCH ×2 (09:35→20:33)
[2018-01-06] MEDS: Polyethylene Glycol 3350* 17 GM PACKET NG TUBE SCH ×2 (09:35→20:33)
--- NOTE | 2018-01-06 13:24 | RAD ---
Indication: Respiratory distress. Single frontal view of the chest performed at 1255 hours was reviewed. Comparison is made with previous exam dated January 05, 2018. Cardiomegaly is noted. Probable bilateral pleural effusions are noted. Pacemaker leads are in place. Mild interstitial edema consistent with vascular congestion is noted. Feeding tube appears to be within the stomach. Tracheostomy tube is in place. IMPRESSION: INTERSTITIAL EDEMA WITH VASCULAR CONGESTION AND LIKELY BILATERAL PLEURAL EFFUSIONS. CENTRAL LINE IS IN PLACE. NASOGASTRIC TUBE IS IN PLACE.
[2018-01-06] MEDS: Zolpidem TAB* 10 MG NG TUBE PRN (20:48)
[2018-01-06] MEDS: traMADol TAB* 50 MG NG TUBE PRN (20:48)
[2018-01-07] MEDS: Insulin REGULAR(*) 1 UNITS UNIT SUBCUT SCH ×4 (00:03→18:12)
[2018-01-07] MEDS: Chlorhexidine MOUTHWASH 0.12%* 15 ML UDC TOPICAL SCH ×6 (00:03→20:24)
[2018-01-07] MEDS: fentaNYL Patch Check Q Shift 1 NOTE FOLLOW UP SCH ×2 (07:20→18:38)
[2018-01-07] MEDS: Polyethylene Glycol 3350* 17 GM PACKET NG TUBE SCH ×2 (07:25→20:24)
[2018-01-07] MEDS: Senna TAB NG TUBE SCH ×2 (07:25→20:25)
--- NOTE | 2018-01-07 08:20 | PN ---
Date of Service: 01/07/18 Critical Care Services: 72M with htn, hld, dm, cad, chf, af s/p ppm, copd, metastatic presumed lung ca admitted to the ICU with respiratory failure. No longer candidate for treatment. For trach today. 01/04: unable to have trach yesterday. Plan for trach today. 01/05: s/p trach yesterday. tolerated procedure well. 01/06: ngt placed. weaning vent. 01/07: continuing to wean vent Vital Signs: Temp Pulse Resp BP SpO2 FiO2 98.7 F 60 20 104/64 98 30 01/07/18 08:03 01/07/18 08:00 01/07/18 07:00 01/07/18 08:00 01/07/18 08:00 01/07 08:00 Physical Exam: Gen: NAD, HEENT - NCAT, EOMI, PERRL Neck - no jvd, +trach CV - s1/s2, no murmur Lungs - CTA, dec bs at bases ABd - soft, nt Ext - no edema Neuro - awake, following commands Fluid Balance (Past 24 Hours): I= O= Net Intake & Output 01/05/18 01/06/18 01/07/18 01/08/18 06:59 06:59 06:59 06:59 Intake Total 2711 1696 420 Output Total 1994 1370 305 0 Balance 717 326 115 0 Weight 94.7 kg 94 kg Intake: IV Fluids 2512 541 LR 2512 541 Oral 0 Tube Feeding 855 210 Tube Feeding Flush Amount 300 210 NG Tube Irrigate Amount 200 Output: Urine 0 1245 305 0 Saul 1994 125 Other: Estimated Void Medium # Bowel Movements 1 Estimated Stool Amount Large Small # Voids 1 Labs: Laboratory Results - last 24 hr 01/06/18 01/06/18 01/06/18 13:21 18:17 23:47 POC Glucose (mg/dL) 210 H 169 H 160 H 01/07/18 05:56 POC Glucose (mg/dL) 179 H Impression: 72M with htn, hld, dm, cad, chf, af s/p ppm, copd, metastatic presumed lung ca admitted to the ICU with respiratory failure. No longer candidate for treatment. s/p trach. 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
[2018-01-07] MEDS: Famotidine SUSP* 40 MG/5 ML ORAL.SYRIN G TUBE SCH (09:51)
[2018-01-07] MEDS: methylPREDNISolone SOD 40 MG* 1 ML VIAL IV SCH (09:52)
[2018-01-07] MEDS: Enoxaparin(*) 40 MG/0.4 ML SYR SUBCUT SCH (09:52)
[2018-01-07] MEDS: SOTALOL 120 MG PO SCH ×2 (09:53→20:24)
--- NOTE | 2018-01-07 10:18 | PN ---
Progress Note - Progress Note Date of Service: 01/07/18 SOAP: Subjective: []Was off vent for most of day yesterday, placed on at night. Had difficulty with secretions. Today denies pain, breathing is comfortable, would like to have NGT out. Transferred from bed to chair w/o walker. Acetaminophen (Tylenol Adult Liq*) 650 mg NG TUBE Q4H PRN PRN Reason: FEVER/PAIN Last Admin: 12/29/17 21:57 Dose: 650 mg Albuterol/Ipratropium (Duoneb (Albuterol 2.5 Mg/Ipratropium 0.5 Mg)) 1 neb INH Q4H PRN PRN Reason: SOB/WHEEZING Last Admin: 01/04/18 15:19 Dose: 1 neb Chlorhexidine Gluconate (Peridex Mouth Wash 0.12%*) 15 ml TOPICAL Q4H [facility] Last Admin: 01/07/18 09:51 Dose: 15 ml Enoxaparin Sodium (Lovenox(*)) 40 mg SUBCUT Q24H [facility] Last Admin: 01/07/18 09:52 Dose: 40 mg Famotidine (Pepcid Susp*) 20 mg G TUBE DAILY [facility] Last Admin: 01/07/18 09:51 Dose: 20 mg Fentanyl (Duragesic Patch 50 Mcg/Hr*) 50 mcg TRANSDERM Q72H [facility] Last Admin: 01/05/18 11:14 Dose: 50 mcg Fentanyl Citrate (Fentanyl*) 50 mcg IV Q2H PRN PRN Reason: PAIN/DISCOMFORT Last Admin: 01/06/18 20:07 Dose: 50 mcg Heparin Sodium (Porcine) (Heparin Flush Port (Ivad)) 5 ml FLUSH DAILY [facility]; Protocol Last Admin: 01/07/18 09:52 Dose: 5 ml Propofol (Diprivan*) 100 mls @ 0 mls/hr IV .(Initial Rate) [facility]; Protocol Last Admin: 01/04/18 02:34 Dose: 23.1 mls/hr Insulin Human Regular (Insulin Regular(*)) 0 units SUBCUT Q6HR [facility]; Protocol Last Admin: 01/07/18 06:09 Dose: 2 units Methylprednisolone Sodium Succinate (Solu-Medrol 40 Mg) 20 mg IV DAILY [facility] Last Admin: 01/07/18 09:52 Dose: 20 mg Oxycodone/Acetaminophen (Percocet 5/325 Tab*) 1 tab NG TUBE Q4H PRN PRN Reason: Pain Last Admin: 01/04/18 07:42 Dose: 1 tab Pharmacy Profile Note (Fentanyl Patch Check Q Shift) 1 note FOLLOW UP 0700, 1900 [facility] Last Admin: 01/07/18 07:20 Dose: 1 note Polyethylene Glycol/Electrolytes (Miralax*) 17 gm NG TUBE Q12H [facility] Last Admin: 01/07/18 07:25 Dose: Not Given Senna (Senokot Tab*) 1 tab NG TUBE BID [facility] Last Admin: 01/07/18 07:25 Dose: Not Given Sotalol HCl (Sotalol (Nf)) 60 mg PO BID [facility] Last Admin: 01/07/18 09:53 Dose: 60 mg Tramadol HCl (Ultram*) 50 mg NG TUBE Q6HR PRN PRN Reason: PAIN Last Admin: 01/06/18 20:48 Dose: 50 mg Zolpidem Tartrate (Ambien Tab*) 10 mg NG TUBE BEDTIME PRN PRN Reason: INSOMNIA Last Admin: 01/06/18 20:48 Dose: 10 mg Objective: [] Vital Signs Temp Pulse Resp BP Pulse Ox 98.7 F 60 20 104/64 98 01/07/18 08:03 01/07/18 08:00 01/07/18 07:00 01/07/18 08:00 01/07/18 08:00 HEENT - Tach, mild bleeding. NGT in place. +BS BL, no wheezing, vent sounds RRR S1S2 +BS, obese, mild distention. Assessment: 72 yo M w metastatic ALK positive lung cancer admitted with fatigue, dehydration and acute renal failure after recently starting alectinib. He has had progressive weakness and poor oral intake over several weeks. Admitted with dehydration and failure to thrive. Developed respiratory failure, now with trachiostomy and slow ween from ventilator. Plan: 1. Cancer. Off therapy, prognosis poor, months. - He is DNR - Disp pending vent management, hospice on discharge. - Family and patient aware. - Will cancel further shipments of alectinib 2. Resp. Trachiostomy and will continue to try and decrease vent support. 3. GI. NPO at this time. Swallow study today and would like to have NGT out. 4. Pain. Fentanly patch 50 mcg, continue prn pain medication. 5. Labs tomorrow am.
[2018-01-07] MEDS: traMADol TAB* 50 MG NG TUBE PRN ×2 (10:35→21:25)
[2018-01-07] MEDS: Scopolamine 1.5 mg* PATCH TRANSDERM SCH (12:29)
[2018-01-07] MEDS: fentaNYL* 50 MCG/ML 2 ML VIAL (100 MCG VIAL) IV PRN (14:32)
[2018-01-07] MEDS: Zolpidem TAB* 10 MG NG TUBE PRN (21:25)
[2018-01-08] MEDS: Chlorhexidine MOUTHWASH 0.12%* 15 ML UDC TOPICAL SCH ×6 (01:06→19:46)
[2018-01-08] MEDS: Insulin REGULAR(*) 1 UNITS UNIT SUBCUT SCH ×4 (01:15→17:51)
[2018-01-08] MEDS: fentaNYL* 50 MCG/ML 2 ML VIAL (100 MCG VIAL) IV PRN ×4 (04:44→19:46)
[2018-01-08 06:03] LABS: Hematocrit 22 % (42-52); Hemoglobin 7.6 g/dl (14.0-18.0); Mean Corpuscular HGB Conc 34 g/dl (31-36); Mean Corpuscular Hemoglobin 34 pg (27-31); Mean Corpuscular Volume 99 fL (80-94); Mean Platelet Volume 7.9 um3 (7.4-10.4); Platelet Count 183 10^3/ul (150-450); Red Blood Count 2.22 10^6/ul (4.00-5.40); Red Cell Distribution Width 18 % (10.5-15); White Blood Count 13.4 10^3/ul (3.5-10.8)
[2018-01-08 06:05] LABS: ABS Basophils 0 10^3/ul (0-0.2); ABS Eosinophils 0.1 10^3/ul (0-0.6); ABS Lymphocytes 0.6 10^3/ul (1.0-4.8); ABS Monocytes 0.8 10^3/ul (0-0.8); ABS Neutrophils 11.9 10^3/ul (1.5-7.7); ABS Nucleated RBC 0 10^3/ul
[2018-01-08 06:15] LABS: Eosinophil % 0.5 % (0-6); Lymphocyte % 4.4 % (25-47); Nucleated Red Blood Cells % 0
[2018-01-08 06:22] LABS: EGFR Non-African American 90.1 (>60)
[2018-01-08] MEDS: fentaNYL Patch Check Q Shift 1 NOTE FOLLOW UP SCH ×2 (06:51→19:01)
[2018-01-08] MEDS: methylPREDNISolone SOD 40 MG* 1 ML VIAL IV SCH (07:49)
[2018-01-08] MEDS: Famotidine SUSP* 40 MG/5 ML ORAL.SYRIN G TUBE SCH (07:50)
[2018-01-08] MEDS: Polyethylene Glycol 3350* 17 GM PACKET NG TUBE SCH ×2 (07:50→20:44)
[2018-01-08] MEDS: SOTALOL 120 MG PO SCH ×2 (07:50→20:44)
[2018-01-08] MEDS: Senna TAB NG TUBE SCH ×2 (07:50→20:44)
--- NOTE | 2018-01-08 09:34 | PN ---
Progress Note - Progress Note Date of Service: 01/08/18 SOAP: Subjective: []Overall feeling well today. Continues to wean vent, on spontaneous overnight, FiO2 increased to 40% Failed swallow study, re-evaluation with videofluoroscopic swallow study today. Will likely need PEG. Pain controlled. Acetaminophen (Tylenol Adult Liq*) 650 mg NG TUBE Q4H PRN PRN Reason: FEVER/PAIN Last Admin: 12/29/17 21:57 Dose: 650 mg Albuterol/Ipratropium (Duoneb (Albuterol 2.5 Mg/Ipratropium 0.5 Mg)) 1 neb INH Q4H PRN PRN Reason: SOB/WHEEZING Last Admin: 01/04/18 15:19 Dose: 1 neb Chlorhexidine Gluconate (Peridex Mouth Wash 0.12%*) 15 ml TOPICAL Q4H [facility] Last Admin: 01/08/18 07:50 Dose: 15 ml Enoxaparin Sodium (Lovenox(*)) 40 mg SUBCUT Q24H [facility] Last Admin: 01/07/18 09:52 Dose: 40 mg Famotidine (Pepcid Susp*) 20 mg G TUBE DAILY [facility] Last Admin: 01/08/18 07:50 Dose: 20 mg Fentanyl (Duragesic Patch 50 Mcg/Hr*) 50 mcg TRANSDERM Q72H [facility] Last Admin: 01/05/18 11:14 Dose: 50 mcg Fentanyl Citrate (Fentanyl*) 50 mcg IV Q2H PRN PRN Reason: PAIN/DISCOMFORT Last Admin: 01/08/18 04:44 Dose: 50 mcg Heparin Sodium (Porcine) (Heparin Flush Port (Ivad)) 5 ml FLUSH DAILY [facility]; Protocol Last Admin: 01/07/18 09:52 Dose: 5 ml Propofol (Diprivan*) 100 mls @ 0 mls/hr IV .(Initial Rate) [facility]; Protocol Last Admin: 01/04/18 02:34 Dose: 23.1 mls/hr Insulin Human Regular (Insulin Regular(*)) 0 units SUBCUT Q6HR [facility]; Protocol Last Admin: 01/08/18 07:00 Dose: 2 units Methylprednisolone Sodium Succinate (Solu-Medrol 40 Mg) 20 mg IV DAILY [facility] Last Admin: 01/08/18 07:49 Dose: 20 mg Oxycodone/Acetaminophen (Percocet 5/325 Tab*) 1 tab NG TUBE Q4H PRN PRN Reason: Pain Last Admin: 01/04/18 07:42 Dose: 1 tab Pharmacy Profile Note (Fentanyl Patch Check Q Shift) 1 note FOLLOW UP 0700, 1900 [facility] Last Admin: 01/08/18 06:51 Dose: 1 note Pharmacy Profile Note (Scopolamine Patch Remove*) 1 note PATCH OFF Q72H [facility] Polyethylene Glycol/Electrolytes (Miralax*) 17 gm NG TUBE Q12H [facility] Last Admin: 01/08/18 07:50 Dose: 17 gm Scopolamine (Transderm-Scop 1.5 Mg Patch*) 1 patch TRANSDERM Q72H [facility] Last Admin: 01/07/18 12:29 Dose: 1 patch Senna (Senokot Tab*) 1 tab NG TUBE BID [facility] Last Admin: 01/08/18 07:50 Dose: 1 tab Sotalol HCl (Sotalol (Nf)) 60 mg PO BID [facility] Last Admin: 01/08/18 07:50 Dose: 60 mg Tramadol HCl (Ultram*) 50 mg NG TUBE Q6HR PRN PRN Reason: PAIN Last Admin: 01/07/18 21:25 Dose: 50 mg Zolpidem Tartrate (Ambien Tab*) 10 mg NG TUBE BEDTIME PRN PRN Reason: INSOMNIA Last Admin: 01/07/18 21:25 Dose: 10 mg Objective: [] Vital Signs Temp Pulse Resp BP Pulse Ox 98 F 57 16 113/66 100 01/08/18 07:34 01/08/18 08:01 01/08/18 08:00 01/08/18 08:01 01/08/18 08:01 HEENT - Tach, mild bleeding. NGT in place. +BS BL, no wheezing, vent sounds RRR S1S2 +BS, obese, mild distention. No GUADALUPE Assessment: 72 yo M w metastatic ALK positive lung cancer admitted with fatigue, dehydration and acute renal failure after recently starting alectinib. He has had progressive weakness and poor oral intake over several weeks. Admitted with dehydration and failure to thrive. Developed respiratory failure, now with trachiostomy and slow ween from ventilator. Failed swallow study yesterday, had progress on weaning off ventilator. Plan: 1. Cancer. Off therapy, prognosis poor, months. - He is DNR - Disp pending vent management, hospice on discharge. - Family and patient aware. - Will cancel further shipments of alectinib 2. Resp. Trachiostomy. Making progress. 3. GI. NPO at this time. Swallow study went poorly. Question of if aspiration related to recent respiratory arrest or if silent aspiration was cause of respiratory failure last week. Videofluoroscopic swallow study pending today. 4. Pain. Fentanly patch 50 mcg, continue prn pain medication. 5. Anemia. Ddx: JOSE DE JESUS, inflammatory state,. - Tx tomorrow for further drop in Hgb -Check Iron, B12, Epo and ESR.
--- NOTE | 2018-01-08 09:57 | PN ---
Date of Service: 01/08/18 Critical Care Services: 72M with htn, hld, dm, cad, chf, af s/p ppm, copd, metastatic presumed lung ca admitted to the ICU with respiratory failure. No longer candidate for treatment. For trach today. 01/04: unable to have trach yesterday. Plan for trach today. 01/05: s/p trach yesterday. tolerated procedure well. 01/06: ngt placed. weaning vent. 01/07: continuing to wean vent 01/08: Failed swallow yesterday. For video swallow evaluation today. Vital Signs: Temp Pulse Resp BP SpO2 FiO2 98 F 57 16 113/66 100 40 01/08/18 07:34 01/08/18 08:01 01/08/18 08:00 01/08/18 08:01 01/08/18 08:01 01/08 08:00 Physical Exam: Gen: NAD, HEENT - NCAT, EOMI, PERRL Neck - no jvd, +trach CV - s1/s2, no murmur Lungs - CTA, dec bs at bases ABd - soft, nt Ext - no edema Neuro - awake, following commands Fluid Balance (Past 24 Hours): I= O= Net Intake & Output 01/06/18 01/07/18 01/08/18 01/09/18 06:59 06:59 06:59 06:59 Intake Total 1580 377 6767 1315 Output Total 1370 305 550 350 Balance 356 777 2437 965 Weight 94 kg Intake: IV Fluids 541 LR 541 Oral 0 Tube Feeding 950 961 1339 865 Tube Feeding Flush Amount 300 210 810 300 NG Tube Irrigate Amount 150 Output: NG Tube Drainage Amount 0 Urine 1245 305 550 350 Saul 125 Other: Estimated Void Medium Small Date of Last Bowel 10/08/17 10/08/17 Movement # Bowel Movements 1 1 1 Estimated Stool Amount Large Small Small Small # Voids 1 1 Labs: Laboratory Results - last 24 hr 01/07/18 01/07/18 01/08/18 12:10 17:31 01:04 WBC RBC Hgb Hct MCV MCH MCHC RDW Plt Count MPV Neut % (Auto) Lymph % (Auto) [place] % (Auto) Eos % (Auto) Baso % (Auto) Absolute Neuts (auto) Absolute Lymphs (auto) Absolute Monos (auto) Absolute Eos (auto) Absolute Basos (auto) Absolute Nucleated RBC Nucleated RBC % Sodium Potassium Chloride Carbon Dioxide Anion Gap BUN Creatinine Est GFR ( Amer) Est GFR (Non-Af Amer) BUN/Creatinine Ratio Glucose POC Glucose (mg/dL) 170 H 161 H 131 H Calcium Total Bilirubin AST ALT Alkaline Phosphatase Total Protein Albumin Globulin Albumin/Globulin Ratio Prealbumin 01/08/18 01/08/18 05:50 05:50 WBC 13.4 H RBC 2.22 L Hgb 7.6 L Hct 22 L MCV 99 H MCH 34 H MCHC 34 RDW 18 H Plt Count 183 MPV 7.9 Neut % (Auto) 88.9 H Lymph % (Auto) 4.4 L [place] % (Auto) 6.0 Eos % (Auto) 0.5 Baso % (Auto) 0.2 Absolute Neuts (auto) 11.9 H Absolute Lymphs (auto) 0.6 L Absolute Monos (auto) 0.8 Absolute Eos (auto) 0.1 Absolute Basos (auto) 0 Absolute Nucleated RBC 0 Nucleated RBC % 0 Sodium 138 Potassium 4.0 Chloride 101 Carbon Dioxide 31 Anion Gap 6 BUN 38 H Creatinine 0.84 Est GFR ( Amer) 109.0 Est GFR (Non-Af Amer) 90.1 BUN/Creatinine Ratio 45.2 H Glucose 158 H POC Glucose (mg/dL) Calcium 9.4 Total Bilirubin 1.00 AST 13 ALT 32 Alkaline Phosphatase 69 Total Protein 5.6 L Albumin 2.9 L Globulin 2.7 Albumin/Globulin Ratio 1.1 Prealbumin 12 L Impression: 72M with htn, hld, dm, cad, chf, af s/p ppm, copd, metastatic presumed lung ca admitted to the ICU with respiratory failure. No longer candidate for treatment. s/p trach. Plan: Neuro - - pain control CV - htn, hld, cad, chf, af s/p AICD - bp ok - c/w asa/bblocker Pulm - acute respiratory failure with hypoxia and hypercapnea, copd - multifactorial 2/2 tracheal stenosis, lung ca, and copd - s/p trach - scopolomine patch - wean vent as tolerated ID - normal wbc - afebrile - no evidence of infection GI - - ngt placed - tube feeds - failed bedside swallow 01/07 - for video swallow eval today - likely needs peg Renal - monitor i/o Heme - lung cancer - no longer candidate for treatment - hospice evaluation Endo - dm - check fs, niss Lines - port, piv DNR
[2018-01-08] MEDS: fentaNYL PATCH 50 MCG/HR TRANSDERM SCH (10:43)
[2018-01-08] MEDS: Enoxaparin(*) 40 MG/0.4 ML SYR SUBCUT SCH (10:43)
--- NOTE | 2018-01-08 14:58 | RAD ---
INDICATION: History of aspiration COMPARISON: None FINDINGS: 0.9 minutes of fluoroscopy were provided for the speech pathology department. Fluoroscopic spot imaging of the swallowing mechanism were obtained and showed aspiration upon ingestion of thickened barium. Please refer to speech pathology report CPT II Codes: G9500 (fluoro time doc)
[2018-01-08] MEDS: Zolpidem TAB* 10 MG NG TUBE PRN (22:06)
[2018-01-09] MEDS: Insulin REGULAR(*) 1 UNITS UNIT SUBCUT SCH ×5 (00:02→23:59)
[2018-01-09] MEDS: Chlorhexidine MOUTHWASH 0.12%* 15 ML UDC TOPICAL SCH ×6 (00:02→20:52)
--- NOTE | 2018-01-09 00:51 | CONS ---
CC: Dr. Carrillo; Dr. Molina; Dr. Delma Briscoe * CONSULTATION NOTE: DATE OF CONSULT: 01/08/18 HOSPITAL PROVIDER: Dr. Molina. KERFER MACHINE OPERATOR/ONCOLOGIST: Dr. Nelson Carrillo REASON FOR CONSULTATION: Oropharyngeal dysphagia and need for PEG placement. HISTORY OF PRESENT ILLNESS: Mr. Mcmahon is a pleasant 72-year-old male with a history of A.fibrillation, hypertension, diabetes, coronary artery disease, COPD, pacemaker, metastatic lung cancer with tracheal stenosis with acute respiratory failure and status post tracheostomy placement POD 1. He has been under the Hematology/Oncology services for treatment of his lung cancer, however , due to patient's respiratory failure and tracheal stenosis he is no longer a candidate for therapy. Gastroenterology was consulted for a failed swallow study and oropharyngeal dysphagia. He is currently receiving tube feedings via Dobhoff and is tolerating them well. He is not currently on anticoagulation besides Lovenox therapy for DVT prophylaxis. He denies any current gastrointestinal symptoms including nausea, vomiting, hematemesis, melena, hematochezia, dysphagia, odynophagia. He does admit to an upper endoscopy in the distant past but does not recall the results. PAST MEDICAL HISTORY: 1. Hypertension. 2. Hyperlipidemia. 3. Diabetes mellitus. 4. CAD. 5. History of CHF. 6. COPD. 7. Lung cancer with tracheal stenosis. 8. Atrial fibrillation. 9. Benign prostatic hypertrophy. 10. MVP. 11. Peripheral neuropathy. 12. Spondylosis. 13. History of SVT, status post pacemaker placement. PAST SURGICAL HISTORY: 1. Pacemaker placement. 2. Tonsillectomy. 3. Port-A-Cath placement. CURRENT MEDICATIONS: 1. Tylenol as needed. 2. DuoNeb. 3. Lovenox. 4. Pepcid. 5. Fentanyl transdermal. 6. Solu-Medrol. 7. Percocet as needed. 8. Scopolamine patch. 9. MiraLAX. 10. Senokot. 11. Sotalol. 12. Ultram. 13. Ambien as needed. ALLERGIES: To BEE VENOM, PROTEIN, HONEY BEE, MORPHINE. FAMILY HISTORY: Father with lung cancer, history of VA. Mother with breast cancer, sister with thyroid cancer. SOCIAL HISTORY: Smokes about a half a pack per day. No illicit drug use. Drinks casually. REVIEW OF SYSTEMS: Review of systems on a 14-point scale have been reviewed. All pertinent positives and negatives have been noted above in the HPI. PHYSICAL EXAM: Temperature 97.9, pulse 60, respirations 15, oxygenation at 100 % ventilator, blood pressure 104/62. Generally, the patient is alert and oriented x3. Well nourished, answering questions appropriately. HEENT: Normocephalic, atraumatic. Extraocular muscles intact. Anicteric sclerae bilaterally. Tracheostomy is present. Cardiovascular Exam: Regular rate and rhythm. Pulmonary Exam: Clear to auscultation bilaterally. Abdominal Exam: Positive bowel sounds, obese, soft, nontender, nondistended. No rebound, guarding, rigidity. No hepatosplenomegaly. No surgical scars are noted. Extremities: No clubbing, cyanosis, or edema. RUE Port-a-cath. DIAGNOSTIC STUDIES/LAB DATA: WBC is 13.4, hemoglobin 7.6, hematocrit 22, platelets 183, ESR 77. Sodium 138, potassium 4, chloride 101, CO2 31, anion gap 6, creatinine 0.84. Iron 40, TIBC 211, percent saturation 19, transferrin 151, ferritin 15.8. Total bilirubin 1. AST 13, ALT 32, alkaline phosphatase 69 , total creatinine kinase 22, total protein 5.6. ASSESSMENT AND PLAN: Mr. Mcmahon is a pleasant 72-year-old gentleman with history of atrial fibrillation, diabetes mellitus, coronary artery disease, hypertension, mitral valve prolapse, history of supraventricular tachycardia status post pacemaker placement with lung cancer and tracheal stenosis, status post recent tracheostomy placement yesterday, who presented with dehydration. During his hospital stay he was intubated due to acute respiratory distress from tracheal stenosis. He is postop day 1 from tracheostomy placement yesterday. He is doing very well. Unfortunately, he can no longer have treatment due to his current disease state. Gastroenterology was consulted today for percutaneous endoscopic gastrostomy tube placement for nutritional purposes and failed swallow evaluation from his oropharyngeal dysphagia. I discussed with the patient and his entire family at bedside the risks, benefits and complications of the procedure. They are in agreement with proceeding forward tomorrow. We will hold the am dose of Lovenox prior to the procedure tomorrow. We will hold tube feedings after midnight. Further recommendations will be provided as the patient's clinical course progresses. I discussed the case with Dr. Molina and patient's nurse at bedside. Thank you, Dr. Molina and Dr. Carrillo, for allowing us to participate in the care of your patient. If you should have any further questions or concerns, please do not hesitate to contact us. [id number]/[facility] #: [id number] KAI
[2018-01-09] MEDS: fentaNYL* 50 MCG/ML 2 ML VIAL (100 MCG VIAL) IV PRN ×2 (06:27→18:18)
[2018-01-09] MEDS: fentaNYL Patch Check Q Shift 1 NOTE FOLLOW UP SCH ×2 (07:41→19:21)
--- NOTE | 2018-01-09 08:03 | PN ---
Date of Service: 01/09/18 Critical Care Services: 72M with htn, hld, dm, cad, chf, af s/p ppm, copd, metastatic presumed lung ca admitted to the ICU with respiratory failure. No longer candidate for treatment. For trach today. 01/04: unable to have trach yesterday. Plan for trach today. 01/05: s/p trach yesterday. tolerated procedure well. 01/06: ngt placed. weaning vent. 01/07: continuing to wean vent 01/08: Failed video swallow eval 01/09: For PEG today Vital Signs: Temp Pulse Resp BP SpO2 FiO2 98.1 F 60 10 127/75 96 40 01/09/18 07:31 01/09/18 07:21 01/09/18 07:51 01/09/18 07:10 01/09/18 07:21 01/09 07:51 Physical Exam: Gen: NAD, HEENT - NCAT, EOMI, PERRL Neck - no jvd, +trach CV - s1/s2, no murmur Lungs - CTA, dec bs at bases ABd - soft, nt Ext - no edema Neuro - awake, following commands Fluid Balance (Past 24 Hours): I= O= Net Intake & Output 01/07/18 01/08/18 01/09/18 01/10/18 06:59 06:59 06:59 06:59 Intake Total 420 2882 2970 Output Total 305 550 975 Balance 115 2332 1994 Weight 94 kg Intake: Oral 0 Tube Feeding 210 2072 1850 Tube Feeding Flush Amount 210 810 970 NG Tube Irrigate Amount 150 Output: NG Tube Drainage Amount 0 Urine 305 550 975 Other: Estimated Void Medium Small Date of Last Bowel 10/08/17 10/08/17 Movement # Bowel Movements 1 1 1 Estimated Stool Amount Small Small Medium # Voids 1 1 Labs: Laboratory Results - last 24 hr 01/08/18 01/08/18 01/08/18 10:00 10:00 11:59 ESR 77 H POC Glucose (mg/dL) 160 H Iron 40 L TIBC 211 L % Saturation 19 Unsat Iron Binding 171 Transferrin 151 L Ferritin 1215.8 H Total Creatine Kinase 22 Vitamin B12 662 01/08/18 01/08/18 01/09/18 17:45 23:58 05:52 ESR POC Glucose (mg/dL) 190 H 148 H 134 H Iron TIBC % Saturation Unsat Iron Binding Transferrin Ferritin Total Creatine Kinase Vitamin B12 Impression: 72M with htn, hld, dm, cad, chf, af s/p ppm, copd, metastatic presumed lung ca admitted to the ICU with respiratory failure. No longer candidate for treatment. s/p trach. Plan: Neuro - - pain control CV - htn, hld, cad, chf, af s/p AICD - bp ok - c/w asa/bblocker Pulm - acute respiratory failure with hypoxia and hypercapnea, copd - multifactorial 2/2 tracheal stenosis, lung ca, and copd - s/p trach - scopolomine patch - wean vent as tolerated ID - normal wbc - afebrile - no evidence of infection GI - - failed swallow eval - for PEG today Renal - monitor i/o Heme - lung cancer - no longer candidate for treatment - hospice evaluation Endo - dm - check fs, niss Lines - port, piv DNR
[2018-01-09] MEDS: Famotidine SUSP* 40 MG/5 ML ORAL.SYRIN G TUBE SCH (08:41)
[2018-01-09] MEDS: SOTALOL 120 MG PO SCH ×2 (08:42→20:52)
[2018-01-09] MEDS: methylPREDNISolone SOD 40 MG* 1 ML VIAL IV SCH (08:42)
[2018-01-09] MEDS: Senna TAB NG TUBE SCH ×2 (08:42→20:49)
[2018-01-09] MEDS: Polyethylene Glycol 3350* 17 GM PACKET NG TUBE SCH (08:42)
[2018-01-09] MEDS ORDERED: Polyethylene Glycol 3350* 17 GM PACKET NG TUBE PRN (10:28)
--- NOTE | 2018-01-09 10:47 | PN ---
Progress Note - Progress Note Date of Service: 01/09/18 SOAP: Subjective: [Tan aspiration on video assisted swallow eval, plan for PEG tube placement with Dr Luis Felipe ramirez. Maintained on spontaneous mode on vent, tolerating well. ] Objective: [ Laboratory Results - last 24 hr 01/08/18 01/08/18 01/08/18 10:00 10:00 11:59 ESR 77 H POC Glucose (mg/dL) 160 H Ferritin 1215.8 H Vitamin B12 662 01/08/18 01/08/18 01/09/18 17:45 23:58 05:52 ESR POC Glucose (mg/dL) 190 H 148 H 134 H Ferritin Vitamin B12 Vital Signs Temp Pulse Resp BP Pulse Ox 98.1 F 62 12 115/64 99 01/09/18 07:31 01/09/18 09:01 01/09/18 09:00 01/09/18 09:01 01/09/18 09:01 Acetaminophen (Tylenol Adult Liq*) 650 mg NG TUBE Q4H PRN PRN Reason: FEVER/PAIN Last Admin: 12/29/17 21:57 Dose: 650 mg Albuterol/Ipratropium (Duoneb (Albuterol 2.5 Mg/Ipratropium 0.5 Mg)) 1 neb INH Q4H PRN PRN Reason: SOB/WHEEZING Last Admin: 01/04/18 15:19 Dose: 1 neb Chlorhexidine Gluconate (Peridex Mouth Wash 0.12%*) 15 ml TOPICAL Q4H [facility] Last Admin: 01/09/18 08:40 Dose: 15 ml Enoxaparin Sodium (Lovenox(*)) 40 mg SUBCUT Q24H [facility] Famotidine (Pepcid Susp*) 20 mg G TUBE DAILY [facility] Last Admin: 01/09/18 08:41 Dose: Not Given Fentanyl (Duragesic Patch 50 Mcg/Hr*) 50 mcg TRANSDERM Q72H [facility] Last Admin: 01/08/18 10:43 Dose: 50 mcg Fentanyl Citrate (Fentanyl*) 50 mcg IV Q2H PRN PRN Reason: PAIN/DISCOMFORT Last Admin: 01/09/18 06:27 Dose: 50 mcg Heparin Sodium (Porcine) (Heparin Flush Port (Ivad)) 5 ml FLUSH DAILY [facility]; Protocol Last Admin: 08/08/18 08:41 Dose: 5 ml Propofol (Diprivan*) 100 mls @ 0 mls/hr IV .(Initial Rate) [facility]; Protocol Last Admin: 01/04/18 02:34 Dose: 23.1 mls/hr Ampicillin Sodium 2 gm/ Sodium (Chloride) 100 mls @ 200 mls/hr IVPB ONCE ONE Stop: 01/09/18 11:29 Insulin Human Regular (Insulin Regular(*)) 0 units SUBCUT Q6HR [facility]; Protocol Last Admin: 01/09/18 07:38 Dose: Not Given Methylprednisolone Sodium Succinate (Solu-Medrol 40 Mg) 20 mg IV DAILY [facility] Last Admin: 01/09/18 08:42 Dose: 20 mg Oxycodone/Acetaminophen (Percocet 5/325 Tab*) 1 tab NG TUBE Q4H PRN PRN Reason: Pain Last Admin: 01/04/18 07:42 Dose: 1 tab Pharmacy Profile Note (Fentanyl Patch Check Q Shift) 1 note FOLLOW UP 0700, 1900 [facility] Last Admin: 01/09/18 07:41 Dose: 1 note Pharmacy Profile Note (Scopolamine Patch Remove*) 1 note PATCH OFF Q72H [facility] Polyethylene Glycol/Electrolytes (Miralax*) 17 gm NG TUBE Q12H PRN PRN Reason: CONSTIPATION Scopolamine (Transderm-Scop 1.5 Mg Patch*) 1 patch TRANSDERM Q72H [facility] Last Admin: 01/07/18 12:29 Dose: 1 patch Senna (Senokot Tab*) 1 tab NG TUBE BID [facility] Last Admin: 01/09/18 08:42 Dose: Not Given Sotalol HCl (Sotalol (Nf)) 60 mg PO BID [facility] Last Admin: 01/09/18 08:42 Dose: Not Given Tramadol HCl (Ultram*) 50 mg NG TUBE Q6HR PRN PRN Reason: PAIN Last Admin: 01/07/18 21:25 Dose: 50 mg Zolpidem Tartrate (Ambien Tab*) 10 mg NG TUBE BEDTIME PRN PRN Reason: INSOMNIA Last Admin: 01/08/18 22:06 Dose: 10 mg Exam: Gen: Chronically ill appears 72 yo male in a recliner with present. No acute distress HEENT: recent tracheostomy, some foul odor CV: RRR Resp: course lung sounds Abd: soft, nonTTP Ext: no edema ] Assessment: [72 yo male with ALK + lung CA admitted with progressive weakness and fatigue with poor oral intake with acute renal injury after recently starting alectinib who developed acute respiratory failure and intubated. No s/p tracheostomy. Failed swallow evaluation with planned PEG tube placement.] Plan: [1. ALK + lung CA - no further treatment planned 2. Respiratory failure - doing well weaning from vent - tracheostomy in place 3. Dysphagia - failed swallow eval - PEG tube with Dr Briscoe today - nutrition consult requested 4. Anemia - repeat CBC pending today - iron stores appear adequate - erythropoietin level pending - ESR 77 - likely related to acute/chronic illness - no signs of bleeding - transfuse today if Hgb remains <8 g/dl 5. Leukocytosis - primarily neutrophilia - likely steroid induced (started 01/06) - monitor for fever, infection seems less likely Dispo: transfer to vent facility (sounds like bed is available at [facility] in [place]) when medically stable, likely in next few days - asked about use of medical marajuana while in rehab, will ask about policy]
[2018-01-09] MEDS ORDERED: Ampicillin IV* 2 GM in NS 0.9% 100 ML* 100 ML IVPB ONE (11:00)
[2018-01-09] MEDS ORDERED: fentaNYL* 50 MCG/ML 2 ML VIAL (100 MCG VIAL) ONE (11:06)
[2018-01-09] MEDS ORDERED: Midazolam* 1 MG/ML 10 ML VIAL (10 MG) ONE (11:06)
[2018-01-09 11:49] LABS: EGFR Non-African American 101.1 (>60)
[2018-01-09 11:51] LABS: ABS Basophils 0 10^3/ul (0-0.2); ABS Eosinophils 0 10^3/ul (0-0.6); ABS Lymphocytes 0.3 10^3/ul (1.0-4.8); ABS Monocytes 0.5 10^3/ul (0-0.8); ABS Neutrophils 10.1 10^3/ul (1.5-7.7); ABS Nucleated RBC 0 10^3/ul; Eosinophil % 0.3 % (0-6); Hematocrit 24 % (42-52); Hemoglobin 8.2 g/dl (14.0-18.0); Lymphocyte % 2.5 % (25-47); Mean Corpuscular HGB Conc 34 g/dl (31-36); Mean Corpuscular Hemoglobin 35 pg (27-31); Mean Corpuscular Volume 100 fL (80-94); Mean Platelet Volume 8.7 um3 (7.4-10.4); Nucleated Red Blood Cells % 0; Platelet Count 187 10^3/ul (150-450); Red Blood Count 2.37 10^6/ul (4.00-5.40); Red Cell Distribution Width 18 % (10.5-15)
[2018-01-09] MEDS: Zolpidem TAB* 10 MG NG TUBE PRN (22:06)
[2018-01-10] MEDS: Chlorhexidine MOUTHWASH 0.12%* 15 ML UDC TOPICAL SCH ×6 (00:17→19:54)
--- NOTE | 2018-01-10 02:44 | PRO ---
CC: Dr. Dafne Guerrero; Dr. Nelson Carrillo; Dr. Molina; Delma Briscoe DO * GASTROENTEROLOGY OPERATIVE REPORT: DATE OF PROCEDURE: 01/09/18 - ROOM #ICU-05 OPERATIVE PROCEDURE: Esophagogastroduodenoscopy to second portion of duodenum with percutaneous endoscopic gastrostomy tube placement. MOLD BURNER: Delma Briscoe DO ANESTHESIA: 1. Midazolam 4 mg IV. 2. Fentanyl 50 mcg IV. HISTORY OF PRESENT ILLNESS: Marty is a 72-year-old male with lung cancer and metastasis and recent diagnosis of tracheal stenosis, status post tracheostomy placement, who we have been consulted for placement of percutaneous endoscopic gastrostomy tube due to oropharyngeal dysphagia and protein-calorie malnutrition. PREOPERATIVE DIAGNOSES: 1. Protein-calorie malnutrition. 2. Oropharyngeal dysphagia. POSTOPERATIVE DIAGNOSES: 1. Successful placement of percutaneous endoscopic gastrostomy tube in the body of the stomach. 2. Normal-appearing duodenum to the second portion. 3. Minimal antral gastritis. 4. Irregular-appearing Z-line located at 43 cm from the incisors suggestive of gastroesophageal reflux disease. RECOMMENDATIONS: 1. PEG tube may be used for medications and water flushes 4 hours post- procedure. 2. If there are no overnight issues, may start tube feeds per Nutrition recommendations in the morning. 3. On Pepcid daily. 4. Discussed results and recommendations with ICU team and patient's . DESCRIPTION OF PROCEDURE: Esophagogastroduodenoscopy with percutaneous endoscopic gastrostomy tube placement was discussed in detail with the patient as well as the patient's family including at bedside. Complications included, but were not limited to reaction to anesthesia, aspiration, increased risk of bleeding, infection, and perforation. All questions were answered. The patient and family demonstrated understanding of the conversation and informed consent was obtained. Next, the patient remained in the intensive care unit in supine position. The travel endoscopy cart was brought to the ICU at patient's bedside. Cardiac, blood pressure and oxygen monitors were already applied to patient. The patient was found to be a fit candidate for moderate anesthesia. After adequate IV sedation was achieved, a bite-block was placed. Next, a standard adult Olympus endoscope was inserted per os under direct visualization to the first and second portion of the duodenum. These areas were grossly normal appearing. Further withdrawal of the endoscope into the gastric lumen revealed very mild erythema in the antrum. The rest of the gastric lumen was normal appearing. On retroflexion, there was a slightly loose gastric cardia sling. Further withdrawal of the endoscope into the distal esophagus revealed an irregular Z-line at 43 cm from the incisors. The rest of the tubular esophagus was normal appearing. The endoscope was then maneuvered to the body of the stomach. The light from the endoscope was readily visible through the patient' s anterior abdominal wall, 2 cm inferior to the left costal margin. This transilluminated quite easily. Finger impulse was seen briskly through the gastroscope as well. The patient's epigastrium was then prepped with Betadine and draped in a standard sterile fashion. We used a local needle to infiltrate the skin under the proposed PEG site first. This was infiltrated with a wheel of 1% lidocaine. The local needle was then used to enter the stomach. The suction was held on this as it was used to enter the stomach and we saw no air or sockets or stool prior to entering the gastric lumen. Local lidocaine was then infiltrated as I withdrew the needle along the path of this. A small stab incision was then made and an introducer needle was then placed while aspirating into the gastric lumen. Again, no air, sockets, or stool was noted prior to visualizing the tip of the needle in the gastric lumen. The guidewire then placed through the introducer needle. This was then grasped and withdrawn through the patient's mouth. This was then attached to a [employer] 20- [place] PEG tube, which was then pulled in an antegrade manner into the stomach and out of the anterior abdominal wall. The esophagus was then re-entered with the endoscope and this was advanced into the stomach. The tube at 3-cm was noted to be not too tight or not too loose, but to appear just right without any blanching of the gastric mucosa. It appeared it spun easily as well. It was secured at its depth and cut to size and placed to gravity drainage. The stomach was then desufflated and the endoscope was then withdrawn along with the length of the esophagus. The patient tolerated the procedure well and remained in the intensive care unit in stable condition for further care. Thank you, Dr. Carrillo, for allowing us to participate in the care of your patient. If you should have any further questions or concerns, please do not hesitate to contact us. [id number]/[facility] #: [id number] KAI
[2018-01-10] MEDS: Insulin REGULAR(*) 1 UNITS UNIT SUBCUT SCH ×3 (07:01→18:28)
[2018-01-10] MEDS: fentaNYL Patch Check Q Shift 1 NOTE FOLLOW UP SCH ×2 (07:20→19:10)
[2018-01-10] MEDS: Famotidine SUSP* 40 MG/5 ML ORAL.SYRIN G TUBE SCH (08:39)
--- NOTE | 2018-01-10 08:39 | PN ---
Date of Service: 01/10/18 Critical Care Services: 72M with htn, hld, dm, cad, chf, af s/p ppm, copd, metastatic presumed lung ca admitted to the ICU with respiratory failure. No longer candidate for treatment. For trach today. 01/04: unable to have trach yesterday. Plan for trach today. 01/05: s/p trach yesterday. tolerated procedure well. 01/06: ngt placed. weaning vent. 01/07: continuing to wean vent 01/08: Failed video swallow eval 01/09: For PEG today 01/10: s/p PEG. pending placement. Vital Signs: Temp Pulse Resp BP SpO2 FiO2 98.8 F 60 24 110/64 100 40 01/10/18 07:35 01/10/18 07:00 01/10/18 05:59 01/10/18 07:00 01/10/18 07:00 01/10 04:00 Physical Exam: Gen: NAD, HEENT - NCAT, EOMI, PERRL Neck - no jvd, +trach CV - s1/s2, no murmur Lungs - CTA, dec bs at bases ABd - soft, nt, +PEG Ext - no edema Neuro - awake, following commands Fluid Balance (Past 24 Hours): I= O= Net Intake & Output 01/08/18 01/09/18 01/10/18 01/11/18 06:59 06:59 06:59 06:59 Intake Total 2882 2970 Output Total 550 975 875 Balance 2331 Weight 93.6 kg Intake: Oral 0 Tube Feeding 2071 1850 Tube Feeding Flush Amount 810 970 NG Tube Irrigate Amount 150 Output: NG Tube Drainage Amount 0 Urine 550 975 875 Other: Estimated Void Small Medium Date of Last Bowel 10/08/17 10/08/17 Movement # Bowel Movements 1 1 1 Estimated Stool Amount Small Medium Medium # Voids 1 1 Labs: Laboratory Results - last 24 hr 01/08/18 01/09/18 01/09/18 10:00 10:35 10:35 WBC 11.0 H RBC 2.37 L Hgb 8.2 L Hct 24 L MCV 100 H MCH 35 H MCHC 34 RDW 18 H Plt Count 187 MPV 8.7 Neut % (Auto) 92.1 H Lymph % (Auto) 2.5 L [place] % (Auto) 4.8 Eos % (Auto) 0.3 Baso % (Auto) 0.3 Absolute Neuts (auto) 10.1 H Absolute Lymphs (auto) 0.3 L Absolute Monos (auto) 0.5 Absolute Eos (auto) 0 Absolute Basos (auto) 0 Absolute Nucleated RBC 0 Nucleated RBC % 0 Sodium 139 Potassium 4.2 Chloride 102 Carbon Dioxide 33 H Anion Gap 4 BUN 38 H Creatinine 0.76 Est GFR ( Amer) 122.3 Est GFR (Non-Af Amer) 101.1 BUN/Creatinine Ratio 50.0 H Glucose 161 H POC Glucose (mg/dL) Glucose Meter Confirm Calcium 9.5 Erythropoietin 53.8 H Total Bilirubin 1.30 H AST 12 L ALT 32 Alkaline Phosphatase 74 Total Protein 5.6 L Albumin 3.0 L Globulin 2.6 Albumin/Globulin Ratio 1.2 01/09/18 01/09/18 01/09/18 12:01 17:48 23:57 WBC RBC Hgb Hct MCV MCH MCHC RDW Plt Count MPV Neut % (Auto) Lymph % (Auto) [place] % (Auto) Eos % (Auto) Baso % (Auto) Absolute Neuts (auto) Absolute Lymphs (auto) Absolute Monos (auto) Absolute Eos (auto) Absolute Basos (auto) Absolute Nucleated RBC Nucleated RBC % Sodium Potassium Chloride Carbon Dioxide Anion Gap BUN Creatinine Est GFR ( Amer) Est GFR (Non-Af Amer) BUN/Creatinine Ratio Glucose POC Glucose (mg/dL) 168 H 150 H 113 H Glucose Meter Confirm Calcium Erythropoietin Total Bilirubin AST ALT Alkaline Phosphatase Total Protein Albumin Globulin Albumin/Globulin Ratio 01/10/18 01/10/18 01/10/18 05:52 05:57 06:07 WBC RBC Hgb Hct MCV MCH MCHC RDW Plt Count MPV Neut % (Auto) Lymph % (Auto) [place] % (Auto) Eos % (Auto) Baso % (Auto) Absolute Neuts (auto) Absolute Lymphs (auto) Absolute Monos (auto) Absolute Eos (auto) Absolute Basos (auto) Absolute Nucleated RBC Nucleated RBC % Sodium Potassium Chloride Carbon Dioxide Anion Gap BUN Creatinine Est GFR ( Amer) Est GFR (Non-Af Amer) BUN/Creatinine Ratio Glucose POC Glucose (mg/dL) 61 L 108 H Glucose Meter Confirm 95 Calcium Erythropoietin Total Bilirubin AST ALT Alkaline Phosphatase Total Protein Albumin Globulin Albumin/Globulin Ratio Impression: 72M with htn, hld, dm, cad, chf, af s/p ppm, copd, metastatic presumed lung ca admitted to the ICU with respiratory failure. No longer candidate for treatment. s/p trach. s/p PEG. Plan: Neuro - - pain control CV - htn, hld, cad, chf, af s/p AICD - bp ok - c/w asa/bblocker Pulm - acute respiratory failure with hypoxia and hypercapnea, copd - multifactorial 2/2 tracheal stenosis, lung ca, and copd - s/p trach - scopolomine patch - wean vent as tolerated ID - normal wbc - afebrile - no evidence of infection GI - - s/p peg - restart tube feeds Renal - monitor i/o Heme - lung cancer - no longer candidate for treatment - hospice evaluation Endo - dm - check fs, niss Lines - port, piv DNR Probable discharge to rehab tomorrow.
[2018-01-10] MEDS: SOTALOL 120 MG PO SCH ×2 (08:41→21:25)
[2018-01-10] MEDS: Senna TAB NG TUBE SCH ×2 (08:42→21:25)
[2018-01-10] MEDS: Enoxaparin(*) 40 MG/0.4 ML SYR SUBCUT SCH (11:10)
[2018-01-10] MEDS: Scopolamine 1.5 mg* PATCH TRANSDERM SCH (11:11)
[2018-01-10] MEDS: Scopolamine PATCH Remove* 1 NOTE MISC PATCH OFF SCH (11:15)
--- NOTE | 2018-01-10 12:37 | PN ---
Progress Note - Progress Note Date of Service: 01/10/18 SOAP: Subjective: []Feeling well overall, somewhat discouraged. No pain. Lots of phlegm. Wants to drink but know he can't. Medications: Acetaminophen (Tylenol Adult Liq*) 650 mg NG TUBE Q4H PRN PRN Reason: FEVER/PAIN Last Admin: 12/29/17 21:57 Dose: 650 mg Albuterol/Ipratropium (Duoneb (Albuterol 2.5 Mg/Ipratropium 0.5 Mg)) 1 neb INH Q4H PRN PRN Reason: SOB/WHEEZING Last Admin: 01/04/18 15:19 Dose: 1 neb Chlorhexidine Gluconate (Peridex Mouth Wash 0.12%*) 15 ml TOPICAL Q4H JUAN Last Admin: 01/10/18 11:10 Dose: 15 ml Enoxaparin Sodium (Lovenox(*)) 40 mg SUBCUT Q24H JUAN Last Admin: 01/10/18 11:10 Dose: 40 mg Famotidine (Pepcid Susp*) 20 mg G TUBE DAILY JUAN Last Admin: 01/10/18 08:39 Dose: 20 mg Fentanyl (Duragesic Patch 50 Mcg/Hr*) 50 mcg TRANSDERM Q72H JUAN Last Admin: 01/08/18 10:43 Dose: 50 mcg Fentanyl Citrate (Fentanyl*) 50 mcg IV Q2H PRN PRN Reason: PAIN/DISCOMFORT Last Admin: 01/09/18 18:18 Dose: 50 mcg Heparin Sodium (Porcine) (Heparin Flush Port (Ivad)) 5 ml FLUSH DAILY JUAN; Protocol Last Admin: 01/10/18 08:39 Dose: 5 ml Propofol (Diprivan*) 100 mls @ 0 mls/hr IV .(Initial Rate) JUAN; Protocol Last Admin: 01/04/18 02:34 Dose: 23.1 mls/hr Insulin Human Regular (Insulin Regular(*)) 0 units SUBCUT Q6HR JUAN; Protocol Last Admin: 01/10/18 11:15 Dose: Not Given Oxycodone/Acetaminophen (Percocet 5/325 Tab*) 1 tab NG TUBE Q4H PRN PRN Reason: Pain Last Admin: 01/04/18 07:42 Dose: 1 tab Pharmacy Profile Note (Fentanyl Patch Check Q Shift) 1 note FOLLOW UP 0700, 1900 [facility] Last Admin: 01/10/18 07:20 Dose: 1 note Pharmacy Profile Note (Scopolamine Patch Remove*) 1 note PATCH OFF Q72H [facility] Last Admin: 01/10/18 11:15 Dose: 1 dose Polyethylene Glycol/Electrolytes (Miralax*) 17 gm NG TUBE Q12H PRN PRN Reason: CONSTIPATION Scopolamine (Transderm-Scop 1.5 Mg Patch*) 1 patch TRANSDERM Q72H [facility] Last Admin: 01/10/18 11:11 Dose: 1 patch Senna (Senokot Tab*) 1 tab NG TUBE BID [facility] Last Admin: 01/10/18 08:42 Dose: Not Given Sotalol HCl (Sotalol (Nf)) 60 mg PO BID [facility] Last Admin: 01/10/18 08:41 Dose: 60 mg Tramadol HCl (Ultram*) 50 mg NG TUBE Q6HR PRN PRN Reason: PAIN Last Admin: 01/07/18 21:25 Dose: 50 mg Zolpidem Tartrate (Ambien Tab*) 10 mg NG TUBE BEDTIME PRN PRN Reason: INSOMNIA Last Admin: 01/09/18 22:06 Dose: 10 mg Objective: [] Vital Signs Temp Pulse Resp BP Pulse Ox 98.8 F 60 23 117/59 98 01/10/18 07:35 01/10/18 11:01 01/10/18 08:00 01/10/18 11:01 01/10/18 11:01 A&Ox3, EOMI, PERRLA, neuro grossly non-focal, excellent strength = bilat. HRR, SR on tele LS diminished, wet cough at times, notably weak Laboratory Results - last 24 hr 01/09/18 01/09/18 01/10/18 17:48 23:57 05:52 POC Glucose (mg/dL) 150 H 113 H 61 L Glucose Meter Confirm 01/10/18 01/10/18 01/10/18 05:57 06:07 11:10 POC Glucose (mg/dL) 108 H 141 H Glucose Meter Confirm 95 Assessment: []72 yo male with ALK + lung CA admitted with progressive weakness and fatigue associated with poor oral intake and subsequent acute renal injury after recently starting alectinib. During admission developed acute respiratory failure requiring intubatation, now s/p tracheostomy with slow/difficult wean from vent. Failed swallow evaluation now s/p PEG tube placement. At this time he is overall stable. Plan: []1. Resp. Failure: Ventilatory support as per ICU 2. Dyphagia: NPO, PEG nutrition - qual field manager to assist 3. Cancer - No further tx., hospice planned, palliative approach today with no further needs identified Disposition: D/C to [facility] in [place], [place] Sunday 01/14
--- NOTE | 2018-01-10 15:45 | PN ---
Progress Note - Progress Note Date of Service: 01/10/18 - Gastroenterology Note: Patient seen and examined. No new overnight events. No pain at incision site. Vital Signs: Temp Pulse Resp BP Pulse Ox 98.9 F 60 20 125/66 98 01/10/18 12:54 01/10/18 15:00 01/10/18 15:00 01/10/18 14:00 01/10/18 15:00 Physical Examination: Abdomen: Soft, NT/ND. Gtube site appears C/D/I. PEG bumper noted at 4.5 cm. Laboratory Results - last 24 hr 01/09/18 01/09/18 01/10/18 17:48 23:57 05:52 POC Glucose (mg/dL) 150 H 113 H 61 L Glucose Meter Confirm 01/10/18 01/10/18 01/10/18 05:57 06:07 11:10 POC Glucose (mg/dL) 108 H 141 H Glucose Meter Confirm 95 A/P: 72 yo male with lung carcinoma and tracheal stenosis s/p tracheostomy and orpharyngeal dyspagia s/p EGD with PEG yesterday. 1. Oropharyngeal Dysphagia ~S/p EGD with PEG yesterday. ~Started TF's per nutrition recs today. ~Discussed with RN. Please call us with any further questions or concerns. Delma Briscoe D.O.
[2018-01-10] MEDS: fentaNYL* 50 MCG/ML 2 ML VIAL (100 MCG VIAL) IV PRN ×2 (19:54→22:19)
[2018-01-10] MEDS: Zolpidem TAB* 10 MG NG TUBE PRN (23:13)
[2018-01-11] MEDS: Insulin REGULAR(*) 1 UNITS UNIT SUBCUT SCH ×5 (00:52→23:48)
[2018-01-11] MEDS: Chlorhexidine MOUTHWASH 0.12%* 15 ML UDC TOPICAL SCH ×6 (00:53→23:52)
[2018-01-11] MEDS: Acetaminophen ADULT LIQ* 650 MG/20.3 ML UDC NG TUBE PRN (02:38)
[2018-01-11] MEDS: fentaNYL* 50 MCG/ML 2 ML VIAL (100 MCG VIAL) IV PRN (02:38)
[2018-01-11] MEDS: oxyCODONE/Acetamin 5/325 MG* TAB NG TUBE PRN ×3 (04:06→19:39)
[2018-01-11] MEDS: fentaNYL Patch Check Q Shift 1 NOTE FOLLOW UP SCH ×2 (06:59→19:20)
--- NOTE | 2018-01-11 08:53 | PN ---
Date of Service: 01/11/18 - [facility] progress note Critical Care Services: Pt seen and examined at bedside. Overnight events noted . Pt sitting up in chair , slightly drowsy, responds to verbal commands, unable to converse due to trach and vent. Able to say yes or no. Has been receiving Fentanyl for pain prn last night , has also been on Fentanyl patch. Also receiving Ambien for sleep. Became confused and agitated after Ambien. Meds, vitals, labs reviewed. ROS is limited sec to trach 01/04: Trach by ENT 01/05: Tolerated trach and vent 01/06: NGT placed 01/07: continuing to wean vent 01/08: Failed video swallow eval 01/09: Failed weaning 01/10: s/p PEG 01/11: Delirium last night, still needing vent suport, thin secretions Vital Signs: Temp Pulse Resp BP SpO2 FiO2 98.9 F 60 14 109/72 100 25 01/11/18 07:49 01/11/18 07:00 01/11/18 07:00 01/11/18 07:00 01/11/18 07:00 01/11 07:38 Physical Exam: Gen: Pt in NAD, drowsy, sitting up in chair HEENT: Trach +, No JVD Lungs: Good air entry b/l, rhonchi + Cardiac: S1, S2+, regular Abdomen: Soft, BS+, PEG+, site looks clean Extremities: No edema Neuro: Drowsy, responds to verbal stimuli, oriented Fluid Balance (Past 24 Hours): I= 1065 O= 795 Net 270 Intake & Output 01/09/18 01/10/18 01/11/18 01/12/18 06:59 06:59 06:59 06:59 Intake Total 2970 1065 Output Total 975 875 795 Balance 1994 - Weight 206 lb 5.643 oz 204 lb 5.896 oz Intake: Oral 0 Tube Feeding 1850 765 Tube Feeding Flush Amount 970 300 NG Tube Irrigate Amount 150 Output: NG Tube Drainage Amount 0 Urine 975 875 520 Saul 275 Other: Estimated Void Medium Medium Date of Last Bowel 10/08/17 01/11/2018 Movement # Bowel Movements 1 1 1 Estimated Stool Amount Medium Medium Small # Voids 1 Labs: Laboratory Results - last 24 hr 01/10/18 01/10/18 01/11/18 11:10 18:14 00:46 POC Glucose (mg/dL) 141 H 120 H 137 H 01/11/18 05:54 POC Glucose (mg/dL) 180 H Nutrition: PEG feeds, advance as tolerated Impression: 72M with htn, hld, dm, cad, chf, af s/p ppm, copd, metastatic presumed lung ca, no longer candidate for treatment, admitted to floor for dehydration, was intubated and brought to ICU on 12/29 after being found to be unresponsive with agonal breathing on floor. He was difficult intubation likely sec to subglottic stenosis from cancer, had trach placed by ENT, had PEG placed for dysphagia. 1. Acute hypoxic and hypercapnic resp failure s/p intubation and trach placement given need for prolonged intubation 2. 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 Dysphagia s/p PEG placement 6. CHF, CAD, AF s/p AICD Plan: Neuro - - Has been agitated and delirious last night, suspect sec to Opiates and Ambien - Decrease Ambien to 5 mg, recommended dose in elderly _ Avoid prn entanyl, pt reports better pain control this am - Pt also receiving percocet - Aspiration precautions - Management of ICU delirium CV - Cardiac status stable - S/p AICD - c/w asa/bblocker Pulm - acute respiratory failure with hypoxia and hypercapnea - multifactorial 2 /2 tracheal stenosis, lung ca, and COPD - s/p trach - Wean as tolerated - Having secretions, needing frequent suctioning - Weaning trials have been unsuccessful sec to mental status and secretions - scopolomine patch - Pulm toilet ID - Normal WBC - afebrile - no signs of sepsis GI - - s/p peg - c/w PEG feeds Renal - No electrolyte issues - monitor i/o - Minimize lab draws Heme/Onc - Anemia, Lung cancer - no longer candidate for treatment - hospice evaluation Endo - DM - Monitor BS, insulin sliding scale Lines - Port, peripheral IV DNR Probable discharge to vent facility on Sunday. Critical Care Time: 30 min
[2018-01-11] MEDS: Famotidine SUSP* 40 MG/5 ML ORAL.SYRIN G TUBE SCH (09:02)
[2018-01-11] MEDS: Senna TAB NG TUBE SCH ×2 (09:03→21:19)
[2018-01-11] MEDS: SOTALOL 120 MG PO SCH ×2 (09:03→21:19)
--- NOTE | 2018-01-11 09:59 | PN ---
Progress Note - Progress Note Date of Service: 01/11/18 SOAP: Subjective: More confused today, had ambien last night. Breathing is fine on vent but has not tried to wean since PEG. No fevers, pain controlled but on narcotics. Events: 01/09 Failed weaning trial 01/10 PEG Vital Signs: Vital Signs Temp Pulse Resp BP Pulse Ox 98.9 F 55 14 107/73 97 01/11/18 07:49 01/11/18 09:02 01/11/18 07:00 01/11/18 09:02 01/11/18 09:02 No distress HEENT w/trach, no bleeding, no exudate Lungs: course sounds, no wheezing RRR S1S2 +BS, obese, PEG Ext warm Neuro is responsive difficulty collecting thoughts, grossly non focal. Impression: 72 year old with Alk positive metastatic cancer. Developed acute respiratory failure and now with trach and remains on Vent, failed weaning trail on the . He want to stay on vent but understands can not have additional therapy for cancer. Agrees to no escalation of care, DNI, and hospice on discharge. Plan: 1. Delerium. Agree with decrease Ambien to 5 mg qhs 2. Vent. Continue weaning trials with PEG. I suspect occult aspiration was one cause of decline. 3. FEN. On tube feeds and will continue indefinitely. 4. Cardiac. Discussed AICD. Will turn off to be compatible with DNI. Cardiology consulted, discussed with Dr. Mcgraw. Dr. Vizcaino is decorator consultant. 5. DM. BS are stable 6. Disp to NH with re-hab and vent management. Hospice on discharge. 7. Continue PT, speech therapy.
[2018-01-11] MEDS: fentaNYL PATCH 50 MCG/HR TRANSDERM SCH (10:57)
[2018-01-11] MEDS: Enoxaparin(*) 40 MG/0.4 ML SYR SUBCUT SCH (11:00)
[2018-01-11] MEDS: traMADol TAB* 50 MG NG TUBE PRN (19:39)
[2018-01-11] MEDS: Zolpidem TAB* 5 MG NG TUBE PRN (21:19)
[2018-01-12] MEDS: Chlorhexidine MOUTHWASH 0.12%* 15 ML UDC TOPICAL SCH ×5 (04:57→19:34)
[2018-01-12] MEDS: Insulin REGULAR(*) 1 UNITS UNIT SUBCUT SCH ×3 (05:46→17:17)
[2018-01-12] MEDS: fentaNYL Patch Check Q Shift 1 NOTE FOLLOW UP SCH ×2 (07:57→18:39)
[2018-01-12] MEDS: SOTALOL 120 MG PO SCH ×2 (08:07→19:39)
[2018-01-12] MEDS: Senna TAB NG TUBE SCH ×2 (08:07→19:39)
[2018-01-12] MEDS: Famotidine SUSP* 40 MG/5 ML ORAL.SYRIN G TUBE SCH (08:08)
[2018-01-12] MEDS: Enoxaparin(*) 40 MG/0.4 ML SYR SUBCUT SCH (08:08)
--- NOTE | 2018-01-12 09:24 | PN ---
Progress Note - Progress Note Date of Service: 01/12/18 SOAP: Subjective: more alert this am. had a good night last night, with good sleep. denies pain this am Objective: Vital Signs Temp Pulse Resp BP Pulse Ox 99.2 F 61 9 105/56 95 01/12/18 03:36 01/12/18 08:00 01/12/18 08:00 01/12/18 08:00 01/12/18 08:00 lying in bed in nad perr eomi trach site clean thick secretions suctioned rhonchorous breath sounds s1 s2 nl peg site with some blood under button no le edema A+O x3 globally weak but grossly nonfocal Acetaminophen (Tylenol Adult Liq*) 650 mg NG TUBE Q4H PRN PRN Reason: FEVER/PAIN Last Admin: 01/11/18 02:38 Dose: 650 mg Albuterol/Ipratropium (Duoneb (Albuterol 2.5 Mg/Ipratropium 0.5 Mg)) 1 neb INH Q4H PRN PRN Reason: SOB/WHEEZING Last Admin: 01/04/18 15:19 Dose: 1 neb Chlorhexidine Gluconate (Peridex Mouth Wash 0.12%*) 15 ml TOPICAL Q4H JUAN Last Admin: 01/12/18 08:08 Dose: 15 ml Enoxaparin Sodium (Lovenox(*)) 40 mg SUBCUT Q24H JUAN Last Admin: 01/12/18 08:08 Dose: 40 mg Famotidine (Pepcid Susp*) 20 mg G TUBE DAILY COUNT INCLUDES [facility] Last Admin: 01/12/18 08:08 Dose: 20 mg Fentanyl (Duragesic Patch 50 Mcg/Hr*) 50 mcg TRANSDERM Q72H JUAN Last Admin: 01/11/18 10:57 Dose: 50 mcg Heparin Sodium (Porcine) (Heparin Flush Port (Ivad)) 5 ml FLUSH DAILY JUAN; Protocol Last Admin: 01/12/18 08:08 Dose: 5 ml Insulin Human Regular (Insulin Regular(*)) 0 units SUBCUT Q6HR [facility]; Protocol Last Admin: 01/12/18 05:46 Dose: 2 units Oxycodone/Acetaminophen (Percocet 5/325 Tab*) 1 tab NG TUBE Q4H PRN PRN Reason: Pain Last Admin: 08/10/18 19:39 Dose: 1 tab Pharmacy Profile Note (Fentanyl Patch Check Q Shift) 1 note FOLLOW UP 0700, 1900 [facility] Last Admin: 01/12/18 07:57 Dose: 1 note Pharmacy Profile Note (Scopolamine Patch Remove*) 1 note PATCH OFF Q72H [facility] Last Admin: 01/10/18 11:15 Dose: 1 dose Polyethylene Glycol/Electrolytes (Miralax*) 17 gm NG TUBE Q12H PRN PRN Reason: CONSTIPATION Scopolamine (Transderm-Scop 1.5 Mg Patch*) 1 patch TRANSDERM Q72H [facility]CLUDES [facility] Last Admin: 01/10/18 11:11 Dose: 1 patch Senna (Senokot Tab*) 1 tab NG TUBE BID [facility]CLUD[facility] Last Admin: 01/12/18 08:07 Dose: 1 tab Sotalol HCl (Sotalol (Nf)) 60 mg PO BID [facility] Last Admin: 01/12/18 08:07 Dose: 60 mg Tramadol HCl (Ultram*) 50 mg NG TUBE Q6HR PRN PRN Reason: PAIN Last Admin: 01/11/18 19:39 Dose: 50 mg Zolpidem Tartrate (Ambien Tab*) 5 mg NG TUBE BEDTIME PRN PRN Reason: INSOMNIA Last Admin: 01/11/18 21:19 Dose: 5 mg Assessment: 72 year old with Alk positive metastatic cancer. Developed acute respiratory failure and now with trach and PEG. Has been on spontaneous respirations since yesterday so will try trach collar today. Agrees to no escalation of care, DNI , and hospice on discharge. Plan: 1. Delerium. improved with limiting fentanyl and decrease of Ambien to 5 mg qhs 2. Vent. Continue weaning trials 3. FEN. On tube feeds and will continue indefinitely. 4. Cardiac. Discussed AICD. Will turn off to be compatible with DNI. Discussed again with Dr. penny today as it does not appear to have happened as of yet 5. DM. BS are stable 6. Disp to NH with re-hab and vent management. Hospice on discharge. 7. Continue PT, speech therapy.
--- NOTE | 2018-01-12 09:56 | PN ---
Date of Service: 01/12/18 - [facility] note Critical Care Services: Pt seen and examined at bedside, no acute events o/n. Has episode of hypoxia that responded to suctioning last night Vitals, meds, labs reviewed Vital Signs: Temp Pulse Resp BP SpO2 FiO2 99.2 F 60 18 93/56 95 25 01/12/18 03:36 01/12/18 09:41 01/12/18 09:41 01/12/18 09:00 01/12/18 09:41 01/12 09:41 Physical Exam: Gen: Pt in NAD, alert, awake HEENT:Trach+, site erythematous, dressing dry Lungs: Diminished air entry b/l, scaterred rhonchi+ Cardiac: S1, S2+, regular Abdomen: Soft, BS+ Extremities: No edema Neuro: Alert, awake, no focal defecits Skin: No rash or bruise Fluid Balance (Past 24 Hours): I= 1192 O= 345 Net 847 Intake & Output 01/10/18 01/11/18 01/12/18 01/13/18 06:59 06:59 06:59 06:59 Intake Total 1065 1192 Output Total 875 795 345 Balance -875 270 847 Weight 206 lb 5.643 oz 204 lb 5.896 oz 202 lb 13.204 oz Intake: Oral 100 Tube Feeding 765 942 Tube Feeding Flush Amount 300 150 Output: Urine 875 520 345 Saul 275 Other: Estimated Void Medium Medium Large Date of Last Bowel 01/11/2018 Movement # Bowel Movements 1 1 Estimated Stool Amount Medium Small Small # Voids 1 1 Labs: Laboratory Results - last 24 hr 01/11/18 01/11/18 01/11/18 15:31 17:11 23:45 POC Glucose (mg/dL) 157 H 171 H 161 H 01/12/18 05:40 POC Glucose (mg/dL) 165 H Studies: No new studies Nutrition: Tube feeds Impression: 72M with htn, hld, dm, cad, chf, af s/p ppm, copd, metastatic presumed lung ca, no longer candidate for treatment, admitted to floor for dehydration, was intubated and brought to ICU on 12/29 after being found to be unresponsive with agonal breathing on floor. He was difficult intubation likely sec to subglottic stenosis from cancer, had trach placed by ENT, had PEG placed for dysphagia. 1. Acute hypoxic and hypercapnic resp failure s/p intubation and trach placement given need for prolonged intubation 2. 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 Dysphagia s/p PEG placement 6. CHF, CAD, AF s/p AICD 7. Hypotension 8. Copius secretions Plan: Neuro - - No further episodes of agitatation after Ambien dose reduced - On Fentanyl patch and percocet - Aspiration precautions CV - Slightly hypotensive this am - S/p AICD - c/w asa/bblocker - Will hold beta maria esther if hypotension continues Pulm - acute respiratory failure with hypoxia and hypercapnea - multifactorial 2 /2 tracheal stenosis, lung ca, and COPD - s/p trach - Tolerating weaning well - Having secretions, needing frequent suctioning - scopolomine patch - Pulm toilet - Plan to transition to trach collar today ID - Normal WBC - afebrile - no signs of sepsis GI - - s/p peg - c/w PEG feeds Renal - No electrolyte issues - monitor i/o - Minimize lab draws Heme/Onc - Anemia, Lung cancer - no longer candidate for treatment - hospice placement Endo - DM - Monitor BS, insulin sliding scale Lines - Port, peripheral IV DNR Discharge to [facility] facility on Sunday. Critical Care Time: 25 min
[2018-01-12] MEDS: oxyCODONE/Acetamin 5/325 MG* TAB NG TUBE PRN ×2 (11:31→19:40)
[2018-01-12] MEDS: traMADol TAB* 50 MG NG TUBE PRN (19:40)
[2018-01-12] MEDS: Zolpidem TAB* 5 MG NG TUBE PRN (21:33)
[2018-01-13] MEDS: Insulin REGULAR(*) 1 UNITS UNIT SUBCUT SCH ×4 (02:27→18:24)
[2018-01-13] MEDS: Chlorhexidine MOUTHWASH 0.12%* 15 ML UDC TOPICAL SCH ×6 (02:28→20:44)
--- NOTE | 2018-01-13 07:35 | PN ---
Progress Note - Progress Note Date of Service: 01/13/18 SOAP: Subjective: sitting up in a chair overall feeling better today. tolerated trach collar for short periods of time yesterday. still with very thick secretions (malodorous) . Objective: Vital Signs Temp Pulse Resp BP Pulse Ox 98.5 F 60 22 123/66 97 01/13/18 03:24 01/13/18 06:00 01/13/18 05:30 01/13/18 06:00 01/13/18 06:00 sitting up in chair in nad watching tv perr eomi trach site with thick velez secretions diffuse rhonchi s1 s2 nl obese, nt +bs no le edema A+O x 3 nonfocal neurological exam Acetaminophen (Tylenol Adult Liq*) 650 mg NG TUBE Q4H PRN PRN Reason: FEVER/PAIN Last Admin: 01/11/18 02:38 Dose: 650 mg Albuterol/Ipratropium (Duoneb (Albuterol 2.5 Mg/Ipratropium 0.5 Mg)) 1 neb INH Q4H PRN PRN Reason: SOB/WHEEZING Last Admin: 01/04/18 15:19 Dose: 1 neb Chlorhexidine Gluconate (Peridex Mouth Wash 0.12%*) 15 ml TOPICAL Q4H [facility] Last Admin: 01/13/18 07:33 Dose: Not Given Enoxaparin Sodium (Lovenox(*)) 40 mg SUBCUT Q24H [facility] Last Admin: 01/12/18 08:08 Dose: 40 mg Famotidine (Pepcid Susp*) 20 mg G TUBE DAILY [facility] Last Admin: 01/12/18 08:08 Dose: 20 mg Heparin Sodium (Porcine) (Heparin Flush Port (Ivad)) 5 ml FLUSH DAILY [facility]; Protocol Last Admin: 01/12/18 08:08 Dose: 5 ml Insulin Human Regular (Insulin Regular(*)) 0 units SUBCUT Q6HR [facility]; Protocol Last Admin: 01/13/18 07:33 Dose: Not Given Oxycodone/Acetaminophen (Percocet 5/325 Tab*) 1 tab NG TUBE Q4H PRN PRN Reason: Pain Last Admin: 01/12/18 19:40 Dose: 1 tab Pharmacy Profile Note (Fentanyl Patch Check Q Shift) 1 note FOLLOW UP 0700, 1900 [facility] Last Admin: 01/12/18 18:39 Dose: 1 note Pharmacy Profile Note (Scopolamine Patch Remove*) 1 note PATCH OFF Q72H [facility] Last Admin: 01/10/18 11:15 Dose: 1 dose Polyethylene Glycol/Electrolytes (Miralax*) 17 gm NG TUBE Q12H PRN PRN Reason: CONSTIPATION Scopolamine (Transderm-Scop 1.5 Mg Patch*) 1 patch TRANSDERM Q72H [facility] Last Admin: 01/10/18 11:11 Dose: 1 patch Senna (Senokot Tab*) 1 tab NG TUBE BID [facility] Last Admin: 01/12/18 19:39 Dose: Not Given Sotalol HCl (Sotalol (Nf)) 60 mg PO BID [facility] Last Admin: 01/12/18 19:39 Dose: 60 mg Tramadol HCl (Ultram*) 50 mg NG TUBE Q6HR PRN PRN Reason: PAIN Last Admin: 01/12/18 19:40 Dose: 50 mg Zolpidem Tartrate (Ambien Tab*) 5 mg NG TUBE BEDTIME PRN PRN Reason: INSOMNIA Last Admin: 01/12/18 21:33 Dose: 5 mg Assessment: 72 year old with Alk positive metastatic cancer. Developed acute respiratory failure and now with trach and PEG. Plan: 1. Delerium. improved, back to baseline 2. Vent. Continue weaning trials, tolerating short periods on trach collar but thick secretions will likely make this difficult 3. FEN. On tube feeds and will continue indefinitely. 4. Cardiac. Discussed AICD. Will turn off to be compatible with DNI. Apparently Dr. Mcgraw working on facilitating this 5. DM. BS are stable 6. Disp to NH with re-hab and vent management. Hospice on discharge, no escalation of care, DNR 7. Continue PT, speech therapy.
[2018-01-13] MEDS: oxyCODONE/Acetamin 5/325 MG* TAB NG TUBE PRN ×2 (07:41→20:44)
[2018-01-13] MEDS: Senna TAB NG TUBE SCH ×2 (07:41→20:44)
[2018-01-13] MEDS: Famotidine SUSP* 40 MG/5 ML ORAL.SYRIN G TUBE SCH (07:42)
[2018-01-13] MEDS: SOTALOL 120 MG PO SCH ×2 (07:42→20:45)
[2018-01-13] MEDS: Enoxaparin(*) 40 MG/0.4 ML SYR SUBCUT SCH (10:28)
[2018-01-13] MEDS: fentaNYL Patch Check Q Shift 1 NOTE FOLLOW UP SCH ×2 (10:29→19:28)
--- NOTE | 2018-01-13 10:48 | PN ---
Date of Service: 01/13/18 - [facility] f/u note Critical Care Services: Pt seen and examined at bedside, no acute events o/n. Didnot tolerate trach collar last night, doing well on spontaneous trial with pressure support Active Medications Generic Name Dose Route Start Last Admin Trade Name Freq PRN Reason Stop Dose Admin Acetaminophen 650 mg 12/29/17 21:00 01/11/18 02:38 Tylenol Adult Liq* NG TUBE 650 mg Q4H PRN Administration FEVER/PAIN Albuterol/Ipratropium 1 neb 12/29/17 09:44 01/04/18 15:19 Duoneb (Albuterol 2.5 Mg/Ipratropium 0.5 Mg) INH 1 neb Q4H PRN Administration SOB/WHEEZING Chlorhexidine Gluconate 15 ml 12/29/17 08:00 01/13/18 07:41 Peridex Mouth Wash 0.12%* TOPICAL 15 ml Q4H [facility]UAN Administration Enoxaparin Sodium 40 mg 01/10/18 10:00 01/13/18 10:28 Lovenox(*) SUBCUT 40 mg Q24H [facility] Administration Famotidine 20 mg 12/31/17 09:00 01/13/18 07:42 Pepcid Susp* G TUBE 20 mg DAILY [facility] Administration Heparin Sodium (Porcine) 5 ml 12/29/17 09:00 01/13/18 07:42 Heparin Flush Port (Ivad) FLUSH 5 ml DAILY [facility] Administration Protocol Insulin Human Regular 0 units 12/31/17 06:00 01/13/18 07:33 Insulin Regular(*) SUBCUT Not Given Q6HR [facility] Protocol Oxycodone/Acetaminophen 1 tab 12/29/17 20:31 01/13/18 07:41 Percocet 5/325 Tab* NG TUBE 1 tab Q4H PRN Administration Pain Pharmacy Profile Note 1 note 01/05/18 19:00 01/13/18 10:29 Fentanyl Patch Check Q Shift FOLLOW UP 1 note 0700,1900 [facility] Administration Pharmacy Profile Note 1 note 01/10/18 11:00 01/10/18 11:15 Scopolamine Patch Remove* PATCH OFF 1 dose Q72H [facility] Administration Polyethylene Glycol/Electrolytes 17 gm 01/09/18 10:28 Miralax* NG TUBE Q12H PRN CONSTIPATION Scopolamine 1 patch 01/07/18 11:00 01/10/18 11:11 Transderm-Scop 1.5 Mg Patch* TRANSDERM 1 patch Q72H [facility] Administration Senna 1 tab 12/29/17 20:32 01/13/18 07:41 Senokot Tab* NG TUBE 1 tab BID [facility] Administration Sotalol HCl 60 mg 12/24/17 21:00 01/13/18 07:42 Sotalol (Nf) PO 60 mg BID [facility] Administration Tramadol HCl 50 mg 12/29/17 20:30 01/12/18 19:40 Ultram* NG TUBE 50 mg Q6HR PRN Administration PAIN Zolpidem Tartrate 5 mg 01/11/18 08:51 01/12/18 21:33 Ambien Tab* NG TUBE 5 mg BEDTIME PRN Administration INSOMNIA Vital Signs: Temp Pulse Resp BP SpO2 FiO2 98.8 F 60 18 111/64 100 25 01/13/18 07:51 01/13/18 10:01 01/13/18 10:38 01/13/18 10:01 01/13/18 10:01 01/13 08:00 Physical Exam: Gen: Pt in NAD, sitting up in chair HEENT: Trach +, PERRLA Lungs: Diminished air entry, mild rhonchi+ Cardiac: S1, S2+, regular Abdomen: Soft, BS+ Extremities: No edema Neuro: No focal deficits Fluid Balance (Past 24 Hours): R=2321 O= 150 Net 1353 Intake & Output 01/11/18 01/12/18 01/13/18 01/14/18 06:59 06:59 06:59 06:59 Intake Total 1065 1192 1503 Output Total 795 345 150 Balance 692 672 8621 Weight 204 lb 5.896 oz 202 lb 13.204 oz Intake: Oral 100 0 Tube Feeding 719 534 0949 Tube Feeding Flush Amount 300 150 300 Output: Urine 520 345 150 Saul 275 Other: Estimated Void Medium Large Date of Last Bowel 01/11/2018 Movement # Bowel Movements 1 Estimated Stool Amount Small Small # Voids 1 Labs: Laboratory Results - last 24 hr 01/12/18 01/12/18 01/13/18 11:41 17:07 00:01 POC Glucose (mg/dL) 195 H 167 H 141 H Studies: No new studies Nutrition: Tube feeds Impression: 72M with htn, hld, dm, cad, chf, af s/p ppm, copd, metastatic presumed lung ca, no longer candidate for treatment, admitted to floor for dehydration, was intubated and brought to ICU on 12/29 after being found to be unresponsive with agonal breathing on floor. He was difficult intubation likely sec to subglottic stenosis from cancer, had trach placed by ENT, had PEG placed for dysphagia. 1. Acute hypoxic and hypercapnic resp failure s/p intubation and trach given need for prolonged intubation 2. COPD, stable 3. 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 Dysphagia s/p PEG placement 6. CHF, CAD, AF s/p AICD, stable 7. Hypotension, resolved 8. Copius secretions, requires frequent trach suctioning Plan: Neuro - - No further episodes of agitatation after Ambien dose reduced - c/w Fentanyl patch and percocet - Aspiration precautions CVS - S/p AICD - c/w asa/bblocker Pulm - acute respiratory failure with hypoxia and hypercapnea - multifactorial 2 /2 tracheal stenosis, lung ca, and COPD - s/p trach - Tolerating weaning well - Having secretions, needing frequent suctioning, will recheck sputum cx - scopolomine patch - Pulm toilet - Plan to transition to trach collar today if tolerates ID - Normal WBC - afebrile - no signs of sepsis GI - - s/p peg - c/w PEG feeds Renal - No electrolyte issues - monitor i/o - Minimize lab draws Heme/Onc - Anemia, Lung cancer - no longer candidate for treatment - hospice placement pending Endo - DM - Monitor BS, insulin sliding scale Lines - Port, peripheral IV DNR Discharge to vent facility on Sunday. Critical Care Time: 25 min
[2018-01-13] MEDS: Scopolamine PATCH Remove* 1 NOTE MISC PATCH OFF SCH (11:26)
[2018-01-13] MEDS: traMADol TAB* 50 MG NG TUBE PRN ×2 (11:38→23:12)
[2018-01-13] MEDS: Scopolamine 1.5 mg* PATCH TRANSDERM SCH (11:43)
[2018-01-13] MEDS: Zolpidem TAB* 5 MG NG TUBE PRN (23:12)
[2018-01-14] MEDS: Insulin REGULAR(*) 1 UNITS UNIT SUBCUT SCH ×5 (00:25→18:27)
[2018-01-14] MEDS: Chlorhexidine MOUTHWASH 0.12%* 15 ML UDC TOPICAL SCH ×7 (00:25→23:47)
[2018-01-14] MEDS: fentaNYL Patch Check Q Shift 1 NOTE FOLLOW UP SCH ×2 (07:11→19:49)
[2018-01-14] MEDS: SOTALOL 120 MG PO SCH ×2 (07:51→22:04)
[2018-01-14] MEDS: Senna TAB NG TUBE SCH ×2 (07:51→22:00)
[2018-01-14] MEDS: Famotidine SUSP* 40 MG/5 ML ORAL.SYRIN G TUBE SCH (07:52)
[2018-01-14] MEDS: Enoxaparin(*) 40 MG/0.4 ML SYR SUBCUT SCH ×2 (07:52→08:01)
--- NOTE | 2018-01-14 10:22 | PN ---
Progress Note - Progress Note Date of Service: 01/14/18 SOAP: Subjective: DISCHARGE NOTE [He had continued trial off vent and did well until secretions and plug. Now back on ventilator. Planning transfer to [facility] today. He was not motivated over weekend and not working with PT. Very fatigued today. Denies pain. Feels breathing is "gurgling". No fevers. Objective: [] Vital Signs Temp Pulse Resp BP Pulse Ox 99 F 61 14 108/71 96 01/14/18 07:37 01/14/18 09:00 01/14/18 08:00 01/14/18 09:00 01/14/18 09:00 ]No distress HEENT w/trach, no bleeding Trach: thick secretions, off color odorous Lungs: course sounds, no wheezing RRR S1S2 +BS, obese, PEG Ext warm Neuro is responsive difficulty collecting thoughts, grossly non focal. Impression: 72 year old with Alk positive metastatic cancer. Developed acute respiratory failure and now with trach and remains on Vent, failed weaning trails second to secretions. He has aspiration, now with PEG. Working with PT. Transfer to chronic vent facility. He is hospice appropriate and expect progression of malignancy. He want to stay on vent but understands can not have additional therapy for cancer. Agrees to no escalation of care, DNI, and hospice on discharge. Plan: 1. Transfer today. 2. Vent. Continue weaning trials. I suspect occult aspiration was one cause of decline. 3. FEN. PEG in place and tolerating tube feeds, continue laxative. 4. Cardiac. Discussed AICD is turned off. 5. DM. BS are stable, dc on glipizide and insulin per SS. 6. No cancer therapy, DNR, no escalation of care. Hospice appropriate. 7. Continue PT, speech therapy, weaning at new facility.
[2018-01-14] MEDS: oxyCODONE/Acetamin 5/325 MG* TAB NG TUBE PRN ×3 (11:46→22:00)
[2018-01-14] MEDS: traMADol TAB* 50 MG NG TUBE PRN (13:41)
--- NOTE | 2018-01-14 14:39 | PN ---
Progress Note - Progress Note Date of Service: 01/14/18 Note: Progress Note Critical Care 24 hour events/significant events: -no acute events overnight; on vent, awake, alert. No distress. Able to speak over trach. Follows commands. -low volumes on trach during prep for discharge, bronch done, some obstruction distally. no resp /hemodyn compromise,holding transfer Vitals: Vital Signs Temp 99.1 F 01/14/18 11:28 Pulse 62 01/14/18 10:00 Resp 20 01/14/18 11:46 BP 117/67 01/14/18 11:00 Pulse Ox 100 01/14/18 10:00 Intake & Output 01/13/18 01/14/18 01/14/18 18:59 06:59 18:59 Intake Total 637 1798 1699 Output Total 300 575 Balance 337 1223 1699 Weight 95.1 kg 95.6 kg 94.9 kg Intake: Tube Feeding 637 1348 1249 Tube Feeding Flush Amount 0 450 450 Output: Urine 300 575 O2/Vent: AC 14/450/+5/40% Infusions: heplock Medications: Acetaminophen (Tylenol Adult Liq*) 650 mg NG TUBE Q4H PRN PRN Reason: FEVER/PAIN Last Admin: 01/11/18 02:38 Dose: 650 mg Albuterol/Ipratropium (Duoneb (Albuterol 2.5 Mg/Ipratropium 0.5 Mg)) 1 neb INH Q4H PRN PRN Reason: SOB/WHEEZING Last Admin: 01/04/18 15:19 Dose: 1 neb Chlorhexidine Gluconate (Peridex Mouth Wash 0.12%*) 15 ml TOPICAL Q4H [facility] Last Admin: 01/14/18 07:50 Dose: 15 ml Enoxaparin Sodium (Lovenox(*)) 40 mg SUBCUT Q24H [facility] Last Admin: 01/14/18 08:01 Dose: Not Given Famotidine (Pepcid Susp*) 20 mg G TUBE DAILY [facility] Last Admin: 01/14/18 07:52 Dose: 20 mg Heparin Sodium (Porcine) (Heparin Flush Port (Ivad)) 5 ml FLUSH DAILY [facility]; Protocol Last Admin: 01/14/18 07:52 Dose: 5 ml Insulin Human Regular (Insulin Regular(*)) 0 units SUBCUT Q6HR [facility]; Protocol Last Admin: 01/14/18 07:17 Dose: 2 units Oxycodone/Acetaminophen (Percocet 5/325 Tab*) 1 tab NG TUBE Q4H PRN PRN Reason: Pain Last Admin: 01/14/18 11:46 Dose: 1 tab Pharmacy Profile Note (Fentanyl Patch Check Q Shift) 1 note FOLLOW UP 0700, 1900 [facility] Last Admin: 01/14/18 07:11 Dose: 1 note Pharmacy Profile Note (Scopolamine Patch Remove*) 1 note PATCH OFF Q72H [facility] Last Admin: 01/13/18 11:26 Dose: 1 dose Polyethylene Glycol/Electrolytes (Miralax*) 17 gm NG TUBE Q12H PRN PRN Reason: CONSTIPATION Scopolamine (Transderm-Scop 1.5 Mg Patch*) 1 patch TRANSDERM Q72H [facility] Last Admin: 01/13/18 11:43 Dose: 1 patch Senna (Senokot Tab*) 1 tab NG TUBE BID [facility] Last Admin: 01/14/18 07:51 Dose: 1 tab Sotalol HCl (Sotalol (Nf)) 60 mg PO BID [facility] Last Admin: 01/14/18 07:51 Dose: 60 mg Tramadol HCl (Ultram*) 50 mg NG TUBE Q6HR PRN PRN Reason: PAIN Last Admin: 01/14/18 13:41 Dose: 50 mg Zolpidem Tartrate (Ambien Tab*) 5 mg NG TUBE BEDTIME PRN PRN Reason: INSOMNIA Last Admin: 01/13/18 23:12 Dose: 5 mg Physical Exam: General: awake, alert, no distress, no diaphoresis Head: normocephalic, atraumatic HEENT: no pallor, no icterus, moist mucous membranes Neck: soft, supple, no jvd; trach++ CVS: normal rate, regular, no murmur Resp: bilateral air entry, no rhales, no wheeze, no rhonchi, no acc muscle use Abdomen: soft, nontender, nondistended, bowel sounds present; PEG+ Ext: pulses+, warm, no edema Skin: intact, no breakdown, no dryness Neuro: awake, alert, orientedx3, moving all extremities, no gross focal deficit Labs: Laboratory Results - last 24 hr 08/12/18 08/12/18 08/13/18 17:46 23:56 07:14 POC Glucose (mg/dL) 171 H 153 H 186 H Imaging: reviewed Assessment: 72M with htn, hld, dm, cad, chf, af s/p ppm, copd, metastatic presumed lung ca, no longer candidate for treatment, admitted to floor for dehydration, was intubated and brought to ICU on 12/29 after being found to be unresponsive with agonal breathing on floor. He was difficult intubation likely sec to subglottic stenosis from cancer, had trach placed by ENT, had PEG placed for dysphagia. 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 Delirium prec. CVS- BP stable. Cont asa/bb Resp- stable on vent overnight. Secretions + but seems to be getting better slowly. Improved after lavage yesterday. VAP bundle -issue with trach, poor volumes, difficulty passing suctioning cathetor. bedside bronchoscopy done for visualization and noted some soft tissue obstruction at lower end, once passed through side distal trachea and airways are patent. -discusses with ENT, they will come in evening, will decide on trach change in size and or length. will rescope at that time. -holding plan for transfer to vent facility today ID- tmax 99. Wbc 11, down from 13. Sputum growth as prior with staph aureus. No abx. Colonized? GI- PEG feeds, tolerating glucerna 1.2. GI proph. Renal- making urine. No recent BMP. Heme- hg 8-9. Plt okay. Dvt prophylaxis Endo- fingersticks q6h, <200 Musculsk- pressure ulcer prophylaxis. Bedrest. Wounds- none Nutrition- glucerna tube feeds DVT prophylaxis: lovenox sq GI prophylaxis: pepcid Central Line: no Arterial Line: no Saul Cathetor: no Disposition: ICU Code Status: full code Total Critical Care time is 40 minutes, excluding procedures/teaching Efraín Harding MD Pack Train [employer] (Electronically Signed)
--- NOTE | 2018-01-14 19:39 | DS ---
DISCHARGE SUMMARY: DATE OF ADMISSION: 12/24/17 DATE OF DISCHARGE: 01/14/18 DISCHARGE DIAGNOSES: 1. 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 2. Acute respiratory failure from mucus plugging. 3. Respiratory muscle weakness and failure to thrive off ventilator. 4. Muscular deconditioning. 5. Silent aspiration with nectar consistency food, status post PEG. PROCEDURES: 1. Tracheostomy tube. 2. PEG tube placement. HOSPITAL COURSE: Mr. Mcmahon came in on 12/24/17. He had been treated with alectinib for metastat ic cancer, presumed lung based on immunohistochemical stains. He had recently come back from vacation . His energy was good but had subsequently developed more difficulty walking as well as shoulder and hip pain. He is having some increasing fatigue, weakness and decreasing appetite. Laboratory tests showed dehydration. He was brought in and given IV fluids and did seem to improve somewhat during t he first 4 days of admission. He remained very weak with little p.o. intake which is what kept him i n the hospital. He had a PT consult and respiratory consult for shortness of breath. On the evening of 12/29/17, he developed respiratory failure, found with agonal breathing on the floor. Chest x- r ay showed a complete white out of the right lung. He required intubation on the floor which was comp licated by partial vocal cord paralysis and difficulty placing the ET tube. On the afternoon of 12/03 01/19, he had a bronchoscopy and was found to have extensive mucus plugging that was cleared out. X-r ay improved subsequently. He had multiple venting trials from 12/30/17 through 01/02/18 but would dev elop respiratory fatigue after 12-14 hours without support. There was no clear reason for difficulty weaning other than muscle fatigue and decision was made for tracheostomy. Tracheostomy was placed o n 01/04/[address] Dee. Between 01/04/18 and 01/14/18, he has continued to work on weaning off the vent. He would go up to 24 hours but then developed secretions, mucus plugging and required recurrent ventilatory support. He has swallowing evaluation done on 01/07/18 which he failed and had a video assisted swallow evaluation on 01/08/18 which showed extensive silent aspiration. When he did the swallowing study, he did not report any problems and he seemed to eat well but then b lue dye would appear out of his trach. Based on these studies, a PEG was placed on 01/07/18. He has been on tube feeds since that time. Over the last several days, it was more or less the same with mu cus plugging and secretions ending prolonged periods without respiratory support. Plan at this time is transfer to a chronic ventilatory facility. He has had metastatic cancer. He had fairly low disease burden with several small liver lesions and question of peritoneal disease as well as supraclavicular lymph node and iliac bone lesion. He has b een started on oral therapy as noted above approximately 3 weeks prior to admission. CT scans on adm ission showed essentially stable disease without clear response. Given his functional decline, there were extensive discussions with family and he is not a candidate for further therapy. I discussed w ithdrawal of care. The patient had strong wishes to continue living even with ventilatory support. He did agree no escalation of treatment including no antibiotics. The patient and family understand his disease is terminal and are accepting of hospice support once he reaches the next facility. Ultimately his cancer will grow and he will deteriorate further, dying from his malignancy. DISCHARGE MEDICATIONS: 1. Acetaminophen 650 and 20.3 cc q.4 p.r.n. 2. Albuterol nebulizer 3 mL solution q.4 p.r.n. 3. Chlorhexidine mouthwash q.4 p.r.n. 4. Lovenox 40 mg subcutaneous daily. 5. Famotidine 40 mg solution daily. 6. Insulin medium dose protocol with lispro. 7. Oxycodone 5/325 q.4 p.r.n. 8. MiraLAX 17 g q.12 p.r.n. 9. Scopolamine patch 1.5 q.72 hours. 10. Senna 1 tab b.i.d. per NG tube. 11. Sotalol 60 mg b.i.d. 12. Tramadol 50 mg q.6 p.r.n. 13. Ambien 5 mg at night. 14. Fentanyl patch 25 mcg q.72 hours. He will be in the ventilation facility going forward. We would like to monitor how he is doing and w ill continue to be available for assistance whenever we can. [id number]/[facility] #: [id number]
[2018-01-14] MEDS: Zolpidem TAB* 5 MG NG TUBE PRN (22:00)
[2018-01-15] MEDS: Insulin REGULAR(*) 1 UNITS UNIT SUBCUT SCH ×2 (00:05→06:06)
[2018-01-15] MEDS: Chlorhexidine MOUTHWASH 0.12%* 15 ML UDC TOPICAL SCH ×2 (04:14→07:43)
[2018-01-15] MEDS: fentaNYL Patch Check Q Shift 1 NOTE FOLLOW UP SCH (07:42)
[2018-01-15] MEDS: oxyCODONE/Acetamin 5/325 MG* TAB NG TUBE PRN (07:43)
[2018-01-15] MEDS: SOTALOL 120 MG PO SCH (08:29)
[2018-01-15] MEDS: Famotidine SUSP* 40 MG/5 ML ORAL.SYRIN G TUBE SCH (08:30)
[2018-01-15] MEDS: Senna TAB NG TUBE SCH (08:31)
--- NOTE | 2018-01-15 09:46 | OP ---
OPERATIVE REPORT: DATE OF OPERATION: 01/14/18 DATE OF : 47 SURGEON: Yusuf Tamayo MD PRE-OP DIAGNOSIS: POST-OP DIAGNOSIS: OPERATIVE PROCEDURES: Bronchoscopy and reintubation of tracheostoma. BRIEF HISTORY: This 72-year-old gentleman, previous tracheostomy 7 days ago, his trach appeared to h ave kind of dual false passage. He was having some difficulty with ventilation and respiration. DESCRIPTION OF PROCEDURE: At the bedside it was obvious to take within the incorrect position and th e tissue anterior trachea. I removed a #[address] in [address]. Bronchoscope was then used to exa mine and reidentify the tracheal stoma. A #8 longer tube was then placed. It was secured in place. Ventilation was now satisfactory. The patient tolerated the procedure without any difficulty. [id number]/[facility] #: [id number]
[2018-01-15] MEDS: Enoxaparin(*) 40 MG/0.4 ML SYR SUBCUT SCH (10:05)
[2018-01-15] MEDS: traMADol TAB* 50 MG NG TUBE PRN (10:44)
--- NOTE | 2018-01-15 10:56 | PN ---
Progress Note - Progress Note Date of Service: 01/15/18 Note: Progress Note Critical Care 24 hour events/significant events: -yesterday transfer held due to trach malfunction; upon ENT eval, seems trach was in false lumen and not in trachea -new 8.0 XLT trach placed under fiberoptic scope into trach; volumes improved and stable on vent overnight -awake/alert, no distress. secretiosn present still -afebrile Vitals: Vital Signs Temp 98.6 F 01/15/18 07:51 Pulse 60 01/15/18 09:00 Resp 17 01/15/18 07:43 BP 91/59 01/15/18 09:00 Pulse Ox 92 01/15/18 09:00 Intake & Output 01/14/18 01/15/18 01/15/18 18:59 06:59 18:59 Intake Total 2484 1434 Output Total 300 Balance 2484 1134 Weight 94.9 kg 95.3 kg Intake: Tube Feeding 1884 1247 Tube Feeding Flush Amount 600 187 Output: Urine 300 O2/Vent: AC 14/450/+5/40% Infusions: heplock Medications: Acetaminophen (Tylenol Adult Liq*) 650 mg NG TUBE Q4H PRN PRN Reason: FEVER/PAIN Last Admin: 01/11/18 02:38 Dose: 650 mg Albuterol/Ipratropium (Duoneb (Albuterol 2.5 Mg/Ipratropium 0.5 Mg)) 1 neb INH Q4H PRN PRN Reason: SOB/WHEEZING Last Admin: 01/04/18 15:19 Dose: 1 neb Chlorhexidine Gluconate (Peridex Mouth Wash 0.12%*) 15 ml TOPICAL Q4H JUAN Last Admin: 01/15/18 07:43 Dose: 15 ml Enoxaparin Sodium (Lovenox(*)) 40 mg SUBCUT Q24H JUAN Last Admin: 01/15/18 10:05 Dose: 40 mg Famotidine (Pepcid Susp*) 20 mg G TUBE DAILY JUAN Last Admin: 01/15/18 08:30 Dose: 20 mg Heparin Sodium (Porcine) (Heparin Flush Port (Ivad)) 5 ml FLUSH DAILY JUAN; Protocol Last Admin: 01/15/18 08:37 Dose: Not Given Insulin Human Regular (Insulin Regular(*)) 0 units SUBCUT Q6HR JUAN; Protocol Last Admin: 01/15/18 06:06 Dose: 2 units Oxycodone/Acetaminophen (Percocet 5/325 Tab*) 1 tab NG TUBE Q4H PRN PRN Reason: Pain Last Admin: 01/15/18 07:43 Dose: 1 tab Pharmacy Profile Note (Fentanyl Patch Check Q Shift) 1 note FOLLOW UP 0700, 1900 [facility] Last Admin: 01/15/18 07:42 Dose: 1 note Pharmacy Profile Note (Scopolamine Patch Remove*) 1 note PATCH OFF Q72H [facility] Last Admin: 01/13/18 11:26 Dose: 1 dose Polyethylene Glycol/Electrolytes (Miralax*) 17 gm NG TUBE Q12H PRN PRN Reason: CONSTIPATION Scopolamine (Transderm-Scop 1.5 Mg Patch*) 1 patch TRANSDERM Q72H [facility] Last Admin: 01/13/18 11:43 Dose: 1 patch Senna (Senokot Tab*) 1 tab NG TUBE BID [facility] Last Admin: 01/15/18 08:31 Dose: Not Given Sotalol HCl (Sotalol (Nf)) 60 mg PO BID [facility] Last Admin: 01/15/18 08:29 Dose: 60 mg Tramadol HCl (Ultram*) 50 mg NG TUBE Q6HR PRN PRN Reason: PAIN Last Admin: 01/15/18 10:44 Dose: 50 mg Zolpidem Tartrate (Ambien Tab*) 5 mg NG TUBE BEDTIME PRN PRN Reason: INSOMNIA Last Admin: 01/14/18 22:00 Dose: 5 mg Physical Exam: General: awake, alert, no distress, no diaphoresis Head: normocephalic, atraumatic HEENT: no pallor, no icterus, moist mucous membranes Neck: soft, supple, no jvd; trach++ CVS: normal rate, regular, no murmur Resp: bilateral air entry, no rhales, no wheeze, no rhonchi, no acc muscle use Abdomen: soft, nontender, nondistended, bowel sounds present; PEG+ Ext: pulses+, warm, no edema Skin: intact, no breakdown, no dryness Neuro: awake, alert, orientedx3, moving all extremities, no gross focal deficit Labs: Laboratory Results - last 24 hr 01/14/18 01/14/18 01/15/18 18:23 23:55 05:55 POC Glucose (mg/dL) 179 H 168 H 159 H Imaging: reviewed Assessment: 72M with htn, hld, dm, cad, chf, af s/p ppm, copd, metastatic presumed lung ca, no longer candidate for treatment, admitted to floor for dehydration, was intubated and brought to ICU on 12/29 after being found to be unresponsive with agonal breathing on floor. He was difficult intubation likely sec to subglottic stenosis from cancer, had trach placed by ENT, had PEG placed for dysphagia. 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 Delirium prec. CVS- BP stable. Cont asa/bb Resp- stable on vent overnight. Secretions +. VAP bundle -Trach changed to 8.0 XLT; stable volumes ID- tmax 99. Sputum growth as prior with staph aureus. No abx. Colonized? GI- PEG feeds, tolerating glucerna 1.2. GI proph. Renal- making urine. Heme- Dvt prophylaxis Endo- fingersticks q6h, <200 Musculsk- pressure ulcer prophylaxis. Bedrest. pt/ot Wounds- none Nutrition- glucerna tube feeds DVT prophylaxis: lovenox sq GI prophylaxis: pepcid Central Line: no Arterial Line: no Saul Cathetor: no Disposition: ICU; for violetfer now to local company [employer] vent facility Code Status: full code Efraín Harding MD [employer] (Electronically Signed)
[2018-01-15 11:50] VITALS: BP 106/68
== END 2018-01-15 11:00 | DRG 3 ==
LOC: MED 13:48 → ICU 12-29 06:38
PROVIDERS: ADMIT Internal Medicine Hematology & Oncology; ATTEND Internal Medicine Hematology & Oncology
PROC: 0B9L8ZZ Drainage of Left Lung, Via Natural or Artificial Opening Endoscopic (ICD-10-PCS; 2017-12-29)
PROC: 5A1955Z Respiratory Ventilation, Greater than 96 Consecutive Hours (ICD-10-PCS; 2017-12-29)
PROC: 0BH17EZ Insertion of Endotracheal Airway into Trachea, Via Natural or Artificial Opening (ICD-10-PCS; 2017-12-29)
PROC: 02HV33Z Insertion of Infusion Device into Superior Vena Cava, Percutaneous Approach (ICD-10-PCS; 2018-01-03)
PROC: 0B110F4 Bypass Trachea to Cutaneous with Tracheostomy Device, Open Approach (ICD-10-PCS; 2018-01-04)
PROC: 0BP1XDZ Removal of Intraluminal Device from Trachea, External Approach (ICD-10-PCS; 2018-01-04)
PROC: 0DP67UZ Removal of Feeding Device from Stomach, Via Natural or Artificial Opening (ICD-10-PCS; 2018-01-04)
PROC: 0BJ08ZZ Inspection of Tracheobronchial Tree, Via Natural or Artificial Opening Endoscopic (ICD-10-PCS; 2018-01-09)
PROC: 3E0G76Z Introduction of Nutritional Substance into Upper GI, Via Natural or Artificial Opening (ICD-10-PCS; 2018-01-09)
PROC: 0DH63UZ Insertion of Feeding Device into Stomach, Percutaneous Approach (ICD-10-PCS; 2018-01-09)
PROC: 0B110F4 Bypass Trachea to Cutaneous with Tracheostomy Device, Open Approach (ICD-10-PCS; principal; 2018-01-14)
DX: C34.90 Malignant neoplasm of unspecified part of unspecified bronchus or lung (principal); J96.02 Acute respiratory failure with hypercapnia; J96.01 Acute respiratory failure with hypoxia; J98.11 Atelectasis; C77.0 Secondary and unspecified malignant neoplasm of lymph nodes of head, face and neck; N13.30 Unspecified hydronephrosis; N17.9 Acute kidney failure, unspecified; E46 Unspecified protein-calorie malnutrition; M25.552 Pain in left hip; M25.512 Pain in left shoulder; I48.91 Unspecified atrial fibrillation; N40.0 Benign prostatic hyperplasia without lower urinary tract symptoms; J44.9 Chronic obstructive pulmonary disease, unspecified; I50.9 Heart failure, unspecified; I25.10 Atherosclerotic heart disease of native coronary artery without angina pectoris; I25.2 Old myocardial infarction; E78.5 Hyperlipidemia, unspecified; E11.42 Type 2 diabetes mellitus with diabetic polyneuropathy; M47.9 Spondylosis, unspecified; I34.1 Nonrheumatic mitral (valve) prolapse; F17.210 Nicotine dependence, cigarettes, uncomplicated; H53.8 Other visual disturbances; F32.9 Major depressive disorder, single episode, unspecified; M41.9 Scoliosis, unspecified; E86.0 Dehydration; D64.9 Anemia, unspecified; M25.551 Pain in right hip; I44.7 Left bundle-branch block, unspecified; K29.60 Other gastritis without bleeding; K21.9 Gastro-esophageal reflux disease without esophagitis; R62.7 Adult failure to thrive; M62.81 Muscle weakness (generalized); K76.89 Other specified diseases of liver; K66.9 Disorder of peritoneum, unspecified; M89.8X8 Other specified disorders of bone, other site; E66.9 Obesity, unspecified; I11.0 Hypertensive heart disease with heart failure; J38.00 Paralysis of vocal cords and larynx, unspecified; R13.12 Dysphagia, oropharyngeal phase; I95.9 Hypotension, unspecified; K59.00 Constipation, unspecified; E87.5 Hyperkalemia; Z66 Do not resuscitate; D72.829 Elevated white blood cell count, unspecified; T17.920A Food in respiratory tract, part unspecified causing asphyxiation, initial encounter; E87.70 Fluid overload, unspecified; X58.XXXA Exposure to other specified factors, initial encounter; Y92.239 Unspecified place in hospital as the place of occurrence of the external cause; R41.0 Disorientation, unspecified; Z92.21 Personal history of antineoplastic chemotherapy; Z79.4 Long term (current) use of insulin; Z95.5 Presence of coronary angioplasty implant and graft; Z88.1 Allergy status to other antibiotic agents; Z72.89 Other problems related to lifestyle; Z82.49 Family history of ischemic heart disease and other diseases of the circulatory system; Z80.3 Family history of malignant neoplasm of breast; Z80.1 Family history of malignant neoplasm of trachea, bronchus and lung; Z80.8 Family history of malignant neoplasm of other organs or systems; Z91.030 Bee allergy status; Z88.5 Allergy status to narcotic agent; Z91.048 Other nonmedicinal substance allergy status; Z95.0 Presence of cardiac pacemaker; Z68.29 Body mass index [BMI] 29.0-29.9, adult; Z88.8 Allergy status to other drugs, medicaments and biological substances; Z79.01 Long term (current) use of anticoagulants
CPT/HCPCS: 31622; 36415; 36600; 71045; 72192; 74019; 74230; 76775; 78306; 80048; 80053; 81003; 81015; 82550; 82607; 82668; 82728; 82803; 82947; 83540; 83550; 83605; 83735; 84100; 84134; 84484; 85025; 85027; 85652; 87070; 87077; 87086; 87186; 87205; 87641; 93005; 94002; 94003; 94640; 99156; 99157; 99223; 99231; 99232; 99233; 99239; 99406; A9270-GY; A9503; G8978-GP-CJ; G8978-GP-CK; G8978-GP-CL; G8979-GP-CI; G8979-GP-CJ; G8979-GP-CK; G8980-GP-CK; G8996-GN-CN; G8997-GN-CK; J0290; J0330; J0610; J1630; J1642; J1644; J1650; J1940; J2250; J2310; J2405; J2704; J2920; J2930; J3010

== ENCOUNTER 2018-02-06 11:56 | Observation (INO) | payer MEDICARE, BC ==
[2018-02-06] MEDS ORDERED: [UNRECOGNIZED DRUG - OTHER] ONE (14:31)
[2018-02-06] MEDS ORDERED: HYDROmorphone INJ1* 1 MG/ML SYRINGE ONE (14:41)
[2018-02-06] MEDS: HYDROmorphone INJ1* 1 MG/ML SYRINGE IV SLOW PU PRN ×2 (14:46→14:55)
[2018-02-06] MEDS ORDERED: Albuterol/Ipratropium NEB.SOL* Albuterol 2.5 MG/Ipratropium 0.5 MG 3 ML INH PRN (14:49)
[2018-02-06] MEDS ORDERED: HYDROmorphone INJ1* 1 MG/ML SYRINGE IV SLOW PU PRN (14:56)
[2018-02-06] MEDS ORDERED: Scopolamine 1.5 mg* PATCH TRANSDERM SCH (15:00)
[2018-02-06] MEDS ORDERED: Enoxaparin(*) 40 MG/0.4 ML SYR SUBCUT SCH (15:00)
[2018-02-06] MEDS ORDERED: LORazepam INJ* 2 MG/ML 1 ML VIAL IV PUSH PRN (15:01)
[2018-02-06] MEDS ORDERED: Polyethylene Glycol 3350* 17 GM PACKET PO PRN (15:02)
[2018-02-06] MEDS ORDERED: Dextrose 50% Syringe 50 ML* 25 GM/50 ML SYRINGE IV PUSH PRN (15:05)
--- NOTE | 2018-02-06 15:26 | RAD ---
HISTORY: eval for pneumonia COMPARISONS: January 06, 2018 VIEWS: 1: frontal portable view of the chest at 3:12 PM. The patient is obliqued to the left. FINDINGS: LINES AND TUBES: A left-sided pacemaker is noted. Tracheostomy tube is noted. A right-sided chest port is noted with the tip overlying the expected location of the superior vena cava. CARDIOMEDIASTINAL SILHOUETTE: The cardiomediastinal silhouette is normal for portable technique. PLEURA: There is a large right pleural effusion. LUNG PARENCHYMA: There is confluent alveolar opacification of the right mid and lower lung field and left lower lung field. ABDOMEN: The upper abdomen is clear. There is no subphrenic gas. BONES AND SOFT TISSUES: No bone or soft tissue abnormalities are noted. IMPRESSION: 1. LIMITED STUDY. 2. RIGHT PLEURAL EFFUSION. 3. RIGHT MID AND LOWER LUNG CONSOLIDATION LEFT LOWER LUNG ATELECTASIS VERSUS CONSOLIDATION
--- NOTE | 2018-02-06 15:27 | HP ---
H&P (Free Text) History and Physical: Observation H&P CC: shortness of breath HPI: 72M with htn, hld, dm, cad, copd, afib, chf, metastatic lung cancer s/p trach and peg presents with acute on chronic respiratory failure from his rehab facility. The patient was initially admitted to [facility] [place] after failing chemotherapy and progressing to respiratory failure. At that time he had a tracheostomy placed as he was unable to be weaned from the ventilator. The patient was discharge to a ventilator rehab facility as he had stated at that time he wanted to live as long as possible. He was DNR but was not ready to withdraw care. At the rehab center his functional status continued to deteriorate and was transferred back to [facility] as he may have developed pneumonia and if so was willing to withdraw care and his rehab facility was unable to perform terminal weaning. ROS - as per HPI PMHx - htn, hld, dm, cad, copd, afib, chf, metastatic lung cancer PSHx - s/p trach, s/p peg All - morphine, bees SocHx - Former smoker, rare etoh, no drugs FamHx - breast cancer, thyroid cancer, lung cancer PE Vital Signs: Temp Pulse Resp BP Pulse Ox 27 02/06/18 14:55 Gen - chronically ill HEENT - ncat, eomi, perrl Neck - +trach CV - s1/s2, tachy Lungs - cta, +ronchi Abd - +peg Ext - no cce Neuro - lethargic Labs - Pending Imaging CXR 02/06 - official read pending Impression 72M with htn, hld, dm, cad, copd, afib, chf, metastatic lung cancer presents with acute on chronic respiratory failure Plan Neuro - pain control CV - afib, chf, - c/w sotolol Pulm - acute on chronic respiratory failure, copd, pna - s/p trach - cxr with near complete opacification of the right lung - possible pneumonia - nebs prn - c/w vent support for now - family discussing withdrawal of care ID - possible pna - family declining treatment at this time - no need to draw cultures or labs GI - tube feeds Renal - monitor i/o Heme - lung cancer - terminal - likely withdrawal of care this admission Endo - dm - check fs, niss Lines - piv PPx - gi/dvt DNR Admit to ICU
[2018-02-06] MEDS ORDERED: Ondansetron INJ* 2 MG/ML VIAL IV PRN (15:32)
[2018-02-06] MEDS ORDERED: Insulin LISPRO* 1 UNITS UNIT SUBCUT SCH (18:00)
[2018-02-06] MEDS ORDERED: Sotalol TAB* 80 MG PO SCH (21:00)
[2018-02-07 05:01] VITALS: BP 45/28
--- NOTE | 2018-02-07 06:16 | DS ---
Date of Admission: 02/06/2018 Date of Discharge: 02/07/2018 Discharge Diagnoses acute on chronic hypoxic respiratory failure metastatic lung CA HPI 72M with htn, hld, dm, cad, copd, afib, chf, metastatic lung cancer s/p trach and peg presents with acute on chronic respiratory failure from his rehab facility. The patient was initially admitted to [facility] [place] after failing chemotherapy and progressing to respiratory failure. At that time he had a tracheostomy placed as he was unable to be weaned from the ventilator. The patient was discharge to a ventilator rehab facility as he had stated at that time he wanted to live as long as possible. He was DNR but was not ready to withdraw care. At the rehab center his functional status continued to deteriorate and was transferred back to [facility] as he may have developed pneumonia and if so was willing to withdraw care and his rehab facility was unable to perform terminal weaning. Hospital Course Mr Mcmahon was admitted for acute on chronic respiratory failure with the plan to withdraw supportive care and enroll in Hospice. However, during the night his blood pressure faded leading to asystole and his passing at 0450 02/07. He was comfortable throughout. Family was present. Questions were sought and answered to their satisfaction. Discharge Exam Absent respirations. Absent carotid pulses. Absent radial pulses. Absent heart sounds. Time for Discharge: <30minutes, page out to pharmaceutical physician to notify of passing w/i 24hours of admission
[2018-02-07] MEDS ORDERED: Famotidine SUSP* 40 MG/5 ML ORAL.SYRIN PEG TUBE SCH (09:00)
[2018-02-09] MEDS ORDERED: Scopolamine PATCH Remove* 1 NOTE MISC PATCH OFF SCH (15:00)
== END 2018-02-07 04:50 | disposition expired ==
LOC: ICU 14:25
PROVIDERS: ADMIT Internal Medicine; ATTEND Hospitalist
DX: J96.20 Acute and chronic respiratory failure, unspecified whether with hypoxia or hypercapnia (principal); E78.5 Hyperlipidemia, unspecified; I25.10 Atherosclerotic heart disease of native coronary artery without angina pectoris; J44.9 Chronic obstructive pulmonary disease, unspecified; C34.90 Malignant neoplasm of unspecified part of unspecified bronchus or lung; C79.9 Secondary malignant neoplasm of unspecified site; Z93.0 Tracheostomy status; I11.0 Hypertensive heart disease with heart failure; I50.9 Heart failure, unspecified; I48.91 Unspecified atrial fibrillation; E11.9 Type 2 diabetes mellitus without complications; Z79.4 Long term (current) use of insulin; Z88.8 Allergy status to other drugs, medicaments and biological substances; Z87.891 Personal history of nicotine dependence; Z79.899 Other long term (current) drug therapy
CPT/HCPCS: 71045; 94002; 96374; 96376; A9270-GY; G0378; J1170; J2270